=== PATIENT | male | born 1935 | race Caucasian/White ===

== ENCOUNTER 2023-12-28 13:05 | Inpatient (IN) | payer OTHER, SELFPAY ==
[2023-12-26 14:24] VITALS: BP 86/44
[2023-12-26 15:03] LABS: % Basophils 0.9 % (0-2); % Eosinophils 5.8 % (0-6); % Immature Granulocytes 0.2 % (0-0.5); % Lymphocytes 16.3 % (20.5-51.1); % Monocytes 18.1 % (1.7-9.3); % Neutrophils 58.7 % (42.2-75.2); Absolute Eosinophils 0.3 10^3/uL (0-0.7); Absolute Lymphocytes 0.7 10^3/uL (1.2-3.4); Absolute Monocytes 0.8 10^3/uL (0.1-0.6); Absolute Neutrophils 2.6 10^3/uL (1.4-6.5); Hematocrit 28.6 % (39.0-52.0); Hemoglobin 9.2 g/dL (13.0-18.0); Mean Corp Hgb Conc. 32.2 g/dL (33.0-37.0); Mean Corpuscular Hgb 31.2 pg (27.0-31.0); Mean Corpuscular Volume 96.9 fL (80.0-94.0); Mean Platelet Volume 9.4 fL (7.4-10.4); Nucleated Red Blood Cells % 0 % (-); Platelet Count 140 10^3/uL (130-400); Red Blood Cell Count 2.95 10^6/uL (4.70-6.10); Red Cell Dist. Width 16.8 % (11.5-14.5); White Blood Cell Count 4.5 10^3/uL (4.8-10.8)
[2023-12-26 15:18] LABS: ALT (SGPT) 39 U/L (0-50); AST (SGOT) 45 U/L (17-59); Albumin 3.1 g/dl (3.5-5.0); Alkaline Phosphatase 122 U/L (38-126); Blood Urea Nitrogen 38 mg/dl (9-20); Calcium 8.5 mg/dl (8.4-10.2); Carbon Dioxide 28 mmol/L (22-30); Chloride 101 mmol/L (98-107); Glucose 85 mg/dl (70-99); Potassium 4.7 mmol/L (3.5-5.1); Sodium 135 mmol/L (135-145); Total Bilirubin 0.7 mg/dl (0.2-1.3); Total Protein 6.8 g/dl (6.3-8.2)
[2023-12-26 15:25] LABS: NT-proBNP 6990 pg/ml; Troponin I 0.102 ng/ml
[2023-12-26 16:39] VITALS: BP 107/79
[2023-12-26 17:00] VITALS: BP 95/54
--- NOTE | 2023-12-26 17:59 | ED.GENMED ---
History of Present Illness
General
Chief Complaint: Urinary Symptoms
Source: patient
Time Seen by Provider: 12/26/23 16:32
Travel History
Have you had any contact with someone who has COVID-19?: No
Do you have any symptoms of coronavirus? Fever > 100 degrees, chills, cough, shortness of breath, sore throat, loss of taste or smell, muscle aches, or headache?: No
History of Present Illness
History of Present Illness:
88-year-old female with history of atrial fibrillation on Eliquis, CHF, hypertension, history of syncope with pacemaker presenting to the emergency department for concern of hematuria. Patient arrives with daughter. Patient notes that last night
he had difficulty passing his urine. He believes that he did pass his urine in the middle the night, however was unable to pass his urine this morning. He called his daughter. When his daughter came to his house, did eventually pass urine,
however notes that it was bright red in color. He has since began urinating, bright red in color. Denies any history of urinary retention. Denies any history of obstruction in the past. Daughter notes that patient has been increasingly weak and
fatigued. He denies any chest pain, difficulty breathing, abdominal pain, fever. Denies additional acute medical complaint
Past History
Past History
ED Past Medical History: Arrthythmia, GERD and HTN
ED Past Surgical History: Cardiac (Ablation), Orthopedic and Other (Hernia repair)
Social History
Tobacco: Non-smoker
Personal:
Living: with family
Phy Exam
Physical Exam
Physical Exam:
GENERAL: Alert , in no apparent distress
EYE: pupils equal and reactive
NECK: Supple, no significant adenopathy.
ENT: o/p clr, mmm.
CARDIAC: Regular rate and rhythm .
LUNGS: Clear breath sounds bilaterally, no acute respiratory distress, no wheezes/rales/rhonchi
ABDOMEN: Soft, without focal tenderness, no r/g, no cvat
NEUROLOGICAL: Alert and oriented, no focal neuro deficits
SKIN: Warm and dry, skin intact.
MUSCULOSKELETAL: No edema, well perfused.
PSYCH: Normal and appropriate interaction.
Course
Orders/Labs/Results
Orders:
Orders
12/26/23 14:28
Electrocardiogram (*1) Urgent
Reason for Study: Fatigue / Weakness
EKG- Treatment ONCE
12/26/23 14:44
Complete Blood Count/With Diff Urgent
Comprehensive Metabolic Panel Urgent
NT-proBNP Urgent
Troponin I Urgent
12/26/23 16:48
CT Abd/pel Without Iv Or Oral Urgent
Comment:
Reason For Exam: hematuria
12/26/23 19:30
Urinalysis Urgent
Date Specimen was Collected: 12/26/23
Time Specimen was Collected: 19:09
Urine Microscopic Urgent
Date Specimen was Collected: 12/26/23
Time Specimen was Collected: 19:09
Abnormal Lab Results
12/26/23 12/26/23
14:44 19:30
WBC 4.5 L 10^3/uL
(4.8-10.8)
RBC 2.95 L 10^6/uL
(4.70-6.10)
Hgb 9.2 L g/dL
(13.0-18.0)
Hct 28.6 L %
(39.0-52.0)
MCV 96.9 H fL
(80.0-94.0)
MCH 31.2 H pg
(27.0-31.0)
MCHC 32.2 L g/dL
(33.0-37.0)
RDW 16.8 H %
(11.5-14.5)
Absolute Lymphs (auto) 0.7 L 10^3/uL
(1.2-3.4)
Absolute Monos (auto) 0.8 H 10^3/uL
(0.1-0.6)
Lymphocytes % 16.3 L %
(20.5-51.1)
Monocytes % 18.1 H %
(1.7-9.3)
BUN 38 H mg/dl
(9-20)
Creatinine 1.7 H mg/dL
(0.7-1.3)
Troponin I 0.102 H* ng/ml
Albumin 3.1 L g/dl
(3.5-5.0)
Urine Occult Blood 4+ A
(Negative)
Urine RBC 90-100 A /HPF
(0-2)
Urine Bacteria Few A
(Negative)
12/26/23 14:44
12/26/23 14:44
Vital Signs
Initial and Last Documented VS:
Initial Vital Signs
Temp Pulse Resp BP Pulse Ox
98.7 F 64 16 86/44 95
12/26/23 14:24 12/26/23 14:24 12/26/23 14:24 12/26/23 14:24 12/26/23 14:24
Last Documented Vital Signs
Temp Pulse Resp BP Pulse Ox
98.7 F 63 9 113/75 97
12/26/23 14:24 12/26/23 19:45 12/26/23 19:45 12/26/23 18:00 12/26/23 19:45
MDM/Problems Addressed
MDM/Problems Addressed:
88-year-old male with history of atrial fibrillation on Eliquis, CHF and history of syncope with a pacemaker presenting to the emergency department for hematuria. Vital signs on arrival significant for hypotension.
On my examination, patient resting comfortably. Blood pressure has improved. Patient's abdomen is soft and nondistended, without current concern for retention. Patient reports that he just urinated. He will try to give a sample. Patient had
laboratory analysis drawn for nursing protocol, hemoglobin stable with chronic anemia. Concern for hematuria in a patient on anticoagulation with presenting hypotension and fatigue, likely volume depletion. Patient with reportedly severe CHF.
Holding IV fluids. Will obtain CT abdomen pelvis without contrast, chronic kidney disease. Will discuss with urology
18:30 -patient with slight elevation in troponin. Suspected ischemic demand. No acute ischemia. Absence of chest pain
20:30 -CT without significant acute pathology. Patient was able to urinate and completely empty his bladder with normal postvoid residual. Urine is now yellow in color. No sign of urinary tract infection on urinalysis. On reassessment, remains
stable. However, report by son and daughter at bedside increased weakness and fatigue. Presenting hypotension with mild troponin elevation and small pleural effusion. Feel patient warrants admission for continued observation for continued
monitoring of hemodynamics and hemoglobin trending. Patient agreeable to plan
21:10 -Case discussed with urology on-call. Will see patient in the morning
*EKG
Interpreted by ED Provider?: Yes
EKG Intrepretation Date: 12/26/23
EKG Intrepretation Time: 18:00
Interpretation: abnormal
Comparison EKG: changes noted (Change in rhythm)
Heart Rate: 80
Rate: normal
Rhythm: PVC's and ventricular paced
Ischemia: no ischemia
*Critical Care Note
Total Time (30-74mins, 75-104mins- exclusive of procedures): Not Applicable
ED Attending Note
-
Portions of this chart may have been created with voice recognition software.� Occasional wrong word or��sound alike� substitutions may have occurred due to the inherent limitations of voice recognition software.
Discharge Plan
Departure
Patient Disposition: Admit
Date of Disposition: 12/26/23
Time of Disposition: 20:45
Admit to doctor: Dr. Miller
Presentation/result/management discussed w/ accepting MD/DO: Hospitalist
Patient with high blood pressure during this ER visit?: No
Condition: Good
Discharge Problem:
Hematuria, Acute hypotension, Generalized weakness
Prescriptions:
No Action
metoprolol succinate 25 mg Tablet Extended Release 24 Hr
25 mg PO HS
furosemide 40 mg Tablet
40 mg PO DAILY Qty: 30 0RF
Eliquis 2.5 mg Tablet
2.5 mg PO BID Qty: 60 0RF
amiodarone [Pacerone] 200 mg tablet
200 mg PO QPM
Referrals:
Epi Su DO [Family Provider] -
Interventions
Interventions:
*Risk Screen - Suicide Last Done: 12/26/23 18:00
*Neglect/Abuse Screening Last Done: 12/26/23 18:00
*ED COVID-19 Vaccine History Last Done: 12/26/23 14:24
ED-Male Genitourinary Assessment Last Done: 12/26/23 18:47
Discharge Date and Time
Print Language: DANISH
[2023-12-26 18:00] VITALS: BP 113/75
[2023-12-26 19:54] LABS: Urine Albumin Negative (Neg - Trace); Urine Bilirubin Negative (Negative); Urine Character Clear (Clear); Urine Color Yellow; Urine Glucose Negative (Negative); Urine Ketone Negative (Negative); Urine Leukocyte Negative (Negative); Urine Nitrite Negative (Negative); Urine Occult Blood 4+ (Negative); Urine Urobilinogen Negative (Neg - 1+)
[2023-12-26 20:26] LABS: Urine Squamous Cell 0-2 /LPF (Few)
[2023-12-26 20:27] LABS: Urine Bacteria Few (Negative); Urine Red Blood Cell 90-100 /HPF (0-2); Urine White Cell 0-2 /HPF (0-5)
--- NOTE | 2023-12-26 21:29 | HPS.HSE ---
Family Physician
-
Family Physician: Epi Su
Chief Complaint
-
Gross Hematuria
History of Present Illness
Patient is an 88y M with PMH significant for A-Fib and prostate cancer who presents to ED complaining of gross hematuria. Patient states that he woke this AM with urge to urinate. He states that he had difficulty passing any urine, but he did
not look to see what was in the toilet. He had a second episode a short time later and then noted bright red blood in the toilet and in his underwear. He had 2 additional episodes at home. He spoke with his daughter who is a nurse practitioner
and who recommended he drink plenty of fluids. He did so and just prior to leaving for the hospital he had an episode of normal appearing urination.
Since arrival in the ED he has had an additional 3 episodes of normal appearing urine without gross / trever bleeding.
Patient denies any pain whatsoever. He denies any lightheadedness, dizziness, chest pain or dyspnea.
Patient takes Eliquis for his A-Fib and states that he took his dose this AM.
He has a prior history of prostate cancer treated with external beam radiation.
He denies any prior history of significant hematuria.
Medical History
Past Medical History
Past Medical History: Reports Other
Additional Past Medical History:
Permanent Atrial Fibrillation
Severe Mitral Regurgitation
CKD Stage III
Essential Tremor
Thrombocytopenia
Past Surgical History: Reports Other
Additional Past Surgical History:
Paraesophageal Hernia and Gastric Volvulus Repair
Right Hip Replacement
Social History
Tobacco: Non-smoker
Alcohol: None
Family History
Family History: Not pertinent
Allergies / Home Medications
Allergies reflects when Allergies were last updated in [facility] [employer].
Home Medications with original date entered in [facility] [employer]
Allergy/Medication List:
Allergies
Allergy/AdvReac Type Severity Reaction Status Date / Time
shellfish derived Allergy Nausea Verified 12/26/23 14:27
Home Medications
metoprolol succinate 25 mg tablet,extended release 24 hr 25 mg PO HS Blood Pressure 12/13/22
apixaban 2.5 mg tablet (Eliquis) 2.5 mg PO BID #60 tabs 08/05/23
furosemide 40 mg tablet 40 mg PO DAILY Fluid retention/Swelling #30 tabs 08/05/23
amiodarone 200 mg tablet (Pacerone) 200 mg PO QPM 12/26/23
Review of Systems
-
History Source: Patient
A 12 point ROS was completed and negative except as noted: Yes
Constitutional: Denies Fever, Fatigue or Chills
Respiratory: Denies Cough or Trouble Breathing
Cardiac: Denies Chest Pain or Palpitations
Abdomen/GI: Denies Abdominal Pain, Nausea, Vomiting or Diarrhea
: Reports Difficulty Voiding and Bleeding; Denies Dysuria or Frequency
Musculoskeletal: Denies Joint Pain or Edema
Neurological: Denies Dizzy or Headache
Psych: Denies Depression or Anxiety
Physical Exam
Vital Signs
Vital Signs
Temp Pulse Resp BP Pulse Ox
98.7 F 66 18 113/75 94
12/26/23 14:24 12/26/23 21:00 12/26/23 21:00 12/26/23 18:00 12/26/23 20:45
Physical Exam
General: Other (88y M in no acute distress.)
HEENT: Moist mucous membranes and PERRLA
Respiratory: Clear; No Wheezes, Rales or Rhonchi
Cardiac: S1/S2 and Irregular Rhythm; No Murmur
GI: Soft, Non Tender, Non Distended and Normal Bowel Sounds
Genito-urinary: No costovertebral tender
Musculoskeletal: No Clubbing, No Cyanosis and Other (+1 edema at ankles bilaterally.)
Neuro: AO x 3 and Nonfocal/grossly intact
Laboratory Results
-
12/26/23 14:44
12/26/23 14:44
Laboratory Results
Total Bilirubin 0.7 mg/dl (0.2-1.3) 12/26/23 14:44
AST 45 U/L (17-59) 12/26/23 14:44
ALT 39 U/L (0-50) 12/26/23 14:44
Alkaline Phosphatase 122 U/L (38-126) 12/26/23 14:44
Troponin I 0.102 ng/ml H* 12/26/23 14:44
Impression/Plan
-
A/P: Patient is an 88y M with PMH significant for A-Fib on Eliquis and prostate cancer s/p prior XRT who presents to ED complaining of gross hematuria today.
Gross Hematuria
- Observe overnight for further evaluation and treatment.
- Hematuria appears to have cleared.
- CT done without evidence for stone, bladder lesion, etc.
- No radiographic evidence of hydro, retention, etc.
- Hold Eliquis.
- Follow for any recurrent hematuria.
- Urology evaluation for additional recommendations / work-up.
Permanent Atrial Fibrillation
- Stable. Continue amiodarone.
- Hold Eliquis as noted above.
- Continue metoprolol with hold parameters
Severe Mitral Regurgitation
- Stable. Hold Lasix acutely. Gentle IVFs overnight.
- Monitor Is&Os and Daily Weights
CKD Stage III
- Stable. Creatinine at baseline
- Monitor creatinine for any changes.
Macrocytic Anemia
- Stable. Hgb at / near known baseline.
- Follow for any changes s/p hematuria.
DVT proph: SCDs until able to resume Eliquis
Code Status: DNR
[2023-12-26] MEDS: SENOKOT 17.1999999999999993 MG PO (22:39)
[2023-12-26 23:00] VITALS: BP 85/50
[2023-12-26] MEDS: NSS 1000 IV (23:45)
[2023-12-26] MEDS: TOPROL XL PO (23:46)
[2023-12-26 23:50] VITALS: BMI 21.2
[2023-12-27] VITALS (20 sets, daily range): BP systolic 83–110; BP diastolic 51–84; BMI 21.2
[2023-12-27 05:31] LABS: Hematocrit 27.9 % (39.0-52.0); Hemoglobin 9.2 g/dL (13.0-18.0); Mean Corpuscular Hgb 31.5 pg (27.0-31.0); Mean Corpuscular Volume 95.5 fL (80.0-94.0); Mean Platelet Volume 9.2 fL (7.4-10.4); Platelet Count 132 10^3/uL (130-400); Red Blood Cell Count 2.92 10^6/uL (4.70-6.10); Red Cell Dist. Width 16.5 % (11.5-14.5); White Blood Cell Count 4.1 10^3/uL (4.8-10.8)
[2023-12-27 05:41] LABS: APTT 39.5 Sec (23.4-35.0); INR 1.44; PT 17.3 Sec (11.4-14.6)
[2023-12-27 05:53] LABS: Blood Urea Nitrogen 37 mg/dl (9-20); Calcium 8.8 mg/dl (8.4-10.2); Carbon Dioxide 28 mmol/L (22-30); Chloride 104 mmol/L (98-107); Estimated Creatinine Clearance 29 ml/min; Glucose 83 mg/dl (70-99); Potassium 4.2 mmol/L (3.5-5.1); Sodium 136 mmol/L (135-145); eGFR 41.19
--- NOTE | 2023-12-27 09:27 | CONS.URO ---
Consultation
-
Date/Time Consultation Performed: 12/27/23 0710
Performing Provider: Mahad
Reason for Consultation: hematuria
Medical History
History of Present Illness
88 yo male s/p XRT for Prostate Cancer at [facility] -- [pt cannot recall date or names of urologist or radiation oncologist] who experienced transient gross hematuria and voiding dysfunction was brought to ED and is admitted to
Past Medical History
Past Medical History: Other (Atrial Fibrillation Severe Mitral Regurgitation CKD Stage III Essential Tremor Thrombocytopenia)
Social History
Unable to obtain full social history at this time due to: Dementia
Allergies/Home Medications
Allergies
Allergy/AdvReac Type Severity Reaction Status Date / Time
shellfish derived Allergy Nausea Verified 12/26/23 14:27
Home Medications
�Medication �Instructions �Recorded �Confirmed �Type
metoprolol succinate 25 mg 25 mg PO HS Blood Pressure 12/13/22 12/26/23 History
tablet,extended release 24 hr
apixaban 2.5 mg tablet (Eliquis) 2.5 mg PO BID #60 tabs 08/05/23 12/26/23 Rx
furosemide 40 mg tablet 40 mg PO DAILY Fluid 08/05/23 12/26/23 Rx
retention/Swelling #30 tabs
amiodarone 200 mg tablet (Pacerone) 200 mg PO QPM 12/26/23 12/26/23 History
Physical Exam
Vital Signs
Vital Signs
Temp Pulse Resp BP Pulse Ox
97.8 F 63 16 100/70 96
12/27/23 07:00 12/27/23 08:00 12/27/23 08:00 12/27/23 08:00 12/27/23 08:00
Lab / Testing Results
Laboratory Results
12/27/23 05:17
12/27/23 05:17
Physical Exam
elderly male on ED bed
General: Well Developed, Well Nourished and No Apparent Distress
GI: Soft and Non Distended
Genito-urinary: No Costovertebral Tend
Skin: Warm and Dry
Neuro: Awake and Alert
Psych: Calm
Assessment / Plan
-
Impression: transient gross hematuria and voiding dysfunction; h/o prostatic radiation
Plan: cystoscopy -- tomorrow in OR, if possible; otherwise as an outpatient
Data Reviewed
-
CT Scan: Image personally visualized and interpreted
Lab Data: Labs Reviewed
Old Records: Reviewed
[2023-12-27] MEDS: ELIQUIS 2.5 MG PO ×2 (11:00→20:44)
--- NOTE | 2023-12-27 12:36 | W.PN.HOSP.TC ---
Today's Communication/Plan
-
Monitor for hematuria
Spoke with patient's daughter Kim -- she is concerned about cystoscopy in the setting of patient's cardiac conditions
Have asked urologist to call daughter Kim above about the procedure and how it can possibly be done without any anesthesia
AM labs/Hgb
Continue Eliquis
Continue monitoring on telemetry
Assessment / Plan
Assessment / Plan
Physical Exam
General: Not in acute distress
HEENT: Moist mucous membranes
Respiratory: Clear to Auscultation Bilaterally
Cardiac: S1/S2 and Irregular Rhythm
GI: Soft, Non Tender, Non Distended and Normal Bowel Sounds
Musculoskeletal: No Cyanosis and Other (+1 edema at ankles bilaterally.)
Neuro: AO x 3 and Nonfocal/grossly intact
A/P: Patient is an 88y M with PMH significant for A-Fib on Eliquis and prostate cancer s/p prior XRT who presents to ED complaining of gross hematuria.
Gross Hematuria
- Hematuria appears to have cleared.
- CT done without evidence for stone, bladder lesion, etc.
- No radiographic evidence of hydro, retention, etc.
- Continue Eliquis (as per urology, it is okay to continue Eliquis at this time)
- Follow for any recurrent hematuria.
- Urology consulted, recommendations appreciated: cystoscopy planned for tomorrow, they will call patient's daughter Kim before any procedures are done
Permanent Atrial Fibrillation
Paroxysmal typical atrial flutter and Atach
s/p PVI 08/2008
s/p PVI 03/2009
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
Prior atrial flutter, atrial tachycardia and atrial fibrillation ablations
- Stable. Continue amiodarone.
- Continue Eliquis
- Continue metoprolol with hold parameters
Chronic HFpEF
- Continue home Lasix
- Daily weights
- I's and O's
Severe Mitral Regurgitation
- Not a candidate for MitraClip per eval 2022
- Stable.
- Monitor Is&Os and Daily Weights
CKD Stage III
- Stable. Creatinine at baseline
- Monitor creatinine for any changes.
Macrocytic Anemia
- Stable. Hgb at / near known baseline.
- Follow for any changes s/p hematuria.
Moderate Stool on Imaging
- Bowel regimen
History of Prostate Cancer s/p XRT at [facility]
History of sustained symptomatic ventricular tachycardia
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
Moderate tricuspid regurgitation
Biatrial enlargement
History of GIB w/esophageal hernia repair (10/2011)
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
HTN
History of NSVT
History of Syncope
On December 27, 2023, I spoke to patient's daughter Kim who requested cardiac clearance prior to cystoscopy. I spoke to cardiology and urology, no need for cardio clearance for low-risk procedure at this time, urology will call patient's daughter
Kim.
DVT Prophylaxis: Eliquis
Code Status: DNR
Total time spent today on caring for patient, including chart review, seeing and examining the patient, reviewing and placing orders, speaking with patient's daughter, and discussing case with cardiology and urology, as well as documentation, was 70
minutes.
Anticipated Discharge: 24 - 48 hours
Subjective/Interval History
-
Date of Service: December 27, 2023
Patient was seen and examined. He reported feeling, denied any new significant symptoms or complaints.
Objective Data
-
Labs:
Laboratory Results
12/27/23
05:17
WBC 4.1 L
Hgb 9.2 L
Hct 27.9 L
Plt Count 132
PT 17.3 H
INR 1.44
APTT 39.5 H
Sodium 136
Potassium 4.2
Chloride 104
Carbon Dioxide 28
BUN 37 H
Creatinine 1.6 H
Glucose 83
Calcium 8.8
Vital Signs:
Vital Signs
Temp Pulse Resp BP Pulse Ox
97.6 F 62 18 98/65 97
12/27/23 11:00 12/27/23 11:00 12/27/23 11:00 12/27/23 11:00 12/27/23 11:00
I&O
12/26/23 12/27/23 12/28/23
06:59 06:59 06:59
Output Total 350 / 350
Balance -350 / -350
[2023-12-27] MEDS: LASIX 40 MG PO (13:55)
[2023-12-27 14:39] LABS: Troponin I 0.091 ng/ml
[2023-12-27] MEDS: NSS 1000 IV (16:59)
[2023-12-27] MEDS: PACERONE 200 MG PO (16:59)
[2023-12-27 17:43] LABS: Troponin I 0.094 ng/ml
[2023-12-27] MEDS: TOPROL XL 25 MG PO (20:44)
[2023-12-27] MEDS: SENOKOT 17.1999999999999993 MG PO (20:44)
[2023-12-27] MEDS: SENOKOT-S 1 TABLET PO (20:44)
[2023-12-28] VITALS (19 sets, daily range): BP systolic 87–122; BP diastolic 53–89; PULSE 65–67; O2SAT 98
[2023-12-28 05:04] LABS: Hematocrit 27.1 % (39.0-52.0); Hemoglobin 9.1 g/dL (13.0-18.0); Mean Corp Hgb Conc. 33.6 g/dL (33.0-37.0); Mean Corpuscular Hgb 31.7 pg (27.0-31.0); Mean Corpuscular Volume 94.4 fL (80.0-94.0); Platelet Count 136 10^3/uL (130-400); Red Blood Cell Count 2.87 10^6/uL (4.70-6.10); Red Cell Dist. Width 16.7 % (11.5-14.5); White Blood Cell Count 4.5 10^3/uL (4.8-10.8)
[2023-12-28 05:26] LABS: Blood Urea Nitrogen 34 mg/dl (9-20); Calcium 8.3 mg/dl (8.4-10.2); Carbon Dioxide 28 mmol/L (22-30); Chloride 104 mmol/L (98-107); Estimated Creatinine Clearance 36 ml/min; Glucose 89 mg/dl (70-99); Magnesium 1.8 mg/dl (1.6-2.3); Sodium 136 mmol/L (135-145); eGFR 52.84
[2023-12-28] MEDS: ELIQUIS 2.5 MG PO ×2 (08:16→21:36)
[2023-12-28] MEDS: SENOKOT-S 1 TABLET PO (08:17)
[2023-12-28] MEDS: MIRALAX 17 GRAMS PO (08:21)
[2023-12-28] MEDS: LASIX 40 MG PO (08:23)
--- NOTE | 2023-12-28 09:37 | W.SUR.PREOP ---
Pre-Operative Surgical Note
-
I have examined this patient prior to the performance of the scheduled procedure.
Telephone consent provided for diagnostic cystoscopy only by daughter, Kim Posada.
--- NOTE | 2023-12-28 10:36 | W.IMMPOSTOP ---
Surgical Immed Post Op Note
-
Primary Surgeon: JOHN
Pre-op Diagnosis: hematuria
Post-op Diagnosis: radiation-induced hemorrhagic cystitis
Procedure Performed: cysto
Anesthesia Type: sedation
Specimen / Cultures: none
Estimated Blood Loss: none
Complications: none
Operative Findings: sclerotic prostatic urethra and bladder neck with friable neovasularity c/w radiation changes
LMOM for daughter, Kim Albino
[2023-12-28] MEDS: Pyridium 200 MG PO (11:17)
--- NOTE | 2023-12-28 13:13 | CM ---
TT from [facility] nursing. Patient came to ER on 12/26/23. He was in ER until today when he had a procedure with Dr. Tobin. He has not walked for 3 days. PT and OT evaluated and recommend SNF. He lives alone in bi level house. Once up 6 steps to
all living areas he uses rolling walker.
He was at [facility] in July 2023.
PHarmacy: [facility]
PCP Dr. Epi Su
[facility], no beds today. SPoke to dgtr Jordan who lives in [facility]. SHe said to call other dgtr, Mariza to get SNF options. LEFt . SPoke to patient again. He agreed to referrals to 3 places listed from last admit, [facility], [facility] and
[facility]. Patient also agreed to [place] as it is close to [facility] [place].
[facility].
--- NOTE | 2023-12-28 15:20 | W.PN.HOSP.TC ---
Today's Communication/Plan
-
Cystoscopy performed
Gross hematuria resolved
250 cc IV fluid bolus for lower blood pressure
Acute rehab/SNF placement in progress
Assessment / Plan
Assessment / Plan
Physical Exam
General: Not in acute distress
HEENT: Moist mucous membranes
Respiratory: Clear to Auscultation Bilaterally
Cardiac: S1/S2 and Irregular Rhythm
GI: Soft, Non Tender, Non Distended and Normal Bowel Sounds
Musculoskeletal: No Cyanosis and Other (+1 edema at ankles bilaterally.)
Neuro: AO x 3 and Nonfocal/grossly intact
A/P: Patient is an 88y M with PMH significant for A-Fib on Eliquis and prostate cancer s/p prior XRT who presents to ED complaining of gross hematuria.
Gross Hematuria - RESOLVED - status post cystoscopy on December 28, 2023
- Hematuria appears to have cleared.
- CT done without evidence for stone, bladder lesion, etc.
- No radiographic evidence of hydro, retention, etc.
- Continue Eliquis (as per urology, it is okay to continue Eliquis)
- Follow for any recurrent hematuria.
- Urology consulted, recommendations appreciated: cystoscopy showed: sclerotic prostatic urethra and bladder neck with friable neovasularity c/w radiation changes
Hypotension
- Asymptomatic
- 250 cc IV fluid bolus
- Continue to monitor
Permanent Atrial Fibrillation
Paroxysmal typical atrial flutter and Atach
s/p PVI 08/2008
s/p PVI 03/2009
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
Prior atrial flutter, atrial tachycardia and atrial fibrillation ablations
- Stable. Continue amiodarone.
- Continue Eliquis
- Continue metoprolol with hold parameters
Chronic HFpEF
- Continue home Lasix
- Daily weights
- I's and O's
Severe Mitral Regurgitation
- Not a candidate for MitraClip per eval 2022
- Stable.
- Monitor Is&Os and Daily Weights
CKD Stage III
- Stable. Creatinine at baseline
- Monitor creatinine for any changes.
Macrocytic Anemia
- Stable. Hgb at / near known baseline.
- Follow for any changes s/p hematuria.
Moderate Stool on Imaging
- Bowel regimen
History of Prostate Cancer s/p XRT at [facility]
History of sustained symptomatic ventricular tachycardia
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
Moderate tricuspid regurgitation
Biatrial enlargement
History of GIB w/esophageal hernia repair (10/2011)
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
HTN
History of NSVT
History of Syncope
On December 27, 2023, I spoke to patient's daughter Kim who requested cardiac clearance prior to cystoscopy. I spoke to cardiology and urology, no need for cardio clearance for low-risk procedure at this time, urology will call patient's daughter
Kim.
On December 28, 2023, I spoke to patient's daughter Kim and how patient will need to go to acute rehab.
DVT Prophylaxis: Eliquis
Code Status: DNR
Anticipated Discharge: 24 - 48 hours
Subjective/Interval History
-
Date of Service: December 28, 2023
Patient was seen and examined. He was walking in the hallway with physical therapy. He denied any abdominal pain, and reported that his urine has cleared up.
Objective Data
-
Labs:
Laboratory Results
12/28/23
04:49
WBC 4.5 L
Hgb 9.1 L
Hct 27.1 L
Plt Count 136
Sodium 136
Potassium 5.0
Chloride 104
Carbon Dioxide 28
BUN 34 H
Creatinine 1.3
Glucose 89
Calcium 8.3 L
Vital Signs:
Vital Signs
Temp Pulse Resp BP Pulse Ox
98.8 F 69 16 104/70 92
12/28/23 10:24 12/28/23 14:24 12/28/23 14:24 12/28/23 14:24 12/28/23 14:24
I&O
12/27/23 12/28/23 12/29/23
06:59 06:59 06:59
Intake Total 720 / 720 300 / 300
Output Total 350 / 350 1400 / 1400
Balance -350 / -350 -680 / -680 300 / 300
[2023-12-28] MEDS: NSS 250 IV (15:26)
--- NOTE | 2023-12-28 16:50 | PTCARENOTE ---
Pt admitted into room 416-1 from PACU, ambulated from stretcher to bed with x2 assist. AAOx3, oriented pt to room. BP 86/58 manually, pt denying lightheadedness, dizziness, or any other symptoms, stating 'I am great'. MD Hunter notified, 250cc
bolus of NSS ordered and administered. BP now 90/56, no associated symptoms of hypotension. Plan of care ongoing.
[2023-12-28] MEDS: PACERONE 200 MG PO (18:06)
[2023-12-28] MEDS: SENOKOT-S PO ×2 (21:36→21:38)
[2023-12-28] MEDS: SENOKOT PO (21:38)
[2023-12-28] MEDS: TOPROL XL PO ×2 (23:00)
[2023-12-29] VITALS (7 sets, daily range): BP systolic 87–97; BP diastolic 48–61; PULSE 79–82; BMI 20.6
--- NOTE | 2023-12-29 00:07 | PTCARENOTE ---
Pt's BP at 1900 was 87/53 in his left upper arm after a 250mL normal saline bolus. BP at 2300 was 91/53, pt remains asymptomatic. Pt's Toprol XL 25mg HS has hold parameters stating to hold for SBP< 90, hold for HR < 55. [employer] Eber Marinelli
notified of pt's BP, will hold Toprol XL 25mg tonight and will continue to monitor BP.
[2023-12-29 08:38] LABS: Hematocrit 29.8 % (39.0-52.0); Hemoglobin 9.7 g/dL (13.0-18.0); Mean Corp Hgb Conc. 32.6 g/dL (33.0-37.0); Mean Corpuscular Hgb 32.7 pg (27.0-31.0); Mean Corpuscular Volume 100.3 fL (80.0-94.0); Mean Platelet Volume 9.6 fL (7.4-10.4); Platelet Count 143 10^3/uL (130-400); Red Blood Cell Count 2.97 10^6/uL (4.70-6.10); White Blood Cell Count 4.9 10^3/uL (4.8-10.8)
[2023-12-29 09:01] LABS: Blood Urea Nitrogen 36 mg/dl (9-20); Calcium 8.6 mg/dl (8.4-10.2); Carbon Dioxide 27 mmol/L (22-30); Chloride 100 mmol/L (98-107); Estimated Creatinine Clearance 28 ml/min; Glucose 105 mg/dl (70-99); Magnesium 1.9 mg/dl (1.6-2.3); Potassium 4.6 mmol/L (3.5-5.1); Sodium 135 mmol/L (135-145); eGFR 41.19
[2023-12-29] MEDS: LASIX PO (09:06)
[2023-12-29] MEDS: MIRALAX 17 GRAMS PO (09:11)
[2023-12-29] MEDS: ELIQUIS 2.5 MG PO ×2 (09:11→20:51)
[2023-12-29] MEDS: SENOKOT-S 1 TABLET PO ×2 (09:11→20:52)
--- NOTE | 2023-12-29 09:31 | CON.CAR ---
Addendum entered and electronically signed by Sonu Florez MD 12/29/23 12:13:
I saw and examined the patient.
The Recreation Teacher's note was reviewed and I agree with the note.
Comment:
GEN: No distress, awake, Ox3
HEENT: supple, anicteric, mmm
LUNGS: CTA, no wheezes/rales
CV: Reg, S1/S2, 1/6 syst LSB, no gallop
ABD: soft, BS+, NT/ND
EXT: trace edema
NEURO: Gross non-focal
SKIN: No rash
Plan:
He is well-known to our service with a past medical history of chronic heart failure with preserved ejection fraction, ventricular tachycardia, severe mitral regurgitation, and permanent atrial flutter. He came to the emergency room with hematuria
status post cystoscopy. Cystoscopy was overall unremarkable. His Lasix was recently increased to 40 mg daily and then 40 mg twice daily. He was having some fatigue and hypotension.
Recommend decrease Lasix back to 20 mg daily starting tomorrow. Creatinine up to 1.6. His volume status overall looks relatively stable.
Continue amiodarone, Toprol, and Eliquis.
Hemoglobin overall stable at 9.7
Original Note:
Consultation
Consultation Request
Date/Time Consultation Requested: 12/28/23 at 2043
Date/Time Consultation Performed: 12/28/23 at 0931
Requesting Provider: Dr. Hunter
Performing Provider: Dr. Florez
Reason for Consultation: Hypotension, hematuria
Medical History
-
History of Present Illness:
Patient came to [facility] Tuesday with hematuria and cardiology is now consulted for hypotension. Patient had cystoscopy yesterday and there was friable tissue, but no masses. Eliquis 2.5 mg BID for known permanent Afib. Patient noted to be hypotensive on
and off since admission. Called and talked with patient's daughter, Kim, by phone and she reports that after patient was seen by me in the office 10/11/23 and his Lasix was increased to 40 mg daily and then later a telephone task where the dose
was raised a bit again to 40 mg BID and that following those increases his LE edema dramatically improved. He had an episode at home last week where he was weak and SBP was in the 70s. Patient currently denies feeling lightheaded, but is in bed. No
chest pain or SOB. Today's dose of Lasix was held. He has been getting his usual doses of amiodarone and Toprol XL.
PMH:
Recent admission for sustained symptomatic ventricular tachycardia, s/p ICD 07/31/23 until 08/05/23
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
Chronic HFpEF
Severe MR
not a candidate for MitraClip per eval 2022
Permanent Afib
Paroxysmal typical atrial flutter and Atach
s/p PVI 08/2008
s/p PVI 03/2009
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
Prior atrial flutter, atrial tachycardia and atrial fibrillation ablations
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
Moderate tricuspid regurgitation
Biatrial enlargement
History of GIB w/esophageal hernia repair (10/2011)
CKD3
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
HTN
NSVT
Past Medical History
Past Medical History: Other (in HPI)
Past Surgical History: Orthopedic and Other (paraesophageal hernia repair)
Social History
Tobacco: Non-Smoker
Alcohol: None
Personal:
Living: With Family
Family History
Family History: Cancer and Other (HF)
Allergies / Home Medications
Allergy/AdvReac Type Severity Reaction Status Date / Time
shellfish derived Allergy Nausea Verified 12/26/23 14:27
�Medication �Instructions �Recorded �Confirmed �Type
metoprolol succinate 25 mg 25 mg PO HS Blood Pressure 12/13/22 12/26/23 History
tablet,extended release 24 hr
apixaban 2.5 mg tablet (Eliquis) 2.5 mg PO BID #60 tabs 08/05/23 12/26/23 Rx
furosemide 40 mg tablet 40 mg PO DAILY Fluid 08/05/23 12/26/23 Rx
retention/Swelling #30 tabs
amiodarone 200 mg tablet (Pacerone) 200 mg PO QPM Arrhythmia 12/26/23 12/26/23 History
Review of Systems
-
History Source: Patient
All other systems: Negative unless noted
Physical Exam
Vital Signs
Temp Pulse Resp BP Pulse Ox
97.9 F 78 16 87/55 92
12/29/23 07:00 12/29/23 09:06 12/29/23 07:00 12/29/23 09:06 12/29/23 07:00
GEN: NAD, AAO x3
HEENT: EOMI, MMM
LUNGS: CTA B/L without wheeze or rales
CV: Reg, 2/6 apical holosystolic murmur
ABD: soft, +BS, NT, ND
EXT: No clubbing, cyanosis, lesions or edema B/L
NEURO: Gross non-focal
SKIN: Warm, dry and pink. No rash
Lab Results
12/29/23 07:33
12/29/23 07:33
Troponin I 0.094 ng/ml H* 12/27/23 17:11
Uuz-I-Irngszbhzev Pept 6990 pg/ml 12/26/23 14:44
Impression / Plan
-
PCP: Dr. Su
Cardiology: Dr. Luis Alberto Simms
Impression:
Admitted with hematuria
Hypotension
Recent admission for sustained symptomatic ventricular tachycardia, s/p ICD 07/31/23 until 08/05/23
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
Chronic HFpEF
Severe MR
not a candidate for MitraClip per eval 2022
Permanent Afib
Paroxysmal typical atrial flutter and Atach
s/p PVI 08/2008
s/p PVI 03/2009
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
Prior atrial flutter, atrial tachycardia and atrial fibrillation ablations
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
Moderate tricuspid regurgitation
Biatrial enlargement
History of GIB w/esophageal hernia repair (10/2011)
CKD3
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
HTN
LINNEA 12/13/22 : EF 60 to 65%, normal RV size, moderately dilated LA and mildly dilated RA, Mitral valve leaflets are thickened with restricted posterior leaflet predominantly at P2 with eccentric jet of severe MR that originates at the junction of A2
and P2. Mild leaflet calcification, moderate TR�
Echo 08/01/23: EF 60 to 65%, no regional wall motion abnormalities, severely dilated LA/RA, moderate to severe MR, mild aortic insufficiency, moderate TR with severe PHTN and PAP 65 to 70 mmHg
Plan:
-Patient came to [facility] Tuesday with hematuria and cardiology is now consulted for hypotension. Patient had cystoscopy yesterday and there was friable tissue, but no masses. Eliquis 2.5 mg BID for known permanent Afib. Patient noted to be hypotensive
on and off since admission. Called and talked with patient's daughter, Kim, by phone and she reports that after patient was seen by me in the office 10/11/23 and his Lasix was increased to 40 mg daily and then later a telephone task where the
dose was raised a bit again to 40 mg BID and that following those increases his LE edema dramatically improved. He had an episode at home last week where he was weak and SBP was in the 70s. Patient currently denies feeling lightheaded, but is in
bed. No chest pain or SOB. Today's dose of Lasix was held. He has been getting his usual doses of amiodarone and Toprol XL.
-Called and talked with patient's daughter who is an COMPUTER NUMERICAL CONTROL GRINDER, Kim, and reviewed hospitalization and med changes thus far. Made a plan to restart Lasix at a lower dose of 20 mg PO daily starting tomorrow. Will add recommendations for daily weights and
to increase dose of Lasix PRN weight gain
-Cont amiodarone 200 mg HS for h/o permanent Afib for rate control and also for h/o sustained VT.
-Cont usual dose of Toprol XL 25 mg HS as well
-He has not missed any doses of Eliquis 2.5 mg BID (age 88, Cre 1.6) and will continue as is.
-Troponin as high as 0.094. He has mild noncritical CAD by cath 08/01/23.
--- NOTE | 2023-12-29 11:10 | WOUNDNOTE ---
WON RN note: Patient admitted with Hematuria, acute hypotension and weakness.
See H&P for complete history. Patient lives alone, daughter nearby.
PMH:Psoriasis, a fib (Eliquis), cardiac ablation, CKD3b, thrombocytopenia, R hip replacement,prostate cancer with XRT.
Wound Location and type/assessment: Patient Known to service, last seen 08/04/23 s/p I&D of chronic infected lump on spine, now healed. Sacrum with blanchable red skin, patient able to turn on own. Heels are intact, using SCD's. Patient able to
ambulate to BR using walker and minimal assist.
Appetite: Good.
Pressure redistribution devices in place: Accumax bed, moves self in bed. pillow placed under calves. Air chair cushion placed on chair, instructed patient can take upon discharge.
Plan: Silicone foam changed on spine and sacrum for protection. Care plan to be updated and will follow as needed.
Note to case management of equipment requested for discharge: None.
--- NOTE | 2023-12-29 14:53 | CM ---
MEt with patient. [facility] has accepted for admit tomorrow. [facility] liaison made aware and will get auth for SNF.
Patient's dgtr could drive him over to [facility] but not until later in afternoon. Navigator will confirm transport with dgtr tomorrow.
--- NOTE | 2023-12-29 15:09 | W.PN.HOSP.TC ---
Today's Communication/Plan
-
Lasix held today, resume reduced dose tomorrow
AM labs
Appreciate cardiology recommendations
Assessment / Plan
Assessment / Plan
Physical Exam
General: Not in acute distress
HEENT: Moist mucous membranes
Respiratory: Clear to Auscultation Bilaterally
Cardiac: S1/S2 and Irregular Rhythm
GI: Soft, Non Tender, Non Distended and Normal Bowel Sounds
Musculoskeletal: No Cyanosis and Other (+1 edema at ankles bilaterally.)
Neuro: AO x 3 and Nonfocal/grossly intact
A/P: Patient is an 88y M with PMH significant for A-Fib on Eliquis and prostate cancer s/p prior XRT who presents to ED complaining of gross hematuria.
Gross Hematuria - RESOLVED - status post cystoscopy on December 28, 2023
- Hematuria appears to have cleared.
- CT done without evidence for stone, bladder lesion, etc.
- No radiographic evidence of hydro, retention, etc.
- Continue Eliquis (as per urology, it is okay to continue Eliquis)
- Follow for any recurrent hematuria.
- Urology consulted, recommendations appreciated: cystoscopy showed: sclerotic prostatic urethra and bladder neck with friable neovasularity c/w radiation changes
Hypotension
- Asymptomatic
- 250 cc bolus on 12/28/23
- Cardiology consulted, recommendations appreciated
- Lasix held on 12/29/23
- Resume Lasix at reduced dose of 20 mg daily tomorrow 12/29/23
Permanent Atrial Fibrillation
Paroxysmal typical atrial flutter and Atach
s/p PVI 08/2008
s/p PVI 03/2009
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
Prior atrial flutter, atrial tachycardia and atrial fibrillation ablations
- Stable. Continue amiodarone.
- Continue Eliquis
- Continue Metoprolol Succinate with hold parameters
Chronic HFpEF
- Continue on 12/29/23 home Lasix at reduced dose - will need to continue daily weights at home and to increase dose of Lasix PRN weight gain
- Daily weights
- I's and O's
Severe Mitral Regurgitation
- Not a candidate for MitraClip per eval 2022
- Stable.
- Monitor Is&Os and Daily Weights
CKD Stage III
- Stable. Creatinine at baseline
- Monitor creatinine for any changes.
Macrocytic Anemia
- Stable. Hgb at / near known baseline.
- Follow for any changes s/p hematuria.
Moderate Stool on Imaging
- Bowel regimen
History of Prostate Cancer s/p XRT at [facility]
History of sustained symptomatic ventricular tachycardia
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
Moderate tricuspid regurgitation
Biatrial enlargement
History of GIB w/esophageal hernia repair (10/2011)
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
HTN
History of NSVT
History of Syncope
On December 27, 2023, I spoke to patient's daughter Kim who requested cardiac clearance prior to cystoscopy. I spoke to cardiology and urology, no need for cardio clearance for low-risk procedure at this time, urology will call patient's daughter
Kim.
On December 28, 2023, I spoke to patient's daughter Kim and how patient will need to go to acute rehab.
DVT Prophylaxis: Eliquis
Code Status: DNR
Anticipated Discharge: 24 - 48 hours
Subjective/Interval History
-
Date of Service: December 29, 2023
Patient was seen and examined. He was standing up at the time he was seen, denied any dizziness or chest pain, or any other symptoms/complaints.
Objective Data
-
Labs:
Laboratory Results
12/29/23
07:33
WBC 4.9
Hgb 9.7 L
Hct 29.8 L
Plt Count 143
Sodium 135
Potassium 4.6
Chloride 100
Carbon Dioxide 27
BUN 36 H
Creatinine 1.6 H
Glucose 105 H
Calcium 8.6
Vital Signs:
Vital Signs
Temp Pulse Resp BP Pulse Ox
97.6 F 75 14 93/58 96
12/29/23 11:00 12/29/23 11:00 12/29/23 11:00 12/29/23 11:00 12/29/23 11:00
I&O
12/28/23 12/29/23 12/30/23
06:59 06:59 06:59
Intake Total 720 / 720 1740 / 1740
Output Total 1400 / 1400 425 / 425 225 / 225
Balance -680 / -680 1315 / 1315 -225 / -225
[2023-12-29] MEDS: PACERONE 200 MG PO (19:12)
[2023-12-29] MEDS: TOPROL XL PO (23:15)
[2023-12-29] MEDS: SENOKOT 17.1999999999999993 MG PO (23:25)
--- NOTE | 2023-12-29 23:30 | PTCARENOTE ---
Pt's BP at 2300 96/58, HR 82. Pt is asymptomatic at this time. House STALLION KEEPER Eber Marinelli notified and gave this RN a verbal order to hold Toprol XL 25mg tonight and continue to monitor HR and BP.
[2023-12-30 03:19] VITALS: BP 93/58
[2023-12-30 05:23] VITALS: BMI 21.0
[2023-12-30 07:55] VITALS: BP 106/73
--- NOTE | 2023-12-30 08:19 | CM ---
Addendum entered by JENNIFER Leone 12/30/23 13:37:
[facility]anti auth approved 5 days skilled level 1 (12/29-01/02)[facility] # [id number].
AUth provided By Santi to [facility] admissions.
Addendum entered by JENNIFER Leone 12/30/23 12:33:
report to be called to [phone]
fax [phone]
Addendum entered by JENNIFER Leone 12/30/23 11:56:
IMM signed by patient.
Addendum entered by JENNIFER Leone 12/30/23 11:22:
Patient cleared for discharge. Spoke to [facility] who wants to transport as last discharge ambulance was very delayed.
SPoke to Lacie at [facility] admissions. They have bed ready. Francisco REp updated and will get auth for SNF.
Original Note:
Navigator Asked for PT to see this morning in order to get auth for [facility] today. Spoke to attending who will discuss discharge with cardiology.
[2023-12-30 08:31] LABS: Hematocrit 28.1 % (39.0-52.0); Hemoglobin 9.1 g/dL (13.0-18.0); Mean Corp Hgb Conc. 32.4 g/dL (33.0-37.0); Mean Corpuscular Hgb 31.5 pg (27.0-31.0); Mean Corpuscular Volume 97.2 fL (80.0-94.0); Mean Platelet Volume 9.5 fL (7.4-10.4); Platelet Count 148 10^3/uL (130-400); Red Blood Cell Count 2.89 10^6/uL (4.70-6.10); Red Cell Dist. Width 17.2 % (11.5-14.5); White Blood Cell Count 5.6 10^3/uL (4.8-10.8)
[2023-12-30] MEDS: LASIX 20 MG PO (08:42)
[2023-12-30] MEDS: ELIQUIS 2.5 MG PO (08:43)
[2023-12-30] MEDS: MIRALAX 17 GRAMS PO (08:43)
[2023-12-30] MEDS: SENOKOT-S 1 TABLET PO (08:43)
[2023-12-30 09:17] VITALS: PULSE 79; O2SAT 95
[2023-12-30 09:24] LABS: Blood Urea Nitrogen 38 mg/dl (9-20); Calcium 8.6 mg/dl (8.4-10.2); Carbon Dioxide 30 mmol/L (22-30); Chloride 102 mmol/L (98-107); Estimated Creatinine Clearance 29 ml/min; Glucose 85 mg/dl (70-99); Magnesium 1.8 mg/dl (1.6-2.3); Potassium 4.6 mmol/L (3.5-5.1); Sodium 136 mmol/L (135-145); eGFR 41.19
[2023-12-30 11:21] VITALS: BP 103/68; BP 92/62; PULSE 77; PULSE 81
--- NOTE | 2023-12-30 12:21 | W.PN.HOSP.TC ---
Addendum entered and electronically signed by Pedro Hunter MD 12/30/23 13:20:
Stage 2 sacral pressure injury, POA.
Original Note:
Today's Communication/Plan
-
Discharge today
Assessment / Plan
Assessment / Plan
Physical Exam
General: Not in acute distress
HEENT: Moist mucous membranes
Respiratory: Clear to Auscultation Bilaterally
Cardiac: S1/S2 and Regular Rhythm
GI: Soft, Non Tender, Non Distended and Normal Bowel Sounds
Musculoskeletal: No Cyanosis and Other (+1 edema at ankles bilaterally.)
Neuro: AO x 3 and Nonfocal/grossly intact
A/P: Patient is an 88y M with PMH significant for A-Fib on Eliquis and prostate cancer s/p prior XRT who presents to ED complaining of gross hematuria.
Gross Hematuria - RESOLVED - status post cystoscopy on December 28, 2023
- Hematuria appears to have cleared.
- CT done without evidence for stone, bladder lesion, etc.
- No radiographic evidence of hydro, retention, etc.
- Continue Eliquis (as per urology, it is okay to continue Eliquis)
- Follow for any recurrent hematuria.
- Urology consulted, recommendations appreciated: cystoscopy showed: sclerotic prostatic urethra and bladder neck with friable neovasularity c/w radiation changes
Hypotension
- Asymptomatic
- 250 cc bolus on 12/28/23
- Cardiology consulted, recommendations appreciated
- Lasix held on 12/29/23
- Continue Lasix at reduced dose of 20 mg daily
- Toprol XL dose will be reduced to 12.5 mg daily
Permanent Atrial Fibrillation
Paroxysmal typical atrial flutter and Atach
s/p PVI 08/2008
s/p PVI 03/2009
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
Prior atrial flutter, atrial tachycardia and atrial fibrillation ablations
- Stable. Continue amiodarone.
- Continue Eliquis
- Reduce Metoprolol Succinate to 12.5 mg daily, with hold parameters
Chronic HFpEF
- Continue on 12/29/23 home Lasix at reduced dose - will need to continue daily weights at home and to increase dose of Lasix PRN weight gain
- Daily weights
- I's and O's
Severe Mitral Regurgitation
- Not a candidate for MitraClip per eval 2022
- Stable.
- Monitor Is&Os and Daily Weights
CKD Stage III
- Stable. Creatinine at baseline
- Monitor creatinine for any changes.
Macrocytic Anemia
- Stable. Hgb at / near known baseline.
- Follow for any changes s/p hematuria.
Moderate Stool on Imaging
- Bowel regimen
History of Prostate Cancer s/p XRT at [facility]
History of sustained symptomatic ventricular tachycardia
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
Moderate tricuspid regurgitation
Biatrial enlargement
History of GIB w/esophageal hernia repair (10/2011)
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
HTN
History of NSVT
History of Syncope
On December 27, 2023, I spoke to patient's daughter Kim who requested cardiac clearance prior to cystoscopy. I spoke to cardiology and urology, no need for cardio clearance for low-risk procedure at this time, urology will call patient's daughter
Kim.
On December 28, 2023, I spoke to patient's daughter Kim and how patient will need to go to acute rehab.
DVT Prophylaxis: Eliquis
Code Status: DNR
More than 30 minutes spent in discharge including
Final examination of the patient
Summarizing hospital stay
Instructions for continuing care to all relevant caregivers
Preparation of discharge records, prescriptions, and referral forms
Total time spent (in minutes): 37
Anticipated Discharge: Today
Subjective/Interval History
-
Date of Service: December 30, 2023
Patient was seen and examined. He denied any dizziness, chest pain, shortness of breath or blood in his urine.
Objective Data
-
Labs:
Laboratory Results
12/30/23
07:58
WBC 5.6
Hgb 9.1 L
Hct 28.1 L
Plt Count 148
Sodium 136
Potassium 4.6
Chloride 102
Carbon Dioxide 30
BUN 38 H
Creatinine 1.6 H
Glucose 85
Calcium 8.6
Vital Signs:
Vital Signs
Temp Pulse Resp BP Pulse Ox
97.5 F 77 18 92/62 96
12/30/23 11:21 12/30/23 11:21 12/30/23 11:21 12/30/23 11:21 12/30/23 11:21
I&O
12/29/23 12/30/23 12/31/23
06:59 06:59 06:59
Intake Total 1740 / 1740 960 / 960
Output Total 425 / 425 525 / 525
Balance 1315 / 1315 435 / 435
--- NOTE | 2023-12-30 12:39 | PN.CDI ---
CDI
- -
CDI:
Physician Documentation Request
Admit Date: 12/28/23 13:05
Dear Doctor Dale,
Patient admitted with gross hematuria.
12/27 Nursing skin assessment, 'Stage 2 sacral pressure injury, POA.'
Physician documentation of the type and location of wounds is required for compliant documentation. Based on the above clinical findings and your assessment, please provide the following in your progress note:
Type (etiology) of ulcer/wound:
- Pressure (decubitus) ulcer
- Other
- Unable to determine
For a pressure ulcer, please also include the stage* of the ulcer:
- Stage 1 - Skin intact, non-blanchable redness
- Stage 2 - Partial thickness loss of dermis, includes intact or open blister
- Stage 3 - Full thickness tissue not including bone, tendon or muscle
- Stage 4 - Full thickness tissue loss, including exposed bone, tendon or muscle
- Unstageable - Full thickness loss in which the base of the ulcer is covered by slough (yellow, paez, worrell, green or brown) and/or eschar (paez, brown or black) in the wound bed.
- Unable to determine
Use of terms such as suspected, likely, concern for, or probable (associated with a specific diagnosis that is being evaluated, monitored, or treated as if it exists) are acceptable and can be coded in the inpatient setting, when documented at the
time of discharge.
Thank you,
Radha ESTRELLA,RN,CCDS
CDI Specialist
Available via [place] text
Please use your independent medical judgment in providing your response.
*Source: National Pressure Ulcer Advisory Panel (NPUAP)
== END 2023-12-30 15:24 | DRG 699 ==
LOC: 4 WEST ACU 13:05
PROVIDERS: Emergency Medicine; ADMITTING PHYSICIAN Hospitalist; ATTENDING PHYSICIAN Hospitalist; CONSULT PHYSICIAN Internal Medicine Cardiovascular Disease; CONSULT PHYSICIAN Specialist; EMERGENCY PHYSICIAN Student in an Organized Health Care Education/Training Program; FAMILY PHYSICIAN Internal Medicine
PROC: 0TJB8ZZ Inspection of Bladder, Via Natural or Artificial Opening Endoscopic (ICD-10-PCS; 2023-12-28)
DX: N30.41 Irradiation cystitis with hematuria (principal); I13.0 Hypertensive heart and chronic kidney disease with heart failure and stage 1 through stage 4 chronic kidney disease, or unspecified chronic kidney disease; I48.21 Permanent atrial fibrillation; I50.32 Chronic diastolic (congestive) heart failure; Y84.2 Radiological procedure and radiotherapy as the cause of abnormal reaction of the patient, or of later complication, without mention of misadventure at the time of the procedure; Y82.8 Other medical devices associated with adverse incidents; N18.30 Chronic kidney disease, stage 3 unspecified; L89.152 Pressure ulcer of sacral region, stage 2; Z85.46 Personal history of malignant neoplasm of prostate; Z79.01 Long term (current) use of anticoagulants
CPT/HCPCS: 51798; 74176; 80048; 80053; 81003; 81015; 83735; 83880; 84484; 85025; 85027; 85610; 85730; 93005; 97116; 97530; 99285

== ENCOUNTER → 2024-01-04 13:22 | Outpatient (REF) | payer OTHER, SELFPAY ==
[2024-01-04 14:22] LABS: % Basophils 0.6 % (0-2); % Eosinophils 6.6 % (0-6); % Immature Granulocytes 0.6 % (0-0.5); % Lymphocytes 15.8 % (20.5-51.1); % Monocytes 17.5 % (1.7-9.3); % Neutrophils 58.9 % (42.2-75.2); Absolute Eosinophils 0.3 10^3/uL (0-0.7); Absolute Lymphocytes 0.7 10^3/uL (1.2-3.4); Absolute Monocytes 0.8 10^3/uL (0.1-0.6); Absolute Neutrophils 2.8 10^3/uL (1.4-6.5); Hematocrit 25.5 % (39.0-52.0); Hemoglobin 8.1 g/dL (13.0-18.0); Mean Corp Hgb Conc. 31.8 g/dL (33.0-37.0); Mean Corpuscular Hgb 31.3 pg (27.0-31.0); Mean Corpuscular Volume 98.5 fL (80.0-94.0); Mean Platelet Volume 9.4 fL (7.4-10.4); Nucleated Red Blood Cells % 0 % (-); Platelet Count 126 10^3/uL (130-400); Red Blood Cell Count 2.59 10^6/uL (4.70-6.10); Red Cell Dist. Width 18.3 % (11.5-14.5); White Blood Cell Count 4.7 10^3/uL (4.8-10.8)
[2024-01-04 15:43] LABS: Blood Urea Nitrogen 42 mg/dl (9-20); Calcium 8.2 mg/dl (8.4-10.2); Carbon Dioxide 27 mmol/L (22-30); Chloride 106 mmol/L (98-107); Glucose 76 mg/dl (70-99); Potassium 4.6 mmol/L (3.5-5.1); Sodium 137 mmol/L (135-145); eGFR 41.19
== END ==
LOC: OLABP 13:22
PROVIDERS: ATTENDING PHYSICIAN Family Medicine
DX: M62.81 Muscle weakness (generalized) (principal); M62.59 Muscle wasting and atrophy, not elsewhere classified, multiple sites; R31.9 Hematuria, unspecified; I95.9 Hypotension, unspecified; Z95.810 Presence of automatic (implantable) cardiac defibrillator; I48.21 Permanent atrial fibrillation; I34.0 Nonrheumatic mitral (valve) insufficiency; D64.9 Anemia, unspecified; I25.10 Atherosclerotic heart disease of native coronary artery without angina pectoris; I50.9 Heart failure, unspecified; I13.0 Hypertensive heart and chronic kidney disease with heart failure and stage 1 through stage 4 chronic kidney disease, or unspecified chronic kidney disease; N18.30 Chronic kidney disease, stage 3 unspecified; Z85.46 Personal history of malignant neoplasm of prostate
CPT/HCPCS: 36415; 80048; 85025

== ENCOUNTER → 2024-01-05 10:20 | Outpatient (REF) | payer OTHER, SELFPAY ==
[2024-01-05 12:54] LABS: % Basophils 0.8 % (0-2); % Eosinophils 6.4 % (0-6); % Immature Granulocytes 0.4 % (0-0.5); % Lymphocytes 14.7 % (20.5-51.1); % Monocytes 17.4 % (1.7-9.3); % Neutrophils 60.3 % (42.2-75.2); Absolute Eosinophils 0.3 10^3/uL (0-0.7); Absolute Lymphocytes 0.7 10^3/uL (1.2-3.4); Absolute Monocytes 0.8 10^3/uL (0.1-0.6); Absolute Neutrophils 2.9 10^3/uL (1.4-6.5); Hematocrit 25.1 % (39.0-52.0); Mean Corp Hgb Conc. 31.9 g/dL (33.0-37.0); Mean Corpuscular Hgb 31.3 pg (27.0-31.0); Mean Platelet Volume 9.6 fL (7.4-10.4); Nucleated Red Blood Cells % 0 % (-); Platelet Count 127 10^3/uL (130-400); Red Blood Cell Count 2.56 10^6/uL (4.70-6.10); Red Cell Dist. Width 18.3 % (11.5-14.5); White Blood Cell Count 4.8 10^3/uL (4.8-10.8)
[2024-01-05 13:32] LABS: Blood Urea Nitrogen 40 mg/dl (9-20); Calcium 8.3 mg/dl (8.4-10.2); Carbon Dioxide 27 mmol/L (22-30); Chloride 105 mmol/L (98-107); Glucose 75 mg/dl (70-99); Potassium 4.8 mmol/L (3.5-5.1); Sodium 136 mmol/L (135-145)
== END ==
LOC: OLABP 10:20
PROVIDERS: ATTENDING PHYSICIAN Family Medicine
DX: M62.81 Muscle weakness (generalized) (principal); M62.59 Muscle wasting and atrophy, not elsewhere classified, multiple sites; R31.9 Hematuria, unspecified; I95.9 Hypotension, unspecified; Z95.810 Presence of automatic (implantable) cardiac defibrillator; I48.21 Permanent atrial fibrillation; I34.0 Nonrheumatic mitral (valve) insufficiency; D64.9 Anemia, unspecified; I25.10 Atherosclerotic heart disease of native coronary artery without angina pectoris; I50.9 Heart failure, unspecified
CPT/HCPCS: 36415; 80048; 85025

== ENCOUNTER 2024-01-30 13:40 | Inpatient (IN) | payer OTHER, SELFPAY ==
[2024-01-30] VITALS (43 sets, daily range): BP systolic 65–149; BP diastolic 42–133; BMI 20.1; BMI 19.7
[2024-01-30 05:56] LABS: % Basophils 0.3 % (0-2); % Immature Granulocytes 0.3 % (0-0.5); % Lymphocytes 4.4 % (20.5-51.1); % Monocytes 13.7 % (1.7-9.3); % Neutrophils 81.3 % (42.2-75.2); Absolute Lymphocytes 0.3 10^3/uL (1.2-3.4); Absolute Monocytes 1.1 10^3/uL (0.1-0.6); Absolute Neutrophils 6.3 10^3/uL (1.4-6.5); Hematocrit 29.1 % (39.0-52.0); Hemoglobin 9.8 g/dL (13.0-18.0); Mean Corp Hgb Conc. 33.7 g/dL (33.0-37.0); Mean Corpuscular Volume 95.1 fL (80.0-94.0); Mean Platelet Volume 8.9 fL (7.4-10.4); Nucleated Red Blood Cells % 0 % (-); Platelet Count 150 10^3/uL (130-400); Red Blood Cell Count 3.06 10^6/uL (4.70-6.10); Red Cell Dist. Width 16.8 % (11.5-14.5); White Blood Cell Count 7.7 10^3/uL (4.8-10.8)
[2024-01-30 06:16] LABS: ALT (SGPT) 28 U/L (0-50); AST (SGOT) 40 U/L (17-59); Albumin 3.8 g/dl (3.5-5.0); Alkaline Phosphatase 103 U/L (38-126); Blood Urea Nitrogen 48 mg/dl (9-20); Carbon Dioxide 25 mmol/L (22-30); Chloride 97 mmol/L (98-107); Estimated Creatinine Clearance 19 ml/min; Glucose 143 mg/dl (70-99); Potassium 4.4 mmol/L (3.5-5.1); Sodium 132 mmol/L (135-145); Total Bilirubin 1.4 mg/dl (0.2-1.3); Total Protein 7.2 g/dl (6.3-8.2); eGFR 25.16
[2024-01-30 08:34] LABS: Urine Albumin 3+ (Neg - Trace); Urine Bilirubin Negative (Negative); Urine Character Bloody (Clear); Urine Color Red; Urine Glucose Negative (Negative); Urine Ketone 1+ (Negative); Urine Leukocyte Negative (Negative); Urine Nitrite Negative (Negative); Urine Occult Blood 4+ (Negative); Urine Urobilinogen Negative (Neg - 1+)
[2024-01-30 09:22] LABS: Urine Squamous Cell 0-2 /LPF (Few)
[2024-01-30 09:23] LABS: Urine Red Blood Cell >100 /HPF (0-2)
[2024-01-30] MEDS: ROCEPHIN 1000 MG IV (10:28)
--- NOTE | 2024-01-30 13:40 | HPS.HSE ---
Family Physician
-
Family Physician: Epi Su
Chief Complaint
-
Hematuria
History of Present Illness
Hematuria.
He was here a month ago with hematuria and had a cystoscopy which raised concern for radiation cystitis. He was resumed on Eliquis which is for cardiac indication. After rehab he went to live with the daughter and for the last 72 hours he has been
by himself. Was noticing intermittent blood in the urine but yesterday it got worse and last night it became profuse with clots and he started to have abdominal pain. He was noted to be in clot retention.
Now he feels better with resolution of abdominal pain.
He feels very sleepy as he did not have any stool from hematuria last night. He had to call ambulance at 4 AM today because of abdominal pain.
He denies any dizziness. He is feeling little cold and chilly.
Last dose of Eliquis last evening.
Denies shortness of breath.
No nausea or vomiting.
No chest pain.
He was ambulating okay with the aid at home.
Medical History
Past Medical History
Past Medical History: Reports Other
Additional Past Medical History:
Permanent Atrial Fibrillation
Severe Mitral Regurgitation
CKD Stage III
Essential Tremor
Thrombocytopenia
Past Surgical History: Reports Other
Additional Past Surgical History:
Paraesophageal Hernia and Gastric Volvulus Repair
Right Hip Replacement
Social History
Tobacco: Non-smoker
Alcohol: None
Family History
Family History: Not pertinent
Allergies / Home Medications
Allergies reflects when Allergies were last updated in [employer].
Home Medications with original date entered in [employer]
Allergy/Medication List:
Allergies
Allergy/AdvReac Type Severity Reaction Status Date / Time
shellfish derived Allergy Nausea Verified 12/26/23 14:27
Home Medications
metoprolol succinate 25 mg tablet,extended release 24 hr 25 mg PO HS Blood Pressure 12/13/22
apixaban 2.5 mg tablet (Eliquis) 2.5 mg PO BID #60 tabs 08/05/23
furosemide 40 mg tablet 40 mg PO DAILY Fluid retention/Swelling #30 tabs 08/05/23
amiodarone 200 mg tablet (Pacerone) 200 mg PO QPM 12/26/23
Review of Systems
-
A 12 point ROS was completed and negative except as noted: Yes
Physical Exam
Vital Signs
Vital Signs
Temp Pulse Resp BP Pulse Ox
97.7 F 98 20 128/63 96
01/30/24 05:16 01/30/24 13:15 01/30/24 13:15 01/30/24 13:00 01/30/24 07:00
Physical Exam
General: No Apparent Distress
HEENT: Moist mucous membranes
Respiratory: Clear
Cardiac: S1/S2 and Irregular Rhythm; No Tachycardia
GI: Soft and Non Tender
Genito-urinary: Bloody Urine and Continuous Bladder Irrigation
Neuro: AO x 3
Psych: Calm and Other (Dozing of in middle of sentences sometimes); No Confused
Laboratory Results
-
01/30/24 05:49
01/30/24 05:49
Laboratory Results
Total Bilirubin 1.4 mg/dl (0.2-1.3) H 01/30/24 05:49
AST 40 U/L (17-59) 01/30/24 05:49
ALT 28 U/L (0-50) 01/30/24 05:49
Alkaline Phosphatase 103 U/L (38-126) 01/30/24 05:49
Data Reviewed
-
Lab Data: Labs Reviewed by me
Impression/Plan
-
Acute hematuria with clot retention-patient with recent issue with hematuria and was diagnosed with possible radiation cystitis on cystoscopy. On Eliquis for cardiac indication and the last dose last evening. He is hemodynamically stable. H&H
stable compared to recent admission. Admit to hospital for hematuria management. Continue the CBI initiated in the ER. Hold Eliquis. Follow H&H closely.
Patient with some shakes and chills in the ER. Afebrile. WBC normal. Rule out concurrent UTI . Check UCX/BCX. Start on empiric abx.
MARIZOL on CKD 3 -follow creatinine with catheter insertion and clot retention resolution. Hold Lasix for today.
Paroxysmal atrial [id number]. Continue amiodarone. Hold Eliquis today with bleeding.
DNR
DW daughter Kim at bedside in ER including dx,tx plan and resuscitation wishes
[2024-01-30] MEDS: NSS 250 IV ×2 (14:37→16:00)
[2024-01-30 15:30] LABS: Hematocrit 21.7 % (39.0-52.0); Hemoglobin 7.4 g/dL (13.0-18.0)
[2024-01-30] MEDS: ProAmatine 5 MG PO ×2 (15:31→18:42)
--- NOTE | 2024-01-30 16:19 | CONS.URO ---
Medical History
History of Present Illness
89M presents to ED w/ acute onset of bloody urine w/ clot passage 24 hrs ago.
Noted intermittent hematuria initially - started to have abdominal pain last night w/ onset of clots.
On Eliquis for cardiac indications.
Last dose of Eliquis 01/28 evening.
Prior urologic h/o prostate cancer s/p XRT (treated @[facility] - pt cannot recall dates/names of urologist or radiation oncologist).
12/28/23: s/p inpatient cystoscopy w/ Dr. Tobin (during last admission) - sclerotic prostatic urethra and bladder neck with friable neovasularity c/w radiation changes.
Past Medical History
Past Medical History: CHF, Renal Failure (CKD III) and Other (atrial fibrilaltion, severe mitral regurgitation, essential tremor, thrombocytopenia, cardiomyopathy)
Past Surgical History: Cardiac (ICD) and Urological (radiation for prostate cancer)
Social History
Tobacco: Non-smoker
Alcohol: None
Drug: None
Living: Assisted Living
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
Family History
Family History: Reviewed & Not Pertinent
Allergies/Home Medications
Allergies
Allergy/AdvReac Type Severity Reaction Status Date / Time
shellfish derived Allergy Nausea Verified 12/26/23 14:27
Home Medications
�Medication �Instructions �Recorded �Confirmed �Type
amiodarone 200 mg tablet (Pacerone) 200 mg PO HS Arrhythmia 12/26/23 01/30/24 History
metoprolol succinate 25 mg 12.5 mg (1/2 x 25 mg) PO HS Blood 12/30/23 01/30/24 Rx
tablet,extended release 24 hr Pressure #60 tabs
apixaban 2.5 mg tablet (Eliquis) 2.5 mg PO BID Blood Clot 01/30/24 01/30/24 History
Prevention/Tx
clobetasol 0.05 % scalp solution 1 applic topical DAILY scalp 01/30/24 01/30/24 History
furosemide 40 mg tablet 40 mg PO DAILY Fluid 01/30/24 01/30/24 History
Retention/Swelling
midodrine 2.5 mg tablet 1.25 mg PO BID orthostatic 01/30/24 01/30/24 History
hypotension
Review of Systems
-
A 12 point Review of Systems was completed except as noted: Yes
Physical Exam
Vital Signs
Vital Signs
Temp Pulse Resp BP Pulse Ox
97.5 F 85 17 79/47 95
01/30/24 14:56 01/30/24 16:00 01/30/24 16:00 01/30/24 16:00 01/30/24 16:00
Lab / Testing Results
Laboratory Results
01/30/24 05:49
Physical Exam
General: No Apparent Distress
HEENT: Normocephalic and Anicteric
Respiratory: Non Labored Respirations
Breast: N/A
GI: Soft, Non Tender and Non Distended
Rectal: Deferred by Provider
Genito-urinary: No Costovertebral Tend, Bloody Urine and Jones Catheter
Musculoskeletal: No Edema
Skin: Warm and Dry
Neuro: AO x 3, No Motor Deficits and Nonfocal/Grossly Intact
Hematologic/Lymphatic: No Lymphadenopathy
Psych: Calm
Assessment / Plan
-
Radiation-induced hemorrhagic cystitis
Acute urinary retention w/ clot obstruction
H/o prostate cancer s/p XRT
MARIZOL on CKD III
Hgb 9.8 => 7.4 (secondary to acute hematuria w/ clots)
Cr 2.4 (elevated from baseline)
- 22Fr 3-way catheter placed in ER w/ initiation of CBI
- Continue CBI to until urine REMAINS clot-free and clear
- Hand irrigate q6hrs prn clot obstruction
- Trend H/H and Cr
- pRBC transfusion per Hospitalist/ICU team
- HOLD Eliquis
- No indication for surgical intervention (s/p inpatient cystoscopy 12/28/23 - radiation changes of prostate/bladder)
Urology following - please call w/ questions
D/w patient at bedside.
D/w Dr. Chen.
D/w RN.
Data Reviewed
-
Total Time Spent with Patient (in minutes): 65
Ultrasound: Discussed with Physician
Lab Data: Labs Reviewed, Discussed with Physician, Discussed with Nurse and Discussed with Patient
Old Records: Reviewed
--- NOTE | 2024-01-30 16:48 | CON.INTV ---
Consultation
Consultation Request
Date/Time Consultation Requested: 01/29
Date/Time Consultation Performed: 01/29
Reason for Consultation: Critical care
Medical History
-
History of Present Illness:
History obtained from family, patient, reviewing both outpatient and inpatient records. Patient is an 89-year-old male with history of atrial fibrillation on amiodarone therapy, history of heart failure with cardiomyopathy, ICD, severe MR, history
of ventricular tachycardia on chronic anticoagulation who presents with gross hematuria. Patient also described lower abdominal discomfort. He apparently had a cystoscopy with sclerotic prostatic urethra and bladder neck with friable
neovascularity consistent with radiation changes from his prostate cancer. Upon arrival to [facility], afebrile, pulse 98, breathing at 20, blood pressure 120/63, 96%. Initial hemoglobin noted to be 9.8, creatinine 2.4. CBI was initiated
in the ED. Anticoagulation was held. Patient developed worsening hypotension, with drop in hemoglobin from 9.8-7.4. With this, he was transferred to ICU for further management
Patient alert and answering questions without difficulty. He denies shortness of breath, chest pain, abdominal pain, nausea. He is alert and oriented and is aware of reason for hospitalization.
Abdominal pain has resolved since CBI placement and clearance of clots
.
PMH: Hypertension, hyperlipidemia, atrial fibrillation on chronic anticoagulation, severe mitral regurgitation, history of VT, ICD. History of GI bleed, right middle lobe nodule, history of prostate cancer/XRT at [facility], diverticulosis,
paraesophageal hiatal hernia. History of total right hip replacement, hernia repair, paraesophageal hernia repair, cardiac ablation and cardioversion
Past Medical History
Past Medical History: None (See above)
Past Surgical History: None (See above)
Social History
Tobacco: Non-smoker
Alcohol: None
Drug: None
Living: Assisted Living
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
Family History
Family History: Other (Family history negative for blood clots, lung cancer)
Allergies / Home Medications
Allergies
Allergy/AdvReac Type Severity Reaction Status Date / Time
shellfish derived Allergy Nausea Verified 12/26/23 14:27
Home Medications
�Medication �Instructions �Recorded �Confirmed �Last Taken �Type
amiodarone 200 mg tablet (Pacerone) 200 mg PO HS Arrhythmia 12/26/23 01/30/24 01/29/24 History
metoprolol succinate 25 mg 12.5 mg (1/2 x 25 mg) PO HS Blood 12/30/23 01/30/24 01/29/24 Rx
tablet,extended release 24 hr Pressure #60 tabs
apixaban 2.5 mg tablet (Eliquis) 2.5 mg PO BID Blood Clot 01/30/24 01/30/24 01/29/24 History
Prevention/Tx
clobetasol 0.05 % scalp solution 1 applic topical DAILY scalp 01/30/24 01/30/24 01/29/24 History
furosemide 40 mg tablet 40 mg PO DAILY Fluid 01/30/24 01/30/24 01/29/24 History
Retention/Swelling
midodrine 2.5 mg tablet 1.25 mg PO BID orthostatic 01/30/24 01/30/24 01/29/24 History
hypotension
Review of Systems
-
History Source: Family
All other systems: Negative unless noted
Vitals / Labs / Diagnostic Testing
Vital Signs
Temp Pulse Resp BP Pulse Ox
97.5 F 85 17 79/47 95
01/30/24 14:56 01/30/24 16:00 01/30/24 16:00 01/30/24 16:00 01/30/24 16:00
Lab Data
01/30/24 05:49
Diagnostic Testing:
Physical Exam
-
HEENT: Normocephalic and Anicteric
Cardiovascular: S1/S2, Regular Rhythm, Murmur (2/6 systolic murmur), Rub (n) and Peripheral Edema (n)
Respiratory: Wheeze (n), Rales (n), Rhonchi (n) and Non-Labored Respirations
GI: Soft, Non Distended and Non Tender
Neurology: Awake, Alert, Oriented and No Motor Deficits (Moves all extremities)
Skin: Good Color
General: Comfortable
Assessment
-
89-year-old male with history of prostate cancer status radiation complicated by bladder cystitis, bleeding and clots with recent hospital stay December 2023. Now presents with increased lower abdominal pain, hematuria. Admitted to ICU for
hypotension, anemia
Acute hypotension
Suspected secondary to bleeding, anemia
Gross hematuria
Clots, clear down CBI
Lower abdominal discomfort, now resolved
Anemia, hemoglobin dropped to 7.4
Pending transfusion
Hyponatremia
Acute renal insufficiency, creatinine 2.4
Baseline 1.7
CKD stage IIIb
Hyperglycemia
Conditions present prior to admission
Bilateral interstitial changes per abdominal imaging
Mild bronchiectasis, right pleural effusion/thickening
Subpleural right middle lobe nodule
Hypertension/hyperlipidemia
Right middle lobe nodule
Chronic atrial fibrillation on anticoagulation
Multiple PVI in the past
Ablation in the past
Amiodarone/Eliquis therapy
History of NSVT
ICD
Severe mitral regurgitation
History of heart failure, normal EF
Severe pulm hypertension, PA pressure 65
History of paraesophageal hernia with gastric volvulus repair
GI bleed
DNR
Plan/recommendations
At this time, patient is critically ill but stable. Hypotension noted, hemoglobin dropped to 7.4
Suspect hypotension is secondary to bleeding with a background of chronic hypotension recently started on midodrine therapy
Cardiac disease noted, severe pulm hypertension and valvular disease noted
Moving forward
Continue with supportive care
Gentle IV fluids. Assess post transfusion. 1 unit ordered by primary service
Midodrine has been given
Hopefully pressors can be avoided
Follow oxygen requirement carefully.
Chest x-ray with mild bilateral interstitial changes, suspected chronic
Antibiotics per primary service
Of note, patient remains on amiodarone therapy
Reviewed with critical care nursing, family, primary service
Will follow
TCCT 31 min
--- NOTE | 2024-01-30 16:51 | ED.GENMED ---
History of Present Illness
General
Chief Complaint: Urinary Symptoms
Source: patient
Exam Limitations: none
Time Seen by Provider: 01/30/24 06:06
Nursing documentation reviewed up to this point in time: agreed with
History of Present Illness
History of Present Illness:
89-year-old male with history as documented notable for A-fib on Eliquis who presents to the emergency room for evaluation of hematuria and difficulty urinating. He notably had admission in mid December during which he had hematuria and cystoscopy done
by Dr. Tobin. He says that he had been doing well since until yesterday when he started to notice some small amount of blood in his urine and this morning he said he passed some clots and had difficulty putting out urine. He has had
increasing abdominal pain since then. He also reports some constipation recently. He denies any fevers or chills. He denies any nausea or vomiting. He denies any flank pain. He denies complaints. He is on Eliquis as above.
Past History
Past History
ED Past Medical History: Arrthythmia, GERD and HTN
ED Past Surgical History: Cardiac (Ablation), Orthopedic and Other (Hernia repair)
Social History
Tobacco: Non-smoker
Personal:
Living: with family
Review of Systems
Review of Systems
All Other Systems: ROS reviewed and negative except as documented in HPI and ROS
Constitutional: Denies fever or chills
Respiratory: Denies trouble breathing
Cardiac: Denies chest pain
ABD/GI: Reports abdominal pain and constipated; Denies nausea or vomiting
: Reports difficulty voiding and bleeding; Denies flank pain
Musculoskeletal: Denies neck pain or back pain
Neurological: Denies dizzy or headache
Phy Exam
Physical Exam
Physical Exam:
General: Awake, alert, oriented x3; appears uncomfortable
Head: Normocephalic, atraumatic
Eyes: Conjunctiva normal
Throat: Airway intact, handling secretions
Neck: Trachea midline, supple without meningismus
Lungs: Clear to auscultation bilaterally, no wheezing, rales, rhonchi
Heart: Regular rate and rhythm
Abd: Soft, non distended, palpable bladder with suprapubic tenderness
: No scrotal swelling, normal circumcised penis, hypospadias
Back: No CVA tenderness
Neuro: No gross deficits
Skin: no rash
Extremities: No edema in extremities, equ warm and well-perfused
Scores
Heart Failure Risk
Heart Failure Risk Score: Not Applicable
Heart Score for Chest Pain Patients
STEMI patient?: Not applicable
Withdrawal Assessment of Alcohol
Withdrawal Assessment Completed?: Not applicable
Course
Orders/Labs/Results
Orders:
Orders
01/30/24 05:49
CMP [Comprehensive Metabolic Panel] Urgent
Complete Blood Count/With Diff Urgent
Magnesium Urgent
Comment: MAG ADDED ON BY FLOOR 4:40PM 01-30-24
01/30/24 06:08
Bladder Scan- Treatment ONCE
01/30/24 06:32
Lidocaine 2% [Lidocaine Uro-Jet 2%] 1 syringe .ROUTE .STK-MED ONE
01/30/24 07:48
Urinalysis Reflex To Culture Urgent
Date Specimen was Collected: 01/30/24
Time Specimen was Collected: 06:51
Urine Microscopic Reflex Cult Urgent
01/30/24 08:25
UROLOGY CONSULT Urgent
Consulting Provider: Eliezer Rogers
Was physician already notified: Yes
01/30/24 09:45
Lidocaine 2% [Lidocaine Uro-Jet 2%] 1 syringe .ROUTE .STK-MED ONE
01/30/24 Lunch
Regular
At Your Request: Limited Participation
01/30/24 10:08
CefTRIAXone [Rocephin] 1,000 mg IV NOW STA
01/30/24 10:26
Sterile Water [Sterile Water For Injection] 10 ml .ROUTE .STK-MED ONE
01/30/24 13:23
Admit/Transfer Patient As Directed
Co-Sign Provider:
Level of Care: Inpatient admission
Assign to:: ICU
Physician / Group: Gustavo
Diagnosis: Hematuria with clot retention ;on Eliquis
Reason for Hospitalization: see progress note
Expected length of stay greater than two midnights?: Yes
ELOS- Estimated Length of Stay in days: 4
I certify the patient meets the requirements for IP care: Yes
01/30/24 13:24
Code Status As Directed
Resuscitation Status: Do not resuscitate
Reached after discussion with pt or family/Healthcare POA: Yes
Physician note:: DW daughter Kim at bedside in ER who confirms resuscitation wishes as above
DNR Bracelet Application ONCE
01/30/24 16:30
Acetaminophen [Tylenol] 650 mg PO Q4HPRN PRN
01/30/24 16:30
UA Reflex to Culture [Urinalysis Reflex To Culture] Routine
Blood Culture Routine
TYRA Source: Blood/Venous
Specimen Description:
Activity As Directed
Activity Level: As Tolerated
Out of Bed- Chair
I&O [Intake/ Output] As Directed
Frequency: q12h
Sequential Compression Device [Pneumatic Compression Sleeves] As Directed
Type: Knee high
DX Deep Vein Thrombosis Video Routine
01/30/24 22:00
Amiodarone [Pacerone] 200 mg PO HS
Metoprolol Xl [Toprol Xl] 12.5 mg PO HS
01/31/24 06:00
Basic Metabolic Panel IN AM
CBC/No Diff [Complete Blood Count/No Diff] IN AM
01/31/24 08:00
clobetasol See Dose Instructions TOPICAL DAILY
01/31/24 10:00
CefTRIAXone [Rocephin] 1,000 mg IV Q24H
02/02/24 11:00
DC Protocol for Telemetry ONCE
Abnormal Lab Results
01/30/24 01/30/24
05:49 07:48
RBC 3.06 L 10^6/uL
(4.70-6.10)
Hgb 9.8 L g/dL
(13.0-18.0)
Hct 29.1 L %
(39.0-52.0)
MCV 95.1 H fL
(80.0-94.0)
MCH 32.0 H pg
(27.0-31.0)
RDW 16.8 H %
(11.5-14.5)
Absolute Lymphs (auto) 0.3 L 10^3/uL
(1.2-3.4)
Absolute Monos (auto) 1.1 H 10^3/uL
(0.1-0.6)
Neutrophils % 81.3 H %
(42.2-75.2)
Lymphocytes % 4.4 L %
(20.5-51.1)
Monocytes % 13.7 H %
(1.7-9.3)
Sodium 132 L mmol/L
(135-145)
Chloride 97 L mmol/L
(98-107)
BUN 48 H mg/dl
(9-20)
Creatinine 2.4 H mg/dL
(0.7-1.3)
Glucose 143 H mg/dl
(70-99)
Total Bilirubin 1.4 H mg/dl
(0.2-1.3)
Urine Ketones 1+ A
(Negative)
Ur Occult Blood Reflex 4+ A
(Negative)
Urine RBC >100 A /HPF
(0-2)
Urine Albumin (Reflex) 3+ A
(Neg - Trace)
01/30/24 05:49
07/08/24 05:49
Vital Signs
Initial and Last Documented VS:
Initial Vital Signs
Temp Pulse Resp BP Pulse Ox
36.5 C 83 19 126/80 96
01/30/24 05:16 01/30/24 05:16 01/30/24 05:16 01/30/24 05:16 01/30/24 05:16
Last Documented Vital Signs
Temp Pulse Resp BP Pulse Ox
36.4 C 85 17 79/47 95
01/30/24 14:56 01/30/24 16:00 01/30/24 16:00 01/30/24 16:00 01/30/24 16:00
Procedures
Urinary Catheter
Procedure completed by: Nato Thao MD
Type of urinary catheter: three way (CBI)
Catheter size (azerbaijani): 22
Urine description: frankly bloody and blood w/ clots
Urine output (ml): 500
MDM/Problems Addressed
Differential Diagnosis Includes:
Acute urinary retention
MDM/Problems Addressed:
89-year-old male presents to the emergency room for acute urinary retention in the setting of hematuria over the past 24 hours. Vital signs normal. Exam as above. Bladder is palpable. Bladder scan shows greater than 500 cc retained urine.
Initial attempts at placing a three-way Jones catheter were unsuccessful multiple tries by nurse. Case discussed with urology to assist with catheter placement. Will check labs including a CBC and a CMP. Will send a urinalysis when able to
provide sample.
Urology planning to come to bedside to help with catheter placement.
I tried once again to replace catheter at the bedside this time I was able to pass catheter beyond the prostate and drain bladder. Urine grossly bloody with large clots. Manually irrigated to pass larger clots and then CBI was initiated. Updated
urology they will still come to evaluate, recommending continue CBI and admit to the hospitalist. I did review initial labs and CBC significant for hemoglobin of 9.8 which is actually slightly higher than usual. His CMP shows a creatinine of 2.4
increased from a baseline of 1.6 likely postobstructive MARIZOL�IV fluids in progress. Will cover with IV Rocephin given instrumentation. Case discussed with hospitalist for admission.
Chronic conditions affecting care:
A-fib on Eliquis likely exacerbating hematuria
*Pulse Oximetry
Patient hypoxic: no
*EKG
Interpreted by ED Provider?: Yes
Heart Rate: 86
Rate: normal
Rhythm: a-fib
[place]: left axis deviation
Interval: normal interval
QRS Pattern: normal QRS
Ischemia: non-specific ST changes
*Critical Care Note
Total Time (30-74mins, 75-104mins- exclusive of procedures): Not Applicable
Data Reviewed
Source: patient and records
Patient Management
Discussion with other providers: Hospitalist (Discussed with hospitalist) and Echo Technologist (Discussed with urologist)
Escalation/DeEscalation of care consider admission/obs:
Admission indicated
ED Attending Note
-
Portions of this chart may have been created with voice recognition software.� Occasional wrong word or��sound alike� substitutions may have occurred due to the inherent limitations of voice recognition software.
Discharge Plan
Departure
Patient Disposition: Admit
Date of Disposition: 01/30/24
Time of Disposition: 10:09
Admit to doctor: Rohit
Presentation/result/management discussed w/ accepting MD/DO: Hospitalist
Discharge Problem:
Hematuria
Interventions
Interventions:
*Risk Screen - Suicide Last Done: 01/30/24 05:16
*General Assessment Last Done: 01/30/24 05:16
*Neglect/Abuse Screening Last Done: 01/30/24 05:16
ED- Fall Risk Assessment Last Done: 01/30/24 05:28
*ED COVID-19 Vaccine History Last Done: 01/30/24 05:28
*Nursing Disposition Last Done: 01/30/24 16:29
ED-Male Genitourinary Assessment Last Done: 01/30/24 05:28
Discharge Date and Time
Discharge Date/Time: 01/30/24 16:30
[2024-01-30 17:10] LABS: Magnesium 1.9 mg/dl (1.6-2.3)
[2024-01-30 17:14] LABS: INR 1.67; PT 19.5 Sec (11.4-14.6)
--- NOTE | 2024-01-30 17:43 | PTCARENOTE ---
Received pt @ change of shift. Pt. AAOx3, denies pain. Afib on montior, rate controlled. SBP's 90's w MAPs >65 s/p bolus' from ED. SpO2 95% on RA, auscultated dim breath sounds throughout. +BS, abd soft/nt/cachectic. [address] w CBI
running, urine bloody colored w clots. Unable to obtain UA @ this time d/t CBI infusing, urology to bedside aware. Pssoriasis on lower abd. #18 R FA patent, dressing c/d/i. # 20 R FA inserted; bloow work drawn and sent to lab. Dr. Chen obtain
consent for blood; type and cross sent to lab as well, awaiting results. Family/patient updated on plan of care. Instructed on how to report care concerns and call vaughn in reach.
--- NOTE | 2024-01-30 20:00 | PTCARENOTE ---
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
pink with clots, daughter at bedside, call vaughn in reach.
[2024-01-30] MEDS: TOPROL XL PO (21:08)
[2024-01-30] MEDS: PACERONE 200 MG PO (22:35)
--- NOTE | 2024-01-30 23:53 | PTCARENOTE ---
no changes from prior assessment, denies pain, call vaughn in reach.
[2024-01-31] VITALS (38 sets, daily range): BP systolic 68–123; BP diastolic 43–82
[2024-01-31 00:46] LABS: Hematocrit 26.8 % (39.0-52.0)
[2024-01-31 00:59] LABS: Hemoglobin 9.2 g/dL (13.0-18.0)
--- NOTE | 2024-01-31 02:08 | PTCARENOTE ---
CBI clotted off, manually flushed multiple times per order with many clots noted, pt tolerated irrigation, CBI continued, bright red blood with clots noted in 3 way tube and greenberg bag, call vaughn in reach.
[2024-01-31 04:21] LABS: Hematocrit 25.7 % (39.0-52.0); Hemoglobin 8.7 g/dL (13.0-18.0); Mean Corp Hgb Conc. 33.9 g/dL (33.0-37.0); Mean Corpuscular Hgb 31.6 pg (27.0-31.0); Mean Corpuscular Volume 93.5 fL (80.0-94.0); Mean Platelet Volume 9.6 fL (7.4-10.4); Platelet Count 135 10^3/uL (130-400); Red Blood Cell Count 2.75 10^6/uL (4.70-6.10); Red Cell Dist. Width 17.8 % (11.5-14.5); White Blood Cell Count 17.8 10^3/uL (4.8-10.8)
[2024-01-31] MEDS: NSS 250 IV (04:57)
[2024-01-31] MEDS: ProAmatine 5 MG PO ×3 (05:18→15:10)
[2024-01-31 05:25] LABS: Blood Urea Nitrogen 58 mg/dl (9-20); Calcium 8.3 mg/dl (8.4-10.2); Carbon Dioxide 20 mmol/L (22-30); Chloride 102 mmol/L (98-107); Estimated Creatinine Clearance 16 ml/min; Glucose 90 mg/dl (70-99); Sodium 133 mmol/L (135-145); eGFR 20.91
--- NOTE | 2024-01-31 07:12 | W.PN.INTV ---
Today's Communication / Plan
Recommendations
Doing well, no acute events ON, off pressors
Ongoing CBI per Urology
Abx continued
Otherwise, can likely transfer to floors, we will sign off upon transfer
Assessment
-
89-year-old male with history of prostate cancer status radiation complicated by bladder cystitis, bleeding and clots with recent hospital stay December 2023. Now presents with increased lower abdominal pain, hematuria. Admitted to ICU for
hypotension, anemia
Acute hypotension, hypovolemic shock
Radiation-induced hemorrhagic cystitis
Acute urinary retention w/ clot obstruction
Gross hematuria
Clots, clear down CBI
Lower abdominal discomfort, now resolved
Anemia, hemoglobin dropped to 7.4
Pending transfusion
Hyponatremia
Acute renal insufficiency, creatinine 2.4
Baseline 1.7
CKD stage IIIb
Hyperglycemia
Conditions present prior to admission
Prior urologic h/o prostate cancer s/p XRT ([facility])
s/p inpatient cystoscopy w/ Dr. Tobin (12/28/23) w/ sclerotic prostatic urethra and bladder neck with friable neovascularity c/w radiation changes
Bilateral interstitial changes per abdominal imaging
Mild bronchiectasis, right pleural effusion/thickening
Subpleural right middle lobe nodule
Chronic hypotension on midodrine PO
Hyperlipidemia
Chronic atrial fibrillation on anticoagulation
Multiple PVI in the past/Ablation in the past/Amiodarone+Eliquis therapy
History of NSVT s/p ICD
Severe mitral regurgitation
History of heart failure, normal EF
Severe pulm hypertension, PA pressure 65
History of paraesophageal hernia with gastric volvulus repair
History of GI bleed
DNR
Plan
At this time, patient is stable off pressors.
Hypotension noted, hemoglobin dropped to 7.4
Suspect hypotension is secondary to bleeding with a background of chronic hypotension recently started on midodrine therapy
Cardiac disease noted, severe pulm hypertension and valvular disease noted
Moving forward
Continue with supportive care
Gentle IV fluids. Assess post transfusion. 1 unit ordered by primary service
Midodrine has been given
Hopefully pressors can be avoided
Follow oxygen requirement carefully.
Chest x-ray with mild bilateral interstitial changes, suspected chronic
Antibiotics per primary service
Of note, patient remains on amiodarone therapy
Urology following for hematuria
Ongoing CBI noted
Reviewed with critical care nursing, family, primary service
Diagnostic Data
CXR 01/30/24- No acute disease of the chest. Mild cardiomegaly. Stable. Moderate elevation of the right hemidiaphragm. Progressed.
CT AP 12/26/23- No acute pathology of the abdomen or pelvis identified. Limited visualization of the distal right ureter. No evidence of obstructive uropathy.
Moderate fecal material throughout the colon. Mildly progressed. Nonobstructing left renal stone. 2 mm. New
Simple bilateral renal cysts. Stable
Small right pleural effusion. Stable
New right middle lobe pulmonary nodule.
ECHO 08/01/23-1. Left ventricle: Mild concentric left ventricular hypertrophy with preserved systolic function and estimated ejection fraction of 60-65%. No regional wall motion abnormalities.
2. Right ventricle: Normal
3. Atria: Severely dilated left atrium and severely dilated right atrium
4. Mitral valve: Moderate to severe mitral regurgitation
5. Aortic valve: Thickened and sclerotic with mild aortic insufficiency
6. Tricuspid valve: Moderate tricuspid regurgitation with severe pulmonary hypertension and estimated pulmonary artery systolic pressures of 65-70 mmHg
7. In comparison to the most recent transthoracic echocardiogram from 12/13/2022 and trends thoracic echocardiogram from 11/09/2022, there has been no significant change. Significant pulmonary hypertension was noted on prior studies. LVEF remains
normal.
-----
Critical Care time 31 mins -- The patient is admitted for acute critical illness for the treatment of vital organ failure and/or prevention of further life-threatening conditions. Total care includes time spent in review of history, physical exam,
medications, hemodynamic/ventilator parameters, laboratory data, imaging and discussion with house staff, pharmacy, respiratory therapy, airport manager, and nursing.
Subjective Dataa
Subjective Data
Date of Service:
Date of Service: January 31, 2024
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
Subjective:
doing well, no acute events ON
remains off pressors
CBI ongoing
Objective Data
Data Reviewed
Vital Signs / I&O / Oxygen:
Vital Signs
Temp Pulse Resp BP Pulse Ox
98.0 F 83 12 78/55 97
01/31/24 03:40 01/31/24 07:10 01/31/24 05:45 01/31/24 07:10 01/31/24 05:45
Intake and Output
01/30/24 01/31/24 02/01/24
06:59 06:59 06:59
Intake Total 370 / 370
Output Total 2400 / 2400
Balance -2029 / -2030
SaO2 97
Physical Exam
General: Comfortable and Other (NAD)
HEENT: Normocephalic, Anicteric and Moist Mucous Membranes
Cardiovascular: S1-S2 and Regular Rhythm
Respiratory: Clear and Non-Labored Respirations
GI: Soft, Non Distended and Non Tender
Neurology: Awake, Alert, Oriented, AO x 3 and No Motor Deficits
Skin: Warm, Dry and Good Color
Labs/Micro/Reports
Lab Data
01/31/24 03:57
01/31/24 03:57
Laboratory Results
01/30/24
16:52
PT 19.5 H
INR 1.67
APTT 36.0 H
--- NOTE | 2024-01-31 07:33 | PTCARENOTE ---
Received pt @ change of shift. AAOx3, denies pain. Essential hand tremors, baseline. Controlled afib on monitor. SBP 70's w a MAP of 59 while pt. asleep @ 0700. s/p cuff readjustment and pt. awake SBP 110's. Pt. denies
dizziness/lightheadedness. Standing Midodrine admin- see SEP. Spo2 96% on RA. + BS, abd soft/nt; cachectic/poor abdoul. [address] w bloody urine w clots; CBI infusing. # 18 and #20 R FA patent, dressing c/d/i. Call vaughn remains w in
reach.
--- NOTE | 2024-01-31 07:35 | W.PN.URO.CBU ---
Today's Communication / Plan
-
- Continue CBI today until urine clears and remains clot-free
- Hand irrigate q6hrs prn clot obstruction
- Trend H/H and Cr
- Consider CTAP w/o IV contrast if renal function does not improve
- pRBC transfusion per Hospitalist/ICU team
- HOLD Eliquis
- No indication for surgical intervention at this time (s/p inpatient cystoscopy 12/28/23 - radiation changes of prostate/bladder)
Urology following - please call w/ questions
D/w patient.
Assessment / Plan
-
Acute urinary retention w/ clot obstruction
H/o prostate cancer s/p XRT
MARIZOL on CKD III
Hgb stable (s/p PRBC transfusion o/n)
Cr 2.8 (from 2.4 on admission, elevated from baseline)
Diagnosis
-
Date of Service: January 31, 2024
-
Patient Diagnosis:
Radiation-induced hemorrhagic cystitis
Acute urinary retention w/ clot obstruction
H/o prostate cancer s/p XRT
MARIZOL on CKD III
12/27: s/p cystoscopy (inpatient w/ Dr. Tobin) => radiation changes to bladder, no active bleeding.
Subjective
-
Denies abdominal or suprapubic pain.
Jones catheter w/ light-punched colored urine w/o clots this AM.
CBI @moderate drip rate.
Objective
-
Vital Signs
Temp Pulse Resp BP Pulse Ox
98.4 F 79 20 78/55 96
01/31/24 07:53 01/31/24 07:15 01/31/24 07:15 01/31/24 07:10 01/31/24 07:28
Intake and Output
07/0801/31/24 02/01/24
06:59 06:59 06:59
Intake Total 370 / 370
Output Total 2400 / 2400
Balance -2029 /
Intake:
Oral fluids 120 / 120
Blood Product Amount Infused ( 250 / 250
mL)
Packed Rbc Leukoreduced Unit 250 / 250
[id number]
Output:
True Urine Output from CBI 2400 / 2400
Laboratory Results
01/31/24 03:57
01/31/24 03:57
Physical Exam
-
General - well developed, well nourished, no acute distress
Abdomen - soft, non-tender, non-distended, no suprapubic distention, bladder non-palpable
Genitalia - normal, 22Fr 3-way catheter w/ light punch-colored urine
Skin - warm & dry with no rash
Neuro - AOx3, no motor deficits
Extremities - no clubbing, no cyanosis, no edema
Care Review
Data Reviewed
Discussed with: Hospitalist
Total Time Spent with Patient (in minutes): 35
[2024-01-31] MEDS: VANCOCIN 300 ML IV (08:19)
[2024-01-31] MEDS: VANCOCIN 300 MG IV (08:19)
[2024-01-31] MEDS: STERILE WATER FOR INJECTION 10 ML IV (10:12)
[2024-01-31] MEDS: ROCEPHIN 1000 MG IV (10:13)
--- NOTE | 2024-01-31 10:42 | CON.ID ---
Consultation
-
Date/Time Consultation Requested: January 31, 2024 0757
Date/Time Consultation Performed: January 31, 2024 1042
Requesting Provider: Dr. Surinder Chen
Performing Provider: Dr. Ewelina Rios
Reason for Consultation: Bacteremia
Chief Complaint / Past History
Chief Complaint
Clots in urine
History of Present Illness
89-year-old male with permanent atrial fibrillation on Eliquis, history of ICD, CKD 3, remote history of prostate cancer status post radiation, radiation induced hemorrhagic cystitis last cystoscopy in December 2023 who presented to the hospital January 29
due to acute onset of gross hematuria with significant clots. He had difficulty urination with suprapubic pain. Positive chills en route to the hospital. No fevers. no dysuria or flank pain white count was 17.8. He was in MARIZOL. Three-way Jones
placed for CBI. Admission blood cultures x 2 GPC in chains. He feels better today.
Past History
Additional Past Medical History:
Permanent atrial fibrillation on Eliquis
CKD 3
Severe mitral regurgitation
Cardiomyopathy s/p ICD placement
Essential tremor
Prostate cancer status post XRT
Radiation induced hemorrhagic cystitis
Right hip replacement
Paraesophageal hernia and gastric volvulus repair
Allergy History:
shellfish derived Allergy (Verified 12/26/23 14:27)
Nausea
Medications Reviewed: Yes
Current Antibiotics:
Vancomycin
Ceftriaxone
Social History
Tobacco: Non-Smoker
Alcohol: None
Drug: None
Living: Alone
Family History
Family History: Not Pertinent
Review of Systems
Review of Systems
General: Chills and Change in Appetite; Negative Fever
HEENT: Negative Sinus Problems or Headache
Cardiovascular: Negative Chest Pain or Dyspnea
Respiratory: Negative Dyspnea or Cough
Gasteroenterology: Other (no diarrhea); Negative Nausea or Vomiting
Genital / Urological: Hematuria; Negative Flank Pain
Endocrine: Weakness
Neurological: Negative Headache or Dizziness
All systems: All other systems were reviewed and were negative
Vital Signs
Temp Pulse Resp BP Pulse Ox
98.4 F 84 17 108/80 94
01/31/24 07:53 01/31/24 09:30 01/31/24 09:30 01/31/24 09:00 01/31/24 08:00
Physical Exam
Physical Exam
Constitutional: No Acute Distress
Eyes: No Conjunctival Hemorrhage and Sclera Anicteric
Cardiovascular: Irregular Rate and S1/S2
Pulmonary: Clear
Gastrointestinal: Soft, Non Tender, Non Distended and Normal Bowel Sounds
Genito-Urinary: Jones and Hematuria; Negative CVA Tenderness
Extremities: Negative Edema
Neurological: AO x 3
Lab / Diagnostic Study Results
01/31/24 03:57
01/31/24 03:57
Abs Immat Gran (auto) 0.0 10^3/uL (0-0.05) 01/30/24 05:49
Absolute Neuts (auto) 6.3 10^3/uL (1.4-6.5) 01/30/24 05:49
Absolute Lymphs (auto) 0.3 10^3/uL (1.2-3.4) L 01/30/24 05:49
Absolute Monos (auto) 1.1 10^3/uL (0.1-0.6) H 01/30/24 05:49
Absolute Basos (auto) 0.0 10^3/uL (0-0.2) 01/30/24 05:49
Immature Gran % 0.3 % (0-0.5) 01/30/24 05:49
Neutrophils % 81.3 % (42.2-75.2) H 01/30/24 05:49
Lymphocytes % 4.4 % (20.5-51.1) L 01/30/24 05:49
Monocytes % 13.7 % (1.7-9.3) H 01/30/24 05:49
Eosinophils % 0.0 % (0-6) 01/30/24 05:49
Basophils % 0.3 % (0-2) 01/30/24 05:49
PT 19.5 Sec (11.4-14.6) H 01/30/24 16:52
INR 1.67 01/30/24 16:52
Ur Squamous Epith Cells 0-2 /LPF (Few) 01/30/24 07:48
Microbiology Results
Micro:
01/30/24 16:52 Blood Culture - Preliminary
Blood/Venous Positive culture in progress
Gram Stain - Final
01/30/24 16:57 Blood Culture - Preliminary
Blood/Venous Positive culture in progress
Gram Stain - Preliminary
01/30/24 CXR: No acute disease of the chest.
Assessment / Plan
# GPC bacteremia due to bladder outlet obstruction from clot retention
# Recurrent radiation hemorrhagic cystitis
# MARIZOL on CKD3
# Leukocytosis
# hypotension
# blood loss anemia
- Repeat 1 set of blood cx in am (due to critical bcx bottle shortage)
-Suspect Enterococcus, less likely Strep
- Replace ceftriaxone with [id number] IV q8h, renally dosed.
- Continue empiric Vancomycin for now pending culture data.
- Follow wbc.
#Conditions prior to admission
Permanent atrial fibrillation on Eliquis
CKD 3
Severe mitral regurgitation
Cardiomyopathy s/p ICD placement
Essential tremor
Prostate cancer status post XRT
Radiation induced hemorrhagic cystitis
Right hip replacement
Paraesophageal hernia and gastric volvulus repair
--- NOTE | 2024-01-31 12:00 | PTCARENOTE ---
Both sets of blood cx from yesterday resulted (+). Dr. Chen made aware and further orders for ID manager of data. ID MD to bedside, IV abx adjusted and plan for another blood cx draw in AM tomorrow. Inquired to MD team about next hgb draw; plan for tomorrow
in AM as well. CBI remains infusing; punch colored/ no clots; rate slowed. Pt.'s daughter, Kim, updated via phone. Family @ bedside this afternoon. Pt. repositioned per protocol and call roderick remains w in reach.
--- NOTE | 2024-01-31 13:04 | PHA.VAN.IN ---
Assessment
- Assessment
Renal Function: Appears elevated from baseline (SCR 2.8 vs 1.3-1.8 in 2023)
Concomitant Antimicrobials: ampicillin
Plan
- Plan
Initial / Loading Dose: 1500mg - 01/30 08:19
Maintenance Regimen: dosing by level
Monitoring: random 01/31 06
Pharmacokinetics Vancomycin I
- -
Patient Age: 89
Patient Sex: Male
Vancomycin Day #: 1
Indication: Bacteremia
Requesting Provider: Dr. Chen / Gabriel
Pertinent Antimicrobial Allergies:
no pertinent antibiotic allergies
Height / Weight:
Height 5 ft 10 in
Actual Weight 63.2 kg
Pertinent Past Medical History: CKD 3
- Vital Signs / Lab Results
Temp Pulse Resp BP Pulse Ox
98.1 F 84 17 108/80 94
01/31/24 11:50 01/31/24 09:30 01/31/24 09:30 01/31/24 09:00 01/31/24 08:00
Lab Results - Hematology
01/30/24 01/31/24
05:49 03:57
WBC 7.7 17.8 H
Lab Results - Chemistry
01/30/24 01/31/24
05:49 03:57
BUN 48 H 58 H
Creatinine 2.4 H 2.8 H
Estimated Creat Clear 19 16
Albumin 3.8
Lab Results - Urine
01/30/24
07:48
Urine Nitrite (Reflex) Negative
Leukocyte Esterase Rfl Negative
Urine WBC (Reflex) 6-10
Ur Squamous Epith Cells 0-2
Microbiology Results
01/30/24 16:57 Blood Culture - Preliminary
Blood/Venous Positive culture in progress
Gram Stain - Final
01/30/24 16:52 Blood Culture - Preliminary
Blood/Venous Positive culture in progress
Gram Stain - Final
[2024-01-31] MEDS: AMPICILLIN 108 MG IV ×2 (13:52→21:55)
--- NOTE | 2024-01-31 15:35 | W.PN.HOSP.TC ---
Addendum entered and electronically signed by Surinder Chen MD 01/31/24 18:35:
I saw and evaluated the patient. I reviewed the resident�s note and agree with findings and plan as documented in the resident�s note.
Pt feels better.
No further fevers.
No abdo pain.Tolerating diet.
No dizziness , SOB or CP.
HH stable. HD improved ;not need vasopressors.
BCX noted to be positive.
Add Vancomycin and consult ID.
DW ID later - CTX switched to Ampiciilin.
Left message to daughter.
Transfer to IMU.
Total time of care 35 min
Original Note:
Today's Communication/Plan
-
Repeat 1 set of blood cultures tomorrow morning. Possible organism is Enterococcus. IV ampicillin and vancomycin currently given. Follow white blood cell count.
Assessment / Plan
Assessment / Plan
- Acute hematuria with clot retention:
Continuous bladder irrigation
-Acute urinary retention with clot obstruction:
Continuous bladder irrigation
- UTI:
Likely due to bladder outlet obstruction from clots.
Infectious disease suspects Enterococcus
Patient started on ampicillin and vancomycin
Recheck white blood cell count and urine analysis
-MARIZOL on CKD stage III:
Possibly due to acute urinary retention from clot obstruction
Continue to monitor BUN and creatinine
-History of prostate cancer status post XRT:
CODE: DNR
Anticipated Discharge: 24 - 48 hours
Subjective/Interval History
-
Date of Service: January 31, 2024
Met with patient at the bedside. Overall, he is doing well and offers no complaints. 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
Objective Data
-
Labs:
Laboratory Results
01/31/24
03:57
WBC 17.8 H
Hgb 8.7 L
Hct 25.7 L
Plt Count 135
Sodium 133 L
Potassium 5.0
Chloride 102
Carbon Dioxide 20 L
BUN 58 H
Creatinine 2.8 H
Glucose 90
Calcium 8.3 L
Vital Signs:
Vital Signs
Temp Pulse Resp BP Pulse Ox
98.1 F 81 23 102/53 96
01/31/24 11:50 01/31/24 15:12 01/31/24 15:12 01/31/24 15:12 01/31/24 14:00
I&O
01/30/24 01/31/24 02/01/24
06:59 06:59 06:59
Intake Total 370 / 370
Output Total 2400 / 2400
Balance -2029 / -2030
Review of Systems
-
History Source: Patient
All other systems: Reviewed and negative
Constitutional: Reports No Symptoms
EENT: Reports No Symptoms Reported
Respiratory: Reports No Symptoms
Abdomen/GI: Reports No Symptoms
Breast: Reports No Symptoms
Genitourinary: Reports No Symptoms
Musculoskeletal: Reports No Symptoms
Skin: Reports No Symptoms
Neuro: Reports No Symptoms
Endocrine: Reports No Symptoms
Hematologic / Lymphatic: Reports No Symptoms
Physical Exam
-
General: Well Developed, Well Nourished and No Apparent Distress
HEENT: Normocephalic, Atraumatic and Moist Mucous Membranes
Respiratory: Clear to Auscultation
Breast: Deferred by me
GI: Soft, Nontender, Nondistended and Normal Bowel Sounds
Rectal: Deferred by Provider
Genito-urinary: Deferred by me
Musculoskeletal: No Clubbing, No Cyanosis and No Edema
Skin: Warm and Dry
Neuro: Nonfocal/Grossly Intact
--- NOTE | 2024-01-31 15:44 | PTCARENOTE ---
CBI clotted off s/p rate decrease. Manually irrigated and profuse amt of clots evacuated to restore CBI flow. Urine red/punch colored w clots s/p irrigation. Rate of CBI increased to prevent further clotting. Frequent chase care given and pt.
repositioned per orders. Call vaughn in reach.
[2024-01-31] MEDS: TOPROL XL PO (22:04)
[2024-01-31] MEDS: PACERONE 200 MG PO (22:04)
[2024-02-01] VITALS (13 sets, daily range): BP systolic 86–119; BP diastolic 54–93; BMI 19.5
[2024-02-01] MEDS: ProAmatine 5 MG PO ×3 (00:01→17:11)
--- NOTE | 2024-02-01 04:02 | PTCARENOTE ---
Around 0230, patient's CBI clotted off. Hand irrigation performed with success. A large amount of clots removed, followed by punch colored urine. Patient washed and repositioned. After turning for bed bath, CBI noted to be clotted off again. Hand
irrigation attempted from around 0300 until 0345 by multiple RNs. CBI remains clotted off. Urology contacted by [facility]. Per urology, replace catheter with a 24Fr 3way catheter and then hand irrigate before connecting back to CBI.
[2024-02-01 04:35] LABS: Hematocrit 24.2 % (39.0-52.0); Hemoglobin 8.2 g/dL (13.0-18.0); Mean Corp Hgb Conc. 33.9 g/dL (33.0-37.0); Mean Corpuscular Hgb 32.8 pg (27.0-31.0); Mean Corpuscular Volume 96.8 fL (80.0-94.0); Mean Platelet Volume 9.4 fL (7.4-10.4); Platelet Count 115 10^3/uL (130-400); Red Cell Dist. Width 17.7 % (11.5-14.5); White Blood Cell Count 12.6 10^3/uL (4.8-10.8)
[2024-02-01] MEDS: LIDOCAINE URO-JET 2% 1 SYRINGE TOPICAL (04:50)
--- NOTE | 2024-02-01 05:00 | PTCARENOTE ---
24[address] greenberg catheter placed. CBI running wide open. Blood tinged output.
[2024-02-01 05:03] LABS: Blood Urea Nitrogen 58 mg/dl (9-20); Calcium 8.4 mg/dl (8.4-10.2); Carbon Dioxide 26 mmol/L (22-30); Chloride 102 mmol/L (98-107); Estimated Creatinine Clearance 16 ml/min; Glucose 95 mg/dl (70-99); Potassium 4.6 mmol/L (3.5-5.1); Sodium 134 mmol/L (135-145); eGFR 21.84
[2024-02-01 05:08] LABS: Vancomycin Random 11.5 ug/ml
[2024-02-01] MEDS: AMPICILLIN 108 MG IV ×3 (05:47→22:21)
--- NOTE | 2024-02-01 07:19 | W.PN.URO.CBU ---
Addendum entered and electronically signed by Eliezer Rogers MD 02/01/24 07:26:
BCx x2 => prelim GPCs
On IV Ampicillin and Vancomyin per ID for bacteremia
Original Note:
Today's Communication / Plan
-
Continue CBI to keep urine clear and clot-free - wean as tolerated through day
Clamp trial tomorrow AM
Hold Eliquis
Trend H/H and Cr - slight improvement in renal function
Assessment / Plan
-
Acute urinary retention w/ clot obstruction
Radiation cystitis
H/o prostate cancer s/p XRT
MARIZOL on CKD III
Hgb 8.2 (slight drift from 8.7)
Cr 2.7 (2.7 <= 2.8 <= 2.4)
Diagnosis
-
Date of Service: February 01, 2024
-
Patient Diagnosis:
Post Op Day:
Patient Diagnosis:
Radiation-induced hemorrhagic cystitis
Acute urinary retention w/ clot obstruction
H/o prostate cancer s/p XRT
MARIZOL on CKD III
12/27: s/p cystoscopy (inpatient w/ Dr. Tobin) => radiation changes to bladder, no active bleeding.
Subjective
-
Urine largely pink o/n.
Obstruction @0200/0300 this AM requiring catheter exchange.
Hand-irrigated w/ return of clots.
Urine draining clear since exchange.
Sleeping comfortably.
Objective
-
Vital Signs
Temp Pulse Resp BP Pulse Ox
98.5 F 75 12 86/54 100
02/01/24 03:11 02/01/24 06:00 02/01/24 06:00 02/01/24 06:00 02/01/24 06:00
Intake and Output
01/31/24 02/01/24 02/02/24
06:59 06:59 06:59
Intake Total 370 / 370 456 / 456
Output Total 2400 / 2400 3450 / 3450
Balance -2030 / -2030 -2994 / -2994
Intake:
Oral fluids 120 / 120 240 / 240
IV piggybacks 216 / 216
Blood Product Amount Infused ( 250 / 250
mL)
Packed Rbc Leukoreduced Unit 250 / 250
[id number]
Output:
True Urine Output from CBI 2400 / 2400 3450 / 3450
True urine output from hand 0 / 0
irrigation
Laboratory Results
02/01/24 04:23
02/01/24 04:23
Physical Exam
-
General - well developed, well nourished, no acute distress
Abdomen - soft, non-tender, non-distended, no suprapubic distention (non-palpable bladder)
Genitalia - normal, 24Fr 3-way draining clear UOP on medium rate CBI
Skin - warm & dry with no rash
Neuro - AOx3, no motor deficits
Extremities - no clubbing, no cyanosis, no edema
Counseling
-
D/w patient.
D/w RN.
Care Review
Data Reviewed
Discussed with: Hospitalist and Nursing
--- NOTE | 2024-02-01 08:00 | PTCARENOTE ---
received pt comfortable with no distress, CBI running wide with clear output, pt reports no pain, Foreskin is edematous urology made aware, daughter Kim was switched to the primary, otherwise see flowsheet
--- NOTE | 2024-02-01 09:20 | W.PN.ID1 ---
Date of Service
Date of Service: February 01, 2024
Today's Communication
- continue ampicillin 2g IV q8h, renally dosed.
- Continue empiric Vancomycin for now pending sensitivities
- may consider TTE pending duration of bacteremia
Assessment / Plan
# GPC bacteremia due to bladder outlet obstruction from clot retention
# Recurrent radiation hemorrhagic cystitis
# MARIZOL on CKD3
# Leukocytosis
# hypotension
# blood loss anemia
- Repeat 1 set of blood cx today (due to critical bcx bottle shortage) - in progress
- urine culture did not reflex, at this point very low yield post CBI, agree that initial source of bacteremia was likely urine
- continue ampicillin 2g IV q8h, renally dosed.
- Continue empiric Vancomycin for now pending sensitivities
- may consider TTE pending duration of bacteremia
- Follow wbc.
#Conditions prior to admission
Permanent atrial fibrillation on Eliquis
CKD 3
Severe mitral regurgitation
Cardiomyopathy s/p ICD placement
Essential tremor
Prostate cancer status post XRT
Radiation induced hemorrhagic cystitis
Right hip replacement
Paraesophageal hernia and gastric volvulus repair
Chief Complaint
-: UTI and Bacteremia
Subjective / Review of Systems
afebrile
bp hypotensive not currently requiring pressors
HR 90s
wbc now 12
plt declining
cr 2.7 today - baseline 1.7
a lactic acid is pending
vanc this AM 11.5
renal US: no obstruction
CXR: no acute disease
foreskin swollen - nonreducible - notified urology
Vital Signs / Physical Exam
Vital Signs
Vital Signs
Temp Pulse Resp BP Pulse Ox
97.5 F 90 12 87/61 100
02/01/24 07:34 02/01/24 08:11 02/01/24 06:00 02/01/24 08:11 02/01/24 06:00
Physical Exam
Constitutional: No Acute Distress
Cardiovascular: Regular Rate and S1/S2; Negative Murmur or Rub
Pulmonary: Clear and Symmetric; Negative Wheezes or Rales
Gastrointestinal: Soft, Non Tender, Non Distended and Normal Bowel Sounds
Genito-Urinary: Clear Urine and Other (foreskin swollen - nonreducible)
Skin: Warm and Dry; Negative Rash or Jaundice
Objective Data
Lab Data
Lab Results
02/01/24 04:23
02/01/24 04:23
PT 19.5 Sec (11.4-14.6) H 01/30/24 16:52
INR 1.67 01/30/24 16:52
APTT 36.0 Sec (23.4-35.0) H 01/30/24 16:52
Estimated Creat Clear 16 ml/min 02/01/24 04:23
Total Bilirubin 1.4 mg/dl (0.2-1.3) H 01/30/24 05:49
AST 40 U/L (17-59) 01/30/24 05:49
ALT 28 U/L (0-50) 01/30/24 05:49
Alkaline Phosphatase 103 U/L (38-126) 01/30/24 05:49
Most recent labs reviewed.
Micro Results:
02/01/24 04:23 Blood Culture - Pending
Blood/Venous
01/30/24 16:57 Blood Culture - Preliminary
Blood/Venous Positive culture in progress
Gram Stain - Final
01/30/24 16:52 Blood Culture - Preliminary
Blood/Venous Positive culture in progress
Gram Stain - Final
--- NOTE | 2024-02-01 09:26 | PHA.VAN.FU ---
Vancomycin Assessment / Plan
- Assessment
Renal Function: Stable
WBC's are: Trending Down
In the past 24 hrs, patient has been: Afebrile
Concomitant Antimicrobials: ampicillin
- Assessment - Therapeutic Drug Monitoring
Random Level: 11.5 - drawn ~20H after 1500mg loading dose
- Dosing Plan
Dosing by Level: Re-dose today (Vanc 750mg)
- Monitoring Plan
Random Level: 02/01 0600
- Follow Up
Pharmacy will continue to follow.
Vancomycin Follow UP
- -
Patient Age: 89
Patient Sex: Male
Vancomycin Day #: 2
Indication: Bacteremia
Requesting Provider: Dr. Chen / Gabriel
Pertinent Antimicrobial Allergies:
no pertinent antibiotic allergies
Height / Weight:
Height 5 ft 10 in
Actual Weight 61.6 kg
Pertinent Past Medical History: CKD 3
- Vital Signs / Lab Results
Temp Pulse Resp BP Pulse Ox
97.5 F 90 12 87/61 100
02/01/24 07:34 02/01/24 08:11 02/01/24 06:00 02/01/24 08:11 02/01/24 06:00
Lab Results - Hematology
01/30/24 01/31/24 02/01/24
05:49 03:57 04:23
WBC 7.7 17.8 H 12.6 H
Lab Results - Chemistry
01/30/24 01/31/24 02/01/24
05:49 03:57 04:23
BUN 48 H 58 H 58 H
Creatinine 2.4 H 2.8 H 2.7 H
Estimated Creat Clear 19 16 16
Albumin 3.8
Microbiology Results
01/30/24 16:57 Blood Culture - Preliminary
Blood/Venous Positive culture in progress
Gram Stain - Final
01/30/24 16:52 Blood Culture - Preliminary
Blood/Venous Positive culture in progress
Gram Stain - Final
Therapeutic Drug Monitoring
Random Vancomycin 11.5 ug/ml 02/01/24 04:23
--- NOTE | 2024-02-01 10:21 | PN.CDI ---
CDI
- -
CDI:
Physician Documentation Request
Admit Date: 01/30/24 13:40
Dear Doctor Gustavo,
Please review the following and provide your response in the progress notes.
Clinical Indicators:
Height: 5 ft 10 in
Weight: 135 lb 12
BMI: 19.5
If possible, please provide an associated diagnosis related to the abnormal BMI, such as:
BMI < or = to 19
Underweight
Cachectic
- Other
Use of terms such as suspected, likely, concern for, or probable (associated with a specific diagnosis that is being evaluated, monitored, or treated as if it exists) are acceptable and can be coded in the inpatient setting, when documented at the
time of discharge.
Thank you,
Emmie Isaac RN
CDI Specialist
[place] Text
Please use your independent medical judgment in providing your response.
--- NOTE | 2024-02-01 10:25 | PN.CDI ---
CDI
- -
CDI:
Physician Documentation Request
Admit Date: 01/30/24 13:40
Dear Doctor Gustavo,
Please review the following and provide your response in the progress notes.
Clinical Indicators:
Pt admitted with Acute urinary retention w/ clot obstruction Radiation cystitis/MARIZOL on CKD 3/ UTI
Documented per urology HX of CHF in consult
Documented per H&P, ' Hold Lasix for today...'/ Pt is on 40 mg of Lasix PO per home meds
Documented per past visit Cardiology consult 12/29/23, ' history of chronic heart failure with preserved ejection fraction...Chronic HFpEF....Echo 08/01/23: EF 60 to 65%...'
Please provide further specificity regarding the most likely type of the documented CHF:
Chronic HFpEF
Chronic HFrEF
Other (please specify)
Use of terms such as suspected, likely, concern for, or probable (associated with a specific diagnosis that is being evaluated, monitored, or treated as if it exists) are acceptable and can be coded in the inpatient setting, when documented at the
time of discharge.
Thank you,
Emmie Isaac RN
CDI Specialist
[place] Text
Please use your independent medical judgment in providing your response.
--- NOTE | 2024-02-01 10:35 | PN.CDI ---
CDI
- -
CDI:
Physician Documentation Request
Admit Date: 01/30/24 13:40
Dear Doctor Gustavo,
Please review the following and provide your response in the progress notes.
Clinical Indicators:
Pt admitted with Acute urinary retention w/ clot obstruction Radiation cystitis/MARIZOL on CKD 3/ UTI
There is potentially conflicting documentation in the record regarding the type of atrial fib.
Documented per H&P, ' Permanent Atrial Fibrillation... Impression/Plan...Paroxysmal atrial [id number]. Continue amiodarone. Hold Eliquis today with bleeding....'
ID consult, ' permanent atrial fibrillation on Eliquis...'
Documented per past visit 12/29/23 Cardiology consult, ' Permanent Afib ....-Cont amiodarone 200 mg HS for h/o permanent Afib for rate control and also for h/o sustained VT....'
If possible, please provide further specificity regarding atrial fibrillation, such as:
Permanent atrial fibrillation - when a decision has been made to accept the presence of AF and there is no further attempt to restore or maintain sinus rhythm
Paroxysmal atrial fibrillation - terminates spontaneously or with intervention within 7 days of onset
Other - please specify
Use of terms such as suspected, likely, concern for, or probable (associated with a specific diagnosis that is being evaluated, monitored, or treated as if it exists) are acceptable and can be coded in the inpatient setting, when documented at the
time of discharge.
Thank you,
Emmie Isaac RN
CDI Specialist
[place] Text
Please use your independent medical judgment in providing your response.
--- NOTE | 2024-02-01 10:44 | PN.CDI ---
CDI
- -
CDI:
Physician Documentation Request
Admit Date: 01/30/24 13:40
Dear Doctor Gustavo,
Please review the following and provide your response in the progress notes.
Clinical Indicators:
Pt admitted with Acute urinary retention w/ clot obstruction Radiation cystitis/MARIZOL on CKD 3/ UTI
Documented per ED, ' Urine description: frankly bloody and blood w/ clots...CBC significant for hemoglobin of 9.8 ...'
[facility] note consult &01/30, ' Acute hypotension Suspected secondary to bleeding, anemia Anemia, hemoglobin dropped to 7.4...Pending transfusion...'
ID consult,' # blood loss anemia..'
Trended Hemoglobin/Hematocrits below/Pt did get 1 units PRBC transfusion
Laboratory Tests
01/30/24 01/30/24 01/31/24
05:49 15:19 00:14
Hgb 9.8 L 7.4 L D 9.2 L D
Hct 29.1 L 21.7 L 26.8 L
01/31/24 02/01/24
03:57 04:23
Hgb 8.7 L 8.2 L
Hct 25.7 L 24.2 L
Based on the above, could you clarify, in your progress note, which of the following is the most likely type of anemia you are evaluating, monitoring and/or treating?
Acute blood loss anemia
Acute blood loss anemia with baseline chronic anemia (Specify type)
Other
Use of terms such as suspected, likely, concern for, or probable (associated with a specific diagnosis that is being evaluated, monitored, or treated as if it exists) are acceptable and can be coded in the inpatient setting, when documented at the
time of discharge.
Thank you,
Emmie Isaac RN
CDI Specialist
[place] Text
Please use your independent medical judgment in providing your response.
--- NOTE | 2024-02-01 10:58 | PN.CDI ---
CDI
- -
CDI:
Physician Documentation Request
Admit Date: 01/30/24 13:40
Dear Doctor Gustavo,
Please review the following and provide your response in the progress notes.
Clinical Indicators:
Height: 5 ft 10 in
Weight: 135 lb 12
BMI: 19.5
Other Clinical Notes: [facility] note 01/30 @ 0733, ' cachectic/poor abdoul.'
If possible, please provide an associated diagnosis related to the abnormal BMI, such as:
BMI < or = to 19
Underweight
Cachectic
- Other
Use of terms such as suspected, likely, concern for, or probable (associated with a specific diagnosis that is being evaluated, monitored, or treated as if it exists) are acceptable and can be coded in the inpatient setting, when documented at the
time of discharge.
Thank you,
Emmie Isaac RN
CDI Specialist
[place] Text
Please use your independent medical judgment in providing your response.
[2024-02-01 11:04] LABS: Cortisol, Random 20.4 ug/dl; TSH 2.08 uIU/ml (0.47-4.68)
[2024-02-01 11:22] LABS: Lactic Acid 1.6 mmol/L (0.7-2.0)
[2024-02-01] MEDS: VANCOCIN 150 IV (11:53)
--- NOTE | 2024-02-01 12:00 | PTCARENOTE ---
system reviewed, clobetasol for scalp added to the MAR, pt tolerated oob to chair pt/ot consult order obtained, urology intervened on edematous foreskin, pt reports no pain
--- NOTE | 2024-02-01 13:02 | CM ---
CM following re: discharge planning.
reviewed pt's chart, met with pt and spoke to pt's daughter Kim over the phone.
Pt is an 89 year old male, admitted with primary dx of hematuria.
Pt reports he was born and grew up in [place], immigrated to [place] [facility] [place] [facility] years ago and resided with family in [facility] [place] [facility]. Pt reports he used to live alone in a split level house, 1 step up and 6 steps down, has 2 supportive daughter Kim
9lives in [place], SHIP MANAGER) and [facility](lives in [place]) and a son who lives in [place] [place]. Pt reports he ambulates with a walker at baseline, went to [facility] 2 times, last time last month. Pt stated he was at [facility] for a week, did not
like there, went to stay for 1.5 weeks to [facility] Kim house in [place] and was staying at [facility] in [place] [id number]. Pt reports he is current with Teresita LOFTON. Pt expressed his desire to return back to
[facility] with Teresita LOFTON and family support. Pt declined any SNF as an option.
CM spoke to pt's daughter Kim and she confirmed that pt will return back to his daughter [facility] with Teresita . Pt's daughter stated that pt has SHIP MANAGER from [facility] who visits the pt often. Pt's daughter stated that pt did serve [employer] but
not in [facility], in . Pt's daughter asked for information to apply for Medicaid and to apply for community based services. [employer] [place] phone number provided and a process of applying for Medicaid and community based services
explained.
PCP: [facility]
Pharmacy: [facility].
D/C plan; home to daughter's [facility] with Teresita LOFTON, family support anr to follow up with [employer] Director aileen JUAREZ for community based services.
CM will follow with discharge plan updates as hospitalization progresses
[2024-02-01] MEDS: NON-FORMULARY ITEM 1 APPLIC TOPICAL (14:16)
--- NOTE | 2024-02-01 14:16 | W.PN.HOSP.TC ---
Addendum entered and electronically signed by Surinder Chen MD 02/15/24 17:35:
Buttocks stage 1 pressure injury ...silicone border foam placed.
Addendum entered and electronically signed by Surinder Chen MD 02/15/24 17:35:
BMI: 19.5 suggestive of underweight.
Afib is permanent
Chronic HFpEF is stable.
Anemia is acute blood loss anemia on chronic anemia of unclear etiology
Addendum entered and electronically signed by Surinder Chen MD 02/01/24 15:10:
I saw and evaluated the patient. I reviewed the resident�s note and agree with findings and plan as documented in the resident�s note.
Total time spent on today's encounter was 52 minutes which included time spent in counseling the patient/family regarding diagnosis and treatment plan as listed above, goals of care, and symptom management. Case was discussed with nursing staff,
specialists, and care coordinators/case management. All labs and imaging personally reviewed by me. Remainder the time spent in detailed review of previous records, lab data, imaging, and other medical provider documentation.
Original Note:
Documented by User: Itzel Boykin MD, Resident 02/01/24 14:53
Today's Communication/Plan
-
Continuous bladder irrigation is still ongoing. We will continue with the bladder irrigation until there is no more hematuria. Continue current antibiotics. We will transfer the patient to the IMU.
Assessment / Plan
Assessment / Plan
- Acute hematuria with clot retention: - Improving
Continuous bladder irrigation
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
Over the evening the catheter became obstructed with clots multiple times. After Jones changed to 24FR 3-way catheter it was clear. No blood in catheter bag seen this morning.
-Acute urinary retention with clot obstruction: - Improving
Continuous bladder irrigation
Over the evening the catheter became obstructed with clots multiple times. After Jones changed to 24FR 3-way catheter it was clear. No blood in catheter bag seen this morning.
- Acute Blood Loss Anemia: Hematuria - Improving
Blood transfusion given.
Continue to follow labs and assess whether another transfusion is indicated. If indicated, will need further follow-up for other sources of blood loss.
- Persistent Atrial Fibrillation: - Stable
Patient is ICD status.
EKG continues to show atrial fibrillation that is persistent regardless of medication.
Monitoring patient on telemetry.
- Chronic HFpEF: - Stable
Cardiology consult on 12/29/2023 states that the patient has a history of chronic heart failure with preserved ejection fraction. An echo on 08/01/2023 shows an ejection fraction of 60 to 65%
Monitoring patient on telemetry.
Continue home cardiac medications.
- UTI: -Stable
Likely due to bladder outlet obstruction from clots.
Infectious disease suspects Enterococcus
Patient started on ampicillin and vancomycin
Recheck white blood cell count and urine analysis
-MARIZOL on CKD stage III: Stable and Monitoring
Possibly due to acute urinary retention from clot obstruction
Continue to monitor BUN and creatinine. BUN is stable at 58 and creatinine is stable as well at 2.7
- History of prostate cancer status post XRT:
Advised to continue following a urologist outpatient.
- Borderline Underweight: - Stable
Patient has a BMI that has fluctuated around 19.5. His fluctuations in BMI put him approximately in the category of being borderline underweight.
Current nutrition goals have been met and dietary continues to follow the patient.
CODE: DNR
Anticipated Discharge: 24 - 48 hours
Subjective/Interval History
-
Date of Service: February 01, 2024
Met with patient at the bedside. Overall, he states that he is doing well and offers no complaints at the present time. He was happy to share stories of his past and the time that he was in the service.
Objective Data
-
Labs:
Laboratory Results
02/01/24
04:23
WBC 12.6 H
Hgb 8.2 L
Hct 24.2 L
Plt Count 115 L
Sodium 134 L
Potassium 4.6
Chloride 102
Carbon Dioxide 26
BUN 58 H
Creatinine 2.7 H
Glucose 95
Calcium 8.4
Vital Signs:
Vital Signs
Temp Pulse Resp BP Pulse Ox
97.7 F 91 14 118/75 97
02/01/24 11:07 02/01/24 10:00 02/01/24 10:00 02/01/24 10:00 02/01/24 10:46
I&O
01/31/24 02/01/24 02/02/24
06:59 06:59 06:59
Intake Total 370 / 370 456 / 456 240 / 240
Output Total 2400 / 2400 3450 / 3450 825 / 825
Balance -2030 / -2030 -2994 / -2994 -585 / -585
Review of Systems
-
History Source: Patient
Constitutional: Reports No Symptoms
EENT: Reports No Symptoms Reported
Respiratory: Reports No Symptoms
Cardiac: Reports No Symptoms
Abdomen/GI: Reports No Symptoms
Breast: Reports No Symptoms
Genitourinary: Reports No Symptoms
Musculoskeletal: Reports No Symptoms
Skin: Reports No Symptoms
Neuro: Reports No Symptoms
Endocrine: Reports No Symptoms
Hematologic / Lymphatic: Reports No Symptoms
Allergy / Immunology: Reports No Symptoms
Physical Exam
-
General: Well Developed, Well Nourished and No Apparent Distress
HEENT: Normocephalic
Respiratory: Clear to Auscultation
Cardiac: Irregular Rhythm
Breast: Deferred by me
GI: Soft, Nontender and Nondistended
Rectal: Deferred by Provider
Musculoskeletal: No Clubbing, No Cyanosis and No Edema
Skin: Warm
Neuro: Nonfocal/Grossly Intact
Psych: Calm

Documented by User: Surinder Chen MD 02/01/24 15:09
Assessment / Plan
Assessment / Plan
- Acute hematuria with clot retention: - Improving
Continuous bladder irrigation
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
Over the evening the catheter became obstructed with clots multiple times. After Jones changed to 24FR 3-way catheter it was clear. No blood in catheter bag seen this morning.
-Acute urinary retention with clot obstruction: - Improving
Continuous bladder irrigation
- Acute Blood Loss Anemia: Hematuria - Improving
Blood transfusion given.
Continue to follow labs and assess whether another transfusion is indicated. If indicated, will need further follow-up for other sources of blood loss.
- Persistent Atrial Fibrillation: - Stable
EKG continues to show atrial fibrillation that is persistent regardless of medication.
Monitoring patient on telemetry.
- Chronic HFpEF: - Stable
Cardiology consult on 12/29/2023 states that the patient has a history of chronic heart failure with preserved ejection fraction. An echo on 08/01/2023 shows an ejection fraction of 60 to 65%
Monitoring patient on telemetry. Holding lasix for now. Follow Wts daily
-Enterococcus bacteremia suspected urinary source
Likely due to bladder outlet obstruction from clots.
Infectious disease suspects Enterococcus
Patient started on ampicillin and vancomycin
Recheck white blood cell count and urine analysis
-MARIZOL on CKD stage III: Stable and Monitoring
Possibly multifactorial - urinary retention from clot obstruction, infection, prerenal from blood loss
Continue to monitor BUN and creatinine. BUN is stable at 58 and creatinine is stable as well at 2.7
- History of prostate cancer status post XRT:
Advised to continue following a urologist outpatient.
- Borderline Underweight: - Stable
Patient has a BMI that has fluctuated around 19.5. His fluctuations in BMI put him approximately in the category of being borderline underweight.
Current nutrition goals have been met and dietary continues to follow the patient.
CODE: DNR
[2024-02-01] MEDS: TOPROL XL PO (22:12)
[2024-02-01] MEDS: FLUSH (NSS) 2 FLUSH IV (22:21)
[2024-02-01] MEDS: PACERONE 200 MG PO (22:21)
[2024-02-02] VITALS (15 sets, daily range): BP systolic 85–114; BP diastolic 55–80; PULSE 82–85; BMI 19.5
[2024-02-02] MEDS: ProAmatine 5 MG PO ×4 (00:13→23:47)
--- NOTE | 2024-02-02 01:30 | PTCARENOTE ---
Patient resting comfortably overnight. CBI infusing. Output yellow/clear. VSS. Afib on tele monitor. Rate controlled. HS dose of metoprolol held per parameters.
[2024-02-02 04:24] LABS: Hematocrit 22.5 % (39.0-52.0); Hemoglobin 7.6 g/dL (13.0-18.0); Mean Corp Hgb Conc. 33.8 g/dL (33.0-37.0); Mean Corpuscular Hgb 32.1 pg (27.0-31.0); Mean Corpuscular Volume 94.9 fL (80.0-94.0); Mean Platelet Volume 9.3 fL (7.4-10.4); Platelet Count 127 10^3/uL (130-400); Red Blood Cell Count 2.37 10^6/uL (4.70-6.10); Red Cell Dist. Width 17.6 % (11.5-14.5); White Blood Cell Count 9.8 10^3/uL (4.8-10.8)
[2024-02-02 04:45] LABS: Vancomycin Random 13.2 ug/ml
[2024-02-02 04:49] LABS: Blood Urea Nitrogen 47 mg/dl (9-20); Calcium 8.1 mg/dl (8.4-10.2); Carbon Dioxide 26 mmol/L (22-30); Chloride 104 mmol/L (98-107); Estimated Creatinine Clearance 24 ml/min; Glucose 99 mg/dl (70-99); Potassium 4.3 mmol/L (3.5-5.1); Sodium 135 mmol/L (135-145); eGFR 35.54
[2024-02-02] MEDS: AMPICILLIN 108 MG IV ×3 (05:21→21:09)
--- NOTE | 2024-02-02 08:00 | PTCARENOTE ---
Received pt sleeping.Awakens to voice.Speech is appropriate.Denies pain.+MAS,generalized weakness noted.Awaiting OT/PT to assist pt OOB to chair.A Fib with occasional V paced beat noted.POX 96% on RA.Decreased breath sounds bibasilar with left
basilar crackles noted.Occasional moist non productive cough noted.Appetite good.No BM.3 way CBI Jones intact with yellow urine.Skin integrity as documented.Plan of care discussed.
[2024-02-02] MEDS: NON-FORMULARY ITEM 1 APPLIC TOPICAL (08:12)
--- NOTE | 2024-02-02 09:26 | W.PN.ID1 ---
Date of Service
Date of Service: February 02, 2024
Today's Communication
continue vancomcyin and ampicillin pending sensitivities
second set of blood cultures today
source most likely urinary
Assessment / Plan
# GPC bacteremia due to bladder outlet obstruction from clot retention
# Recurrent radiation hemorrhagic cystitis
# MARIZOL on CKD3
# hypotension
# blood loss anemia
- Repeat 1 set of blood cx today
- urine culture did not reflex, at this point very low yield post CBI, agree that initial source of bacteremia was likely urine
- continue ampicillin 2g IV q8h, renally dosed.
- Continue empiric Vancomycin for now pending sensitivities
- may consider TTE pending duration of bacteremia
- Follow wbc.
#Conditions prior to admission
Permanent atrial fibrillation on Eliquis
CKD 3
Severe mitral regurgitation
Cardiomyopathy s/p ICD placement
Essential tremor
Prostate cancer status post XRT
Radiation induced hemorrhagic cystitis
Right hip replacement
Paraesophageal hernia and gastric volvulus repair
Chief Complaint
-: UTI and Bacteremia
Subjective / Review of Systems
afebrile
bp stable
without leukocytosis today
cr improved
Vital Signs / Physical Exam
Vital Signs
Vital Signs
Temp Pulse Resp BP Pulse Ox
97.5 F 76 18 85/55 96
02/02/24 08:14 02/02/24 06:00 02/02/24 06:00 02/02/24 06:00 02/02/24 08:00
Physical Exam
Constitutional: No Acute Distress
Cardiovascular: Regular Rate and S1/S2; Negative Murmur or Rub
Pulmonary: Clear and Symmetric; Negative Wheezes or Rales
Gastrointestinal: Soft, Non Tender, Non Distended and Normal Bowel Sounds
Extremities: Negative Splinter Hemorrhage
Skin: Warm and Dry; Negative Rash or Jaundice
Lines: Other (no erythema, warmth, swelling over the pacemaker)
Objective Data
Lab Data
Lab Results
02/02/24 04:14
02/02/24 04:14
PT 19.5 Sec (11.4-14.6) H 01/30/24 16:52
INR 1.67 01/30/24 16:52
APTT 36.0 Sec (23.4-35.0) H 01/30/24 16:52
Estimated Creat Clear 24 ml/min 02/02/24 04:14
Lactic Acid 1.6 mmol/L (0.7-2.0) 02/01/24 11:03
Total Bilirubin 1.4 mg/dl (0.2-1.3) H 01/30/24 05:49
AST 40 U/L (17-59) 01/30/24 05:49
ALT 28 U/L (0-50) 01/30/24 05:49
Alkaline Phosphatase 103 U/L (38-126) 01/30/24 05:49
Most recent labs reviewed.
Micro Results:
02/01/24 04:23 Blood Culture - Preliminary
Blood/Venous No Growth in 24 hours- Final report to follow
01/30/24 16:57 Blood Culture - Preliminary
Blood/Venous Enterococcus species
Gram Stain - Final
01/30/24 16:52 Blood Culture - Preliminary
Blood/Venous Enterococcus species
Gram Stain - Final
--- NOTE | 2024-02-02 10:20 | PHA.VAN.FU ---
Vancomycin Assessment / Plan
- Assessment
Renal Function: SCR Decreasing
WBC's are: Trending Down
In the past 24 hrs, patient has been: Afebrile
Concomitant Antimicrobials: ampicillin
- Assessment - Therapeutic Drug Monitoring
Random Level: 13.2 - drawn ~16.5H after previous dose of 750mg
- Dosing Plan
Dosing by Level: Re-dose today (Vanc 750mg)
- Monitoring Plan
Random Level: 02/02 0600
- Follow Up
Pharmacy will continue to follow.
Vancomycin Follow UP
- -
Patient Age: 89
Patient Sex: Male
Vancomycin Day #: 3
Indication: Bacteremia
Requesting Provider: Dr. Chen / Gabriel
Pertinent Antimicrobial Allergies:
no pertinent antibiotic allergies
Height / Weight:
Height 5 ft 10 in
Actual Weight 61.5 kg
Pertinent Past Medical History: CKD 3
- Vital Signs / Lab Results
Temp Pulse Resp BP Pulse Ox
97.5 F 76 13 92/55 96
02/02/24 08:14 02/02/24 10:00 02/02/24 10:00 02/02/24 10:00 02/02/24 08:00
Lab Results - Hematology
01/31/24 02/01/24 02/02/24
03:57 04:23 04:14
WBC 17.8 H 12.6 H 9.8
Lab Results - Chemistry
01/31/24 02/01/24 02/02/24
03:57 04:23 04:14
BUN 58 H 58 H 47 H
Creatinine 2.8 H 2.7 H 1.8 H
Estimated Creat Clear 16 16 24
02/01/24
11:03
Lactic Acid 1.6
Microbiology Results
02/01/24 04:23 Blood Culture - Preliminary
Blood/Venous No Growth in 24 hours- Final report to follow
01/30/24 16:57 Blood Culture - Preliminary
Blood/Venous Enterococcus species
Gram Stain - Final
01/30/24 16:52 Blood Culture - Preliminary
Blood/Venous Enterococcus species
Gram Stain - Final
Therapeutic Drug Monitoring
Random Vancomycin 13.2 ug/ml 02/02/24 04:14
--- NOTE | 2024-02-02 10:47 | W.PN.HOSP.TC ---
Addendum entered and electronically signed by Surinder Chen MD 02/02/24 15:02:
I saw and evaluated the patient. I reviewed the resident�s note and agree with findings and plan as documented in the resident�s note.
Original Note:
Today's Communication/Plan
-
Catheter bag shows a clear yellow urine which indicates that the acute hematuria is likely resolving. The patient's lab continues to show anemia and we will assess whether blood transfusion products are appropriate at this time. We will continue
to follow labs to assess whether the anemia is improving and if his kidney function and other chemistries are as well.
Assessment / Plan
Assessment / Plan
- Acute hematuria with clot retention: - Improving
Continuous bladder irrigation
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
No blood in catheter bag seen this morning or the morning prior. Acute hematuria appears to be resolving.
-Acute urinary retention with clot obstruction: - Improving
Continuous bladder irrigation
No blood in catheter bag seen this morning or the morning prior. Acute hematuria appears to be resolving.
- Acute Blood Loss Anemia: Hematuria - Stable
Blood transfusion given.
Hemoglobin was 7.6 on 02/01
Continue to follow labs and assess whether another transfusion is indicated. If indicated, will need further follow-up for other sources of blood loss.
- Persistent Atrial Fibrillation: - Stable
EKG continues to show atrial fibrillation that is persistent regardless of medication.
Monitoring patient on telemetry.
- Chronic HFpEF: - Stable
Cardiology consult on 12/29/2023 states that the patient has a history of chronic heart failure with preserved ejection fraction. An echo on 08/01/2023 shows an ejection fraction of 60 to 65%
Monitoring patient on telemetry. Holding lasix for now. Follow Wts daily
-Enterococcus bacteremia suspected urinary source
Likely due to bladder outlet obstruction from clots.
Infectious disease suspects Enterococcus
Patient started on ampicillin and vancomycin
Recheck white blood cell count and urine analysis
-MARIZOL on CKD stage III: Stable and Monitoring
Possibly multifactorial - urinary retention from clot obstruction, infection, prerenal from blood loss
Continue to monitor BUN and creatinine. BUN is stable at 47 and creatinine is stable as well at 1.8
- History of prostate cancer status post XRT:
Advised to continue following a urologist outpatient.
- Borderline Underweight: - Stable
Patient has a BMI that has fluctuated around 19.5. His fluctuations in BMI put him approximately in the category of being borderline underweight.
Current nutrition goals have been met and dietary continues to follow the patient.
CODE: DNR
Anticipated Discharge: 24 - 48 hours
Subjective/Interval History
-
Date of Service: February 02, 2024
Met with patient at the bedside. He states that he is doing well and offers no complaints at the present time. He has been trying to get up and ambulate in his room from time to time. He is calm and in a pleasant mood during discussion.
Objective Data
-
Labs:
Laboratory Results
02/02/24
04:14
WBC 9.8
Hgb 7.6 L
Hct 22.5 L
Plt Count 127 L
Sodium 135
Potassium 4.3
Chloride 104
Carbon Dioxide 26
BUN 47 H
Creatinine 1.8 H
Glucose 99
Calcium 8.1 L
Vital Signs:
Vital Signs
Temp Pulse Resp BP Pulse Ox
97.5 F 76 13 92/55 96
02/02/24 08:14 02/02/24 10:00 02/02/24 10:00 02/02/24 10:00 02/02/24 08:00
I&O
02/01/24 02/02/24 02/03/24
06:59 06:59 06:59
Intake Total 456 / 456 456 / 456
Output Total 3450 / 3450 2375 / 2375
Balance -2994 / -2994 -1919 / -1918
Review of Systems
-
History Source: Patient
All other systems: Reviewed and negative
Constitutional: Reports No Symptoms
EENT: Reports No Symptoms Reported
Respiratory: Reports No Symptoms
Cardiac: Reports No Symptoms
Abdomen/GI: Reports No Symptoms
Breast: Reports No Symptoms
Genitourinary: Reports No Symptoms
Musculoskeletal: Reports No Symptoms
Skin: Reports No Symptoms
Neuro: Reports No Symptoms
Endocrine: Reports No Symptoms
Hematologic / Lymphatic: Reports No Symptoms
Allergy / Immunology: Reports No Symptoms
Physical Exam
-
General: Well Developed, Well Nourished and No Apparent Distress
HEENT: Normocephalic, Atraumatic and Moist Mucous Membranes
Respiratory: Clear to Auscultation
Cardiac: Irregular Rhythm
Breast: Deferred by me
GI: Soft, Nontender and Nondistended
Rectal: Deferred by Provider
Genito-urinary: Clear Urine
Musculoskeletal: No Clubbing, No Cyanosis and No Edema
Skin: Warm
Neuro: Awake and Nonfocal/Grossly Intact
Psych: Calm
--- NOTE | 2024-02-02 10:52 | PN.CDI ---
CDI
- -
CDI:
Physician Documentation Request
Admit Date: 01/30/24 13:40
Dear Doctor Gustavo,
Please review the following and provide your response in the progress notes.
Clinical Indicators:
Pt admitted with Acute urinary retention w/ clot obstruction Radiation cystitis/MARIZOL on CKD 3/ UTI
Documented per [facility] panel /note on admit 01/29, Buttocks stage 1 pressure injury ...silicone border foam placed.
Physician documentation of the type and location of wounds is required for compliant documentation. Based on the above clinical findings and your assessment, please provide the following in your progress note:
1. Location of the ulcer/wound, including laterality.
2. Type (etiology) of ulcer/wound:
- Pressure (decubitus) ulcer
- Non-pressure ulcer
- Other
Use of terms such as suspected, likely, concern for, or probable (associated with a specific diagnosis that is being evaluated, monitored, or treated as if it exists) are acceptable and can be coded in the inpatient setting, when documented at the
time of discharge.
Thank you,
Emmie Isaac RN
CDI Specialist
Surprise text
Please use your independent medical judgment in providing your response.
*Source: National Pressure Ulcer Advisory Panel (NPUAP)
[2024-02-02] MEDS: VANCOCIN 150 IV (12:06)
--- NOTE | 2024-02-02 12:14 | W.PN.URO.CBU ---
Today's Communication / Plan
-
D/c CBI (ordered by Urology)
Maintain Jones catheter to drainage
Plan for outpatient TOV in 1 week w/ Urology (given decompression hematuria after Jones catheter placement)
Consider restarting Eliquis in 24 hrs
Consider starting tamsulosin 0.4 mg qhs prior to d/c if SBPs allow
Trend H/H and Cr - no active bleeding noted
Assessment / Plan
-
Acute urinary retention w/ clot obstruction - hematuria resolved w/ CBI
Radiation cystitis
H/o prostate cancer s/p XRT
MARIZOL on CKD III - improving
Hgb 7.8 (8.2 <= 8.7)
Cr 1.8 (2.7 <= 2.8 <= 2.4)
Diagnosis
-
Date of Service: February 02, 2024
-
Patient Diagnosis:
Radiation-induced hemorrhagic cystitis
Acute urinary retention w/ clot obstruction
H/o prostate cancer s/p XRT
MARIZOL on CKD III
12/27: s/p cystoscopy (inpatient w/ Dr. Tobin) => radiation changes to bladder, no active bleeding.
Subjective
-
Urine remains clear in tubing x36 hrs.
Tolerating diet.
Denies suprapubic/penile pain.
Objective
-
Vital Signs
Temp Pulse Resp BP Pulse Ox
97.5 F 76 13 92/55 96
02/02/24 08:14 02/02/24 10:00 02/02/24 10:00 02/02/24 10:00 02/02/24 08:00
Intake and Output
02/01/24 02/02/24 02/03/24
06:59 06:59 06:59
Intake Total 456 / 456 456 / 456
Output Total 3450 / 3450 2375 / 2375
Balance -2994 / -2994 -1918 / -1918
Intake:
Oral fluids 240 / 240 240 / 240
IV piggybacks 216 / 216 216 / 216
Output:
True Urine Output from CBI 3450 / 3450 2375 / 2375
True urine output from hand 0 / 0
irrigation
Laboratory Results
02/02/24 04:14
02/02/24 04:14
Physical Exam
-
General - well developed, well nourished, no acute distress
Abdomen - soft, non-tender
Genitalia - normal, 24Fr 3-way catheter w/ clear UOP
Skin - warm & dry with no rash
Neuro - AOx3, no motor deficits
Extremities - no clubbing, no cyanosis, no edema
--- NOTE | 2024-02-02 12:16 | PTCARENOTE ---
Pt assessed.No change in assessment noted.Pt assisted OOB with PT/OT.CBI intact with yellow urine.
--- NOTE | 2024-02-02 12:55 | PTCARENOTE ---
CBI discontinued as ordered.
--- NOTE | 2024-02-02 16:33 | PTCARENOTE ---
Pt assessed.No change in assessment noted.
[2024-02-02] MEDS: PACERONE 200 MG PO (21:10)
[2024-02-02] MEDS: TOPROL XL 12.5 MG PO (21:10)
[2024-02-03] VITALS (14 sets, daily range): BP systolic 91–115; BP diastolic 51–81
[2024-02-03 05:06] LABS: Hematocrit 22.1 % (39.0-52.0); Hemoglobin 7.3 g/dL (13.0-18.0); Mean Corpuscular Hgb 31.7 pg (27.0-31.0); Mean Corpuscular Volume 96.1 fL (80.0-94.0); Mean Platelet Volume 9.4 fL (7.4-10.4); Platelet Count 121 10^3/uL (130-400); Red Cell Dist. Width 17.6 % (11.5-14.5); White Blood Cell Count 6.8 10^3/uL (4.8-10.8)
[2024-02-03] MEDS: AMPICILLIN 108 MG IV ×3 (05:12→22:27)
[2024-02-03 06:39] LABS: Blood Urea Nitrogen 37 mg/dl (9-20); Carbon Dioxide 26 mmol/L (22-30); Chloride 104 mmol/L (98-107); Estimated Creatinine Clearance 28 ml/min; Glucose 93 mg/dl (70-99); Potassium 4.5 mmol/L (3.5-5.1); Sodium 134 mmol/L (135-145); eGFR 40.93
[2024-02-03] MEDS: ProAmatine 5 MG PO ×3 (08:14→23:35)
[2024-02-03] MEDS: NON-FORMULARY ITEM 1 APPLIC TOPICAL (08:14)
--- NOTE | 2024-02-03 09:51 | PTCARENOTE ---
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 Ox3 and appropriate. Pt requested to get oob to the chair for breakfast, able to stand with a one person assist and a rolling walker. Coarse breath sounds at the bases, encouraged deep breathing exercises. Robert continues
to put out blood tinged urine, currently draining without difficulty. Hospitalist made aware.
--- NOTE | 2024-02-03 10:00 | W.PN.HOSP.TC ---
Addendum entered and electronically signed by Surinder Chen MD 02/03/24 13:35:
I saw and evaluated the patient. I reviewed the resident�s note and agree with findings and plan as documented in the resident�s note.
patient only complaint is generalized weakness .
Tolerating diet. No shortness of breath. No fevers.
Chest clear.
Hemodynamically stable.
Mild hematuria noted.
Blood count slightly dropped to 7.8.
Unclear generalized weakness is progressive anemia or postinfection from his bacteremia .
Feels there is role of one unit blood transfusion as his anemia may be symtpomatic; bacteremia cleared.
Tx to tele.
Original Note:
Documented by User: Itzel Boykin MD, Resident 02/03/24 11:47
Today's Communication/Plan
-
Patient's hematuria has resumed and the patient required 1 pack of RBCs. Patient's BUN and creatinine continue to improve. MiraLAX given for constipation. We will continue to monitor.
Assessment / Plan
Assessment / Plan
- Acute hematuria with clot retention: - Unstable
Continuous bladder irrigation
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
Blood in catheter bag seen this morning. Hematuria appears to have resumed.
Will not resume Eliquis until hematuria is completely resolved.
1 unit of packed RBCs given.
Continue to trend CBC
-Acute urinary retention with clot obstruction: - Unstable
Continuous bladder irrigation
Blood in catheter bag seen this morning. Hematuria appears to have resumed.
- Acute Blood Loss Anemia: Hematuria - Unstable
Blood transfusion given.
Hemoglobin was 7.3 on 02/02
Continue to follow labs and assess whether another transfusion is indicated. If indicated, will need further follow-up for other sources of blood loss.
- Persistent Atrial Fibrillation: - Stable
EKG continues to show atrial fibrillation that is persistent regardless of medication.
Monitoring patient on telemetry.
- Chronic HFpEF: - Stable
Cardiology consult on 12/29/2023 states that the patient has a history of chronic heart failure with preserved ejection fraction. An echo on 08/01/2023 shows an ejection fraction of 60 to 65%
Monitoring patient on telemetry. Holding lasix for now. Follow Wts daily
-Enterococcus bacteremia suspected urinary source
Likely due to bladder outlet obstruction from clots.
Infectious disease suspects Enterococcus
Continue Ampicillin - Enterococcus faecalis culture showed sensitivity to ampicillin
White blood cell count is 6.8 on 02/02 and continues to show improvement
-MARIZOL on CKD stage III: Stable and Monitoring
Possibly multifactorial - urinary retention from clot obstruction, infection, prerenal from blood loss
Continue to monitor BUN and creatinine. BUN is stable at 37 and creatinine is stable as well at 1.6
- History of prostate cancer status post XRT:
Advised to continue following a urologist outpatient.
- Borderline Underweight: - Stable
Patient has a BMI that has fluctuated around 19.5. His fluctuations in BMI put him approximately in the category of being borderline underweight.
Current nutrition goals have been met and dietary continues to follow the patient.
CODE: DNR
Anticipated Discharge: 24 - 48 hours
Subjective/Interval History
-
Date of Service: February 03, 2024
Met with patient at the bedside. Patient states that he is doing well and offers no complaints at the present time. He is calm and cooperative during discussion. He states that he has noticed that his urine is red-colored again. He also states
that he feels unsteady on his feet at times. Patient feels slightly constipated and he has not had a bowel movement in 2 days.
Objective Data
-
Labs:
Laboratory Results
02/03/24 02/03/24
04:40 05:58
WBC 6.8
Hgb 7.3 L
Hct 22.1 L
Plt Count 121 L
Sodium Cancelled 134 L
Potassium Cancelled 4.5
Chloride Cancelled 104
Carbon Dioxide Cancelled 26
BUN Cancelled 37 H
Creatinine Cancelled 1.6 H
Glucose Cancelled 93
Calcium Cancelled 8.0 L
Vital Signs:
Vital Signs
Temp Pulse Resp BP Pulse Ox
98.3 F 72 27 111/67 99
02/03/24 07:30 02/03/24 08:14 02/03/24 08:00 02/03/24 08:14 02/03/24 09:41
I&O
02/02/24 02/03/24 02/04/24
06:59 06:59 06:59
Intake Total 456 / 456 1188 / 1188
Output Total 2375 / 2375 1450 / 1450
Balance -1919 / -1919 -262 / -262
Review of Systems
-
History Source: Patient
All other systems: Reviewed and negative
Constitutional: Reports No Symptoms
EENT: Reports No Symptoms Reported
Respiratory: Reports No Symptoms
Cardiac: Reports No Symptoms
Abdomen/GI: Reports No Symptoms
Breast: Reports No Symptoms
Genitourinary: Reports No Symptoms
Musculoskeletal: Reports No Symptoms
Skin: Reports No Symptoms
Neuro: Reports No Symptoms
Endocrine: Reports No Symptoms
Hematologic / Lymphatic: Reports No Symptoms
Allergy / Immunology: Reports No Symptoms
Physical Exam
-
General: Well Developed, Well Nourished and No Apparent Distress
HEENT: Normocephalic, Atraumatic and Moist Mucous Membranes
Respiratory: Clear to Auscultation
Cardiac: Irregular Rhythm
Breast: Deferred by me
GI: Soft, Nontender, Nondistended and Normal Bowel Sounds
Rectal: Deferred by Provider
Genito-urinary: Deferred by me
Musculoskeletal: No Clubbing, No Cyanosis and No Edema
Skin: Warm
Neuro: Nonfocal/Grossly Intact

Documented by User: Surinder Chen MD 02/03/24 13:24
Assessment / Plan
Assessment / Plan
- Acute hematuria with clot retention:
Continuous bladder irrigation
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
Blood in catheter bag seen this morning.
Will not resume Eliquis until hematuria is completely resolved.
1 unit of packed RBCs given.
Continue to trend CBC
-Acute urinary retention with clot obstruction: -
Continuous bladder irrigation
Blood in catheter bag seen this morning.
- Acute Blood Loss Anemia: Hematuria
Blood transfusion given.
Hemoglobin was 7.3 on 02/02
Continue to follow labs and assess whether another transfusion is indicated. If indicated, will need further follow-up for other sources of blood loss.
- Persistent Atrial Fibrillation: - Stable
EKG continues to show atrial fibrillation that is persistent regardless of medication.
Monitoring patient on telemetry.
- Chronic HFpEF: - Stable
Cardiology consult on 12/29/2023 states that the patient has a history of chronic heart failure with preserved ejection fraction. An echo on 08/01/2023 shows an ejection fraction of 60 to 65%
Monitoring patient on telemetry. Holding lasix for now. Follow Wts daily
-Enterococcus bacteremia suspected urinary source
Likely due to bladder outlet obstruction from clots.
Infectious disease suspects Enterococcus
Continue Ampicillin - Enterococcus faecalis culture showed sensitivity to ampicillin
White blood cell count is 6.8 on 02/02 and continues to show improvement
-MARIZOL on CKD stage III: Stable and Monitoring
Possibly multifactorial - urinary retention from clot obstruction, infection, prerenal from blood loss
Continue to monitor BUN and creatinine. BUN is stable at 37 and creatinine is stable as well at 1.6
- History of prostate cancer status post XRT:
Advised to continue following a urologist outpatient.
- Borderline Underweight: - Stable
Patient has a BMI that has fluctuated around 19.5. His fluctuations in BMI put him approximately in the category of being borderline underweight.
Current nutrition goals have been met and dietary continues to follow the patient.
CODE: DNR
--- NOTE | 2024-02-03 11:38 | W.PN.ID1 ---
Date of Service
Date of Service: February 03, 2024
Today's Communication
- Continue IV ampicillin (d4).
- At time of discharge, transition to amoxicillin 500mg po q12 through 02/13/24.
Assessment / Plan
# E. faecalis bacteremia due to bladder outlet obstruction from clot retention
# Recurrent radiation hemorrhagic cystitis
# MARIZOL on CKD3, improving
# Fever and leukocytosis resolved
# s/p hypotension
# s/p blood loss anemia
- Repeat bcx's x 2 neg to date
- Continue IV ampicillin (d4).
- At time of discharge, transition to amoxicillin 500mg po q12 through 02/13/24.
#Conditions prior to admission
Permanent atrial fibrillation on Eliquis
CKD 3
Severe mitral regurgitation
Cardiomyopathy s/p ICD placement
Essential tremor
Prostate cancer status post XRT
Radiation induced hemorrhagic cystitis
Right hip replacement
Paraesophageal hernia and gastric volvulus repair
Chief Complaint
-: UTI and Bacteremia
Subjective / Review of Systems
Feeling better.
Vital Signs / Physical Exam
Vital Signs
Vital Signs
Temp Pulse Resp BP Pulse Ox
98.7 F 72 27 111/67 96
02/03/24 11:13 02/03/24 08:14 02/03/24 08:00 02/03/24 08:14 02/03/24 11:18
Physical Exam
Constitutional: No Acute Distress and Comfortable
Pulmonary: Clear
Gastrointestinal: Soft, Non Tender and Non Distended
Genito-Urinary: Hematuria (mild)
Neurological: AO x 3
Objective Data
Lab Data
Lab Results
02/03/24 04:40
02/03/24 05:58
PT 19.5 Sec (11.4-14.6) H 01/30/24 16:52
INR 1.67 01/30/24 16:52
APTT 36.0 Sec (23.4-35.0) H 01/30/24 16:52
Estimated Creat Clear 28 ml/min 02/03/24 05:58
Lactic Acid 1.6 mmol/L (0.7-2.0) 02/01/24 11:03
Total Bilirubin 1.4 mg/dl (0.2-1.3) H 01/30/24 05:49
AST 40 U/L (17-59) 01/30/24 05:49
ALT 28 U/L (0-50) 01/30/24 05:49
Alkaline Phosphatase 103 U/L (38-126) 01/30/24 05:49
Most recent labs reviewed.
Micro Results:
02/02/24 10:20 Blood Culture - Preliminary
Blood/Venous No Growth in 24 hours- Final report to follow
02/01/24 04:23 Blood Culture - Preliminary
Blood/Venous No Growth in 48 hours- Final report to follow
01/30/24 16:52 Blood Culture - Final
Blood/Venous Enterococcus faecalis
Gram Stain - Final
01/30/24 16:57 Blood Culture - Final
Blood/Venous Enterococcus faecalis
Gram Stain - Final
--- NOTE | 2024-02-03 12:04 | CM ---
Addendum entered by Chuy Chambers 02/03/24 14:29:
CM spoke to pt's daughter Mariza who brought to me her very unhappy and anxious feelings regarding pt's plan for discharge tomorrow or Tuesday. CM explained to pt's daughter criteria for inpatient hospital level of care and daughter reluctantly
expressed her understanding.
Pt6's daughter stated she will not be able to transport pt to [facility] and she is requested to transport the pt by ambulance and she is aware of a potential co-pay. Ambulance auth obtained from [facility] for Acute care ambulance.
Original Note:
CM following re: discharge planning.
Reviewed pt's chart, met with pt, spoke to pt's daughter Kim and daughter Mariza to update on discharge plan progress.
PT and OT evaluations noted - SNF level of care recommended. CM discussed it with the pt and his daughters. pt's daughter Kim stated that original plan is changed and now she, her sister and the pt requested SNF and [facility] preferred.
According to pt potentially will be ready for discharge this weekend: tomorr or Tuesday and pt will not need IV antibiotics.
A referral to [facility] made, spoke to director loss prevention Lacie and she confirmed that pt is accepted for admission to [facility] either Tuesday or Tuesday.
An auth for SNF level of care initiated with [facility], spoke to [facility] welfare case worker Latha and based on clinical provided, pt is approved for SNF level of care at [facility] with accepting physician Dr. Thomas for 5 initial days from tomorrow 02/04/24
till 02/08/24 with LCD and NRD 02/08/24. Auth is: [id number]. For additional days call: [phone].
Auth information provided to [facility] director loss prevention and she confirmed again that pt will be accepted either Tuesday or Tuesday.
Ambulance auth is obtained with Acute care ambulance, auth: [id number]. Ambulance auth valid till Tuesday02/06/24.
IMM reviewed with the pt, placed on chart, pt has a copy.
Pt is aware of a potential ambulance co-pay and he stated his daughter probably will transport him in order to avoid co-pay.
[facility] nursing report: Please call [facility] nursing scanning supervisor [phone]
Please fax discharge instructions to: [phone]
D/C plan: [facility] either Tuesday or Tuesday.
CM will follow to assist pt with discharge to [facility] when pt is medically stable.
--- NOTE | 2024-02-03 13:00 | W.PN.URO.CBU ---
Today's Communication / Plan
-
Resume CBI today x24 hrs w/ consideration of clamp trial
Continue holding Eliquis
PRBC tranfusion per Hospitalist
Plan for voiding trial inpatient if urine remains clear prior to discharge
D/w RN.
D/w patient.
Assessment / Plan
-
Acute urinary retention w/ clot obstruction - significant hematuria resolved w/ CBI, recurrence 02/02
Radiation cystitis
H/o prostate cancer s/p XRT
MARIZOL on CKD III - improving
Hgb 7.3 (7.6 <= 8.2 <= 8.7)
Cr 1.6 (1.8 <= 2.7 <= 2.8)
Diagnosis
-
Date of Service: February 03, 2024
-
Patient Diagnosis:
Radiation-induced hemorrhagic cystitis
Acute urinary retention w/ clot obstruction
H/o prostate cancer s/p XRT
MARIZOL on CKD III
12/27: s/p cystoscopy (inpatient w/ Dr. Tobin) => radiation changes to bladder, no active bleeding.
Subjective
-
Hematuria restarted today - albeit lesser degree, light pink color.
No clots in tubing.
Previously clear urine >48 hrs.
Eliquis still held.
Denies abdominal/suprapubic pain.
Objective
-
Vital Signs
Temp Pulse Resp BP Pulse Ox
98 F 66 18 107/61 96
02/03/24 14:09 02/03/24 14:09 02/03/24 14:09 02/03/24 14:09 02/03/24 12:51
Intake and Output
02/02/24 02/03/24 02/04/24
06:59 06:59 06:59
Intake Total 456 / 456 1188 / 1188 250 / 250
Output Total 2375 / 2375 1450 / 1450
Balance -1919 / -1919 -262 / -262 250 / 250
Intake:
Oral fluids 240 / 240 1080 / 1080
IV piggybacks 216 / 216 108 / 108
Blood Product Amount Infused ( 250 / 250
mL)
Packed Rbc Leukoreduced Unit 250 / 250
[id number]
Output:
Urine, Jones 1250 / 1250
True Urine Output from CBI 2375 / 2375 200 / 200
Laboratory Results
02/03/24 04:40
02/03/24 05:58
Physical Exam
-
General - well developed, well nourished, no acute distress
Abdomen - soft, non-tender, non-distended
Genitalia - normal, 3-way catheter with pink urine in tubing
Skin - warm & dry with no rash
Neuro - AOx3, no motor deficits
Extremities - no clubbing, no cyanosis, no edema
Care Review
Data Reviewed
Discussed with: Nursing
[2024-02-03] MEDS: MIRALAX 17 GRAMS PO (14:47)
--- NOTE | 2024-02-03 15:53 | W.PN.HOSP.TC ---
Documented by User: Itzel Boykin MD, Resident 02/04/24 11:52
Today's Communication/Plan
-
Patient is stable at the present time and labs show a trend of improvement. At the time of discharge we will transition the patient to amoxicillin 500 mg p.o. every 12 hours through 02/13/2024. Begin discharge planning.
Assessment / Plan
Assessment / Plan
- Acute hematuria with clot retention:
Continuous bladder irrigation
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
Blood in catheter bag seen this morning and yesterday
Will not resume Eliquis until hematuria is completely resolved.
1 unit of packed RBCs given.
Continue to trend CBC
-Acute urinary retention with clot obstruction: -
Continuous bladder irrigation continued.
Blood in catheter bag seen yesterday.
Urology recommends voiding trial inpatient if urine remains clear prior to discharge.
- Acute Blood Loss Anemia: Hematuria
Blood transfusion given.
Hemoglobin was 7.3 on 02/02
Continue to follow labs and assess whether another transfusion is indicated. If indicated, will need further follow-up for other sources of blood loss.
- Persistent Atrial Fibrillation: - Stable
EKG continues to show atrial fibrillation that is persistent regardless of medication.
Monitoring patient on telemetry.
- Chronic HFpEF: - Stable
Cardiology consult on 12/29/2023 states that the patient has a history of chronic heart failure with preserved ejection fraction. An echo on 08/01/2023 shows an ejection fraction of 60 to 65%
Monitoring patient on telemetry. Holding lasix for now. Follow Wts daily
-Enterococcus bacteremia suspected urinary source: Resolving
Likely due to bladder outlet obstruction from clots.
Infectious disease suspects Enterococcus
Continue Ampicillin - Enterococcus faecalis culture showed sensitivity to ampicillin
White blood cell count is 6.3 on 02/03 and continues to show improvement
Infectious disease consult recommends transition to amoxicillin 500 mg PO q12h at the time of discharge through 02/13/2024
-MARIZOL on CKD stage III: Stable and Monitoring
Possibly multifactorial - urinary retention from clot obstruction, infection, prerenal from blood loss
Continue to monitor BUN and creatinine. BUN is stable at 31 and creatinine is stable as well at 1.5
Erythropoietin levels ordered - results pending
- History of prostate cancer status post XRT:
Advised to continue following a urologist outpatient.
- Borderline Underweight: - Stable
Patient has a BMI that has fluctuated around 19.5. His fluctuations in BMI put him approximately in the category of being borderline underweight.
Current nutrition goals have been met and dietary continues to follow the patient.
- Buttocks stage I pressure (decubitus) ulcer present on admission: - Improving
Patient presented with a buttock stage I pressure ulcer on admission. Silicone border foam placed.
Patient continues to be followed by wound care team.
Wound is healing and is Dry/Intact on 02/03.
CODE: DNR
Anticipated Discharge: Within 24 hours
Subjective/Interval History
-
Date of Service: February 04, 2024
Met with patient at the bedside. He states that he is doing well and has a positive demeanor. Unfortunately, he has complaints of a cough which started yesterday. It is a wet cough that is bothering him.
Objective Data
-
Labs:
Laboratory Results
02/03/24 02/03/24
04:40 05:58
WBC 6.8
Hgb 7.3 L
Hct 22.1 L
Plt Count 121 L
Sodium Cancelled 134 L
Potassium Cancelled 4.5
Chloride Cancelled 104
Carbon Dioxide Cancelled 26
BUN Cancelled 37 H
Creatinine Cancelled 1.6 H
Glucose Cancelled 93
Calcium Cancelled 8.0 L
Vital Signs:
Vital Signs
Temp Pulse Resp BP Pulse Ox
98 F 66 18 107/61 96
02/03/24 14:09 02/03/24 14:09 02/03/24 14:09 02/03/24 14:09 02/03/24 12:51
I&O
02/02/24 02/03/24 02/04/24
06:59 06:59 06:59
Intake Total 456 / 456 1188 / 1188 250 / 250
Output Total 2375 / 2375 1450 / 1450
Balance -1919 / -1919 -262 / -262 250 / 250
Review of Systems
-
History Source: Patient
Constitutional: Reports No Symptoms
EENT: Reports No Symptoms Reported
Respiratory: Reports Cough
Cardiac: Reports No Symptoms
Abdomen/GI: Reports No Symptoms
Breast: Reports No Symptoms
Genitourinary: Reports Bleeding
Musculoskeletal: Reports No Symptoms
Skin: Reports No Symptoms
Neuro: Reports No Symptoms
Endocrine: Reports No Symptoms
Hematologic / Lymphatic: Reports No Symptoms
Allergy / Immunology: Reports No Symptoms
Physical Exam
-
General: Well Developed and Well Nourished
HEENT: Normocephalic, Atraumatic and Moist Mucous Membranes
Respiratory: Other (Coughing on auscultation)
Cardiac: Irregular Rhythm
Breast: Deferred by me
GI: Soft, Nontender and Nondistended
Rectal: Deferred by Provider
Genito-urinary: Deferred by me
Musculoskeletal: No Clubbing, No Cyanosis and No Edema
Skin: Warm and Dry
Neuro: Nonfocal/Grossly Intact
Psych: Calm

Documented by User: Surinder Chen MD 02/04/24 14:15
Today's Communication/Plan
-
CW CBI ;follow HH
CW PT tx
Needs rehab when stable for dc.
Assessment / Plan
Assessment / Plan
- Acute hematuria with clot retention:
Continuous bladder irrigation
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
cw CBI
Will not resume Eliquis until hematuria is completely resolved.
2 unit of packed RBCs given on this admission.
Continue to trend CBC
- Acute Blood Loss Anemia: Hematuria
Blood transfusion given.
Hemoglobin improved s/p transfusion
Continue to follow labs and assess whether another transfusion is indicated.
- Persistent Atrial Fibrillation: - Stable
EKG continues to show atrial fibrillation that is persistent regardless of medication.
Monitoring patient on telemetry.
- Chronic HFpEF: - Stable
Cardiology consult on 12/29/2023 states that the patient has a history of chronic heart failure with preserved ejection fraction. An echo on 08/01/2023 shows an ejection fraction of 60 to 65%
Monitoring patient on telemetry. Holding lasix for now. Follow Wts daily
-Enterococcus bacteremia suspected urinary source: Resolving
Likely due to bladder outlet obstruction from clots.
Infectious disease suspects Enterococcus
Continue Ampicillin - Enterococcus faecalis culture showed sensitivity to ampicillin
White blood cell count is 6.3 on 02/03 and continues to show improvement
Infectious disease consult recommends transition to amoxicillin 500 mg PO q12h at the time of discharge through 02/13/2024
-MARIZOL on CKD stage III: Stable and Monitoring
Possibly multifactorial - urinary retention from clot obstruction, infection, prerenal from blood loss
Continue to monitor BUN and creatinine. BUN is stable at 31 and creatinine is stable as well at 1.5
Erythropoietin levels ordered - results pending
- History of prostate cancer status post XRT:
Advised to continue following a urologist outpatient.
- Borderline Underweight: - Stable
Patient has a BMI that has fluctuated around 19.5. His fluctuations in BMI put him approximately in the category of being borderline underweight.
Current nutrition goals have been met and dietary continues to follow the patient.
- Buttocks stage I pressure (decubitus) ulcer present on admission: - Improving
Patient presented with a buttock stage I pressure ulcer on admission. Silicone border foam placed.
Patient continues to be followed by wound care team.
Wound is healing and is Dry/Intact on 02/03.
CODE: DNR
DW Urology and daughter.
Anticipated Discharge: 24 - 48 hours
--- NOTE | 2024-02-03 16:08 | W.DCSUMMARY ---
Discharge Summary
Discharge Data
Date of Admission: 01/30/24
Date of Discharge: 02/14/24
-
Pending Results: No
Hospital Course
Patient is an 89-year-old male with a history of documented A-fib on Eliquis who presented to the emergency room for evaluation of hematuria and difficulty urinating. He recently had an admission in December for which she had hematuria and cystoscopy
done by Dr. Tobin. He believes that he had been doing well since his discharge until the day before he represented to the emergency department. He started to notice a small amount of blood in his urine in the morning and then said he passed
some clots and had difficulty putting out urine since then. He had increasing abdominal pain. In the emergency department bladder scan showed greater than 500 cc of retained urine. Initial attempts at placing a three-way Jones catheter were
unsuccessful and urology was consulted to assist with catheter placement and to follow the patient. His complete metabolic panel showed a creatinine of 2.4 which was increased from a baseline of 1.6 from prior labs. Patient was also given IV
Rocephin prophylaxis. Patient was admitted to [facility] for hypotension and anemia secondary to hematuria.
In the ICU the patient was stable off of pressors. Eliquis was held. Hypotension remained and hemoglobin dropped to 7.4. IV fluids were administered and 1 unit of PRBCs were administered for anemia. Cardiac disease was noted, and severe
pulmonary hypertension with valvular disease was noted. Urology continue to follow the patient and ongoing continuous bladder irrigation was administered to ensure urine flow and the passing of clots. The patient required multiple manual
irrigations of the CBI to ensure flow. Urine culture grew Enterococcus which was sensitive to ampicillin. Ampicillin administered for UTI. WBCs were trended and continued to improve during antibiotic therapy. As IV ampicillin took effect the
patient noted that he no longer felt as if he had a fever. Patient showed improvement in regards to his ongoing hematuria but unfortunately his hematuria resumed again after 1 day of cessation. Patient continued to go back and forth between
durations of time where he had mild hematuria and times when he had no hematuria. Multiple voiding trials were attempted but unfortunately the patient struggled to void normally. Jones was resumed at the recommendation of urology due to frequent
blood clots obstructing his urethra. Mild paraphimosis was detected and urology assessed the patient and reduced it. After UTI resolved on final voiding trial was attempted and the patient successfully was able to urinate on his own. Jones was
discontinued and the patient believes that he is ready for discharge at the present time. Patient's current lab values are stable including hemoglobin and hematocrit. Patient is currently at his baseline kidney function with a creatinine level
between 1.7 and 1.8.
The patient has reached maximal benefit from this hospital stay and is appropriate for discharge at the present time. The patient has been recommended to follow-up with his outpatient providers including his primary care provider, urologist,
mold filler plastic dolls, and investigation division lieutenant. Patient was not resumed on Eliquis due to fears of recurrent bleeding at the request of the patient and his family. Patient is aware of the risks and benefits of not resuming Eliquis and has been provided supportive
counseling. Patient is slated to be discharged to [facility] nursing facility.
Discharge Plan
-
Patient Disposition: Alf/SNF
Discharge Diagnosis/Procedures: E. faecalis bacteremia due to bladder outlet obstruction from clot retention
Recurrent radiation hemorrhagic cystitis
MARIZOL on CKD3
Acute blood loss anemia status posttransfusion
Atrial fibrillation on Eliquis
Diet: 2 Gram Sodium
Activity: As tolerated
Driving Restrictions: No driving
Blood Work: CBC and BMP in one week
Other Services: PT and OT
Activity Restrictions/Additional Instructions:
Voiding trial starting of the next week if no further bleeding and more mobile.
Referrals:
Eliezer Rogers MD [Active] - in two weeks
Epi Su DO [Family Provider] -
Prescriptions:
New
midodrine 5 mg Tablet
5 mg PO Q8 Qty: 1 0RF
amoxicillin 500 mg Capsule
500 mg PO Q12H Qty: 10 0RF
Rx Instructions:
Take one in the morning and one in the evening til 02/16
Continued
amiodarone [Pacerone] 200 mg tablet
200 mg PO HS
metoprolol succinate 25 mg Tablet Extended Release 24 Hr
12.5 mg PO HS Qty: 60 1RF
furosemide 40 mg Tablet
40 mg PO DAILY
Patient Comments:
01/30/24: patient's daughter states they sometimes vary the dosage depending on the patient's fluid retention.
clobetasol 0.05 % Solution
1 applic TOPICAL DAILY
furosemide 20 mg Tablet
20 mg PO MOWEFR PRN (Reason: wt gain/fluid retention)
Held
Eliquis 2.5 mg tablet
2.5 mg PO BID
Hold Instructions: Resume on 02/07/24. resume if no further hematuria
Discontinued
midodrine 2.5 mg Tablet
1.25 mg PO BID
Discharge Orders:
Discharge Patient (As Directed); Ordered 02/14/24
Ordered By: Itzel Boykin
Discharge Date and Time
Print Language: MOROCCAN
[2024-02-03] MEDS: PACERONE 200 MG PO (22:26)
[2024-02-03] MEDS: TOPROL XL PO (22:28)
[2024-02-04 03:42] VITALS: BP 103/61
[2024-02-04] MEDS: AMPICILLIN 108 MG IV ×3 (06:18→21:48)
[2024-02-04 07:15] VITALS: BP 111/71
[2024-02-04] MEDS: ProAmatine 5 MG PO ×2 (08:12→16:34)
[2024-02-04] MEDS: NON-FORMULARY ITEM 1 APPLIC TOPICAL (08:13)
[2024-02-04 08:30] LABS: Hematocrit 27.8 % (39.0-52.0); Mean Corp Hgb Conc. 33.5 g/dL (33.0-37.0); Mean Corpuscular Hgb 32.6 pg (27.0-31.0); Mean Corpuscular Volume 97.5 fL (80.0-94.0); Mean Platelet Volume 9.7 fL (7.4-10.4); Platelet Count 142 10^3/uL (130-400); Red Blood Cell Count 2.85 10^6/uL (4.70-6.10); Red Cell Dist. Width 17.3 % (11.5-14.5); White Blood Cell Count 6.3 10^3/uL (4.8-10.8)
[2024-02-04 09:01] LABS: Hemoglobin 9.3 g/dL (13.0-18.0)
[2024-02-04 09:09] LABS: ALT (SGPT) 43 U/L (0-50); AST (SGOT) 54 U/L (17-59); Albumin 2.9 g/dl (3.5-5.0); Alkaline Phosphatase 107 U/L (38-126); Blood Urea Nitrogen 31 mg/dl (9-20); Calcium 8.2 mg/dl (8.4-10.2); Carbon Dioxide 27 mmol/L (22-30); Chloride 102 mmol/L (98-107); Estimated Creatinine Clearance 30 ml/min; Glucose 86 mg/dl (70-99); Potassium 4.5 mmol/L (3.5-5.1); Sodium 135 mmol/L (135-145); Total Bilirubin 0.8 mg/dl (0.2-1.3); Total Protein 5.9 g/dl (6.3-8.2); eGFR 44.23
[2024-02-04 11:10] VITALS: BP 96/63
--- NOTE | 2024-02-04 11:26 | W.DS.TRANS ---
DC Summary - [facility]
-
Discharge Instructions:
Sleep Apnea Risk Intermediate
Discharge Diagnosis/Procedures E. faecalis bacteremia due to bladder outlet
obstruction from clot retention
Recurrent radiation hemorrhagic cystitis
MARIZOL on CKD3
Acute blood loss anemia status posttransfusion
Atrial fibrillation on Eliquis
Diet 2 Gram Sodium
Activity As tolerated
Driving Restrictions No driving
Blood Work CBC and BMP in one week
Other Services PT,OT
Instructions:
Stand-Alone Forms:
Changes to Home Medications: Yes
Discharge Medications:
DC Medications w/original date entered in [employer]
amiodarone 200 mg tablet (Pacerone) 200 mg PO HS Arrhythmia 12/26/23
metoprolol succinate 25 mg tablet,extended release 24 hr 12.5 mg (1/2 x 25 mg) PO HS Blood Pressure #60 tabs 12/30/23
apixaban 2.5 mg tablet (Eliquis) 2.5 mg PO BID Blood Clot Prevention/Tx 01/30/24
clobetasol 0.05 % scalp solution 1 applic topical DAILY scalp 01/30/24
furosemide 20 mg tablet 20 mg PO MOWEFR PRN wt gain/fluid retention 01/30/24
furosemide 40 mg tablet 40 mg PO DAILY Fluid Retention/Swelling 01/30/24
amoxicillin 500 mg capsule 500 mg PO BID #1 cap 02/04/24
midodrine 5 mg tablet 5 mg PO Q8 #1 tab 02/04/24
Home Medication Changes
New medication-amoxicillin
Home medication-hold Eliquis till Tuesday and if no further bleeding to resume
Pending Results: No
--- NOTE | 2024-02-04 13:04 | W.PN.ID1 ---
Date of Service
Date of Service: February 04, 2024
Today's Communication
Continue ampicillin.
Assessment / Plan
# E. faecalis bacteremia due to bladder outlet obstruction from clot retention
# Recurrent radiation hemorrhagic cystitis
# MARIZOL on CKD3, improving
# Fever and leukocytosis resolved
# s/p hypotension
# s/p blood loss anemia
- Repeat bcx's x 2 neg to date
- Continue IV ampicillin (d5).
- At time of discharge, transition to amoxicillin 500mg po q12 through 02/13/24.
#Conditions prior to admission
Permanent atrial fibrillation on Eliquis
CKD 3
Severe mitral regurgitation
Cardiomyopathy s/p ICD placement
Essential tremor
Prostate cancer status post XRT
Radiation induced hemorrhagic cystitis
Right hip replacement
Paraesophageal hernia and gastric volvulus repair
Chief Complaint
-: UTI and Bacteremia
Subjective / Review of Systems
Still with gross hematuria.
Vital Signs / Physical Exam
Vital Signs
Vital Signs
Temp Pulse Resp BP Pulse Ox
98.1 F 68 16 96/63 96
02/04/24 11:10 02/04/24 11:10 02/04/24 11:10 02/04/24 11:10 02/04/24 11:10
Physical Exam
Constitutional: No Acute Distress and Comfortable
Genito-Urinary: Jones and Hematuria
Neurological: AO x 3
Objective Data
Lab Data
Lab Results
02/04/24 07:01
02/04/24 07:01
PT 19.5 Sec (11.4-14.6) H 01/30/24 16:52
INR 1.67 01/30/24 16:52
APTT 36.0 Sec (23.4-35.0) H 01/30/24 16:52
Estimated Creat Clear 30 ml/min 02/04/24 07:01
Lactic Acid 1.6 mmol/L (0.7-2.0) 02/01/24 11:03
Total Bilirubin 0.8 mg/dl (0.2-1.3) 02/04/24 07:01
AST 54 U/L (17-59) 02/04/24 07:01
ALT 43 U/L (0-50) 02/04/24 07:01
Alkaline Phosphatase 107 U/L (38-126) 02/04/24 07:01
Most recent labs reviewed.
Micro Results:
02/02/24 10:20 Blood Culture - Preliminary
Blood/Venous No Growth in 48 hours- Final report to follow
02/01/24 04:23 Blood Culture - Preliminary
Blood/Venous No Growth in 72 hours- Final report to follow
01/30/24 16:52 Blood Culture - Final
Blood/Venous Enterococcus faecalis
Gram Stain - Final
01/30/24 16:57 Blood Culture - Final
Blood/Venous Enterococcus faecalis
Gram Stain - Final
[2024-02-04] MEDS: MIRALAX 17 GRAMS PO (14:27)
[2024-02-04 15:10] VITALS: BP 93/58
--- NOTE | 2024-02-04 18:10 | PTCARENOTE ---
Pt. with c/o pain and CBI obstructed. Hand irrigation preformed as ordered. Multiple clots removed. Pt. now without pain resting in bed comfortably. Drainage dark red to punch colored. Will continue to monitor and report on pt.
[2024-02-04 19:58] VITALS: BP 106/59
[2024-02-04] MEDS: PACERONE 200 MG PO (21:43)
[2024-02-04] MEDS: COLACE 100 MG PO (21:43)
[2024-02-04] MEDS: TOPROL XL 12.5 MG PO (21:46)
[2024-02-04 23:45] VITALS: BP 105/61
[2024-02-05] VITALS (7 sets, daily range): BP systolic 90–102; BP diastolic 48–55
[2024-02-05] MEDS: ProAmatine 5 MG PO ×4 (00:53→23:00)
[2024-02-05] MEDS: AMPICILLIN 108 MG IV ×3 (05:29→21:42)
--- NOTE | 2024-02-05 05:49 | W.PN.URO.CBU ---
Today's Communication / Plan
-
d/c Jones
voiding trial
Assessment / Plan
-
Acute urinary retention w/ clot obstruction - significant hematuria resolved w/ CBI, recurrence 02/02
Radiation cystitis
H/o prostate cancer s/p XRT
MARIZOL on CKD III - improving
hematuria has improved
Diagnosis
-
Date of Service: February 05, 2024
-
Patient Diagnosis:
Radiation-induced hemorrhagic cystitis
Acute urinary retention w/ clot obstruction
H/o prostate cancer s/p XRT
MARIZOL on CKD III
12/27: s/p cystoscopy (inpatient w/ Dr. Tobin) => radiation changes to bladder, no active bleeding.
Subjective
-
calm
Objective
-
Vital Signs
Temp Pulse Resp BP Pulse Ox
98.1 F 66 18 102/48 96
02/05/24 03:27 02/05/24 03:27 02/05/24 03:27 02/05/24 03:27 02/05/24 03:27
Intake and Output
02/03/24 02/04/24 02/05/24
06:59 06:59 06:59
Intake Total 1188 / 1188 1930 / 1930 820 / 820
Output Total 1450 / 1450 600 / 600 700 / 700
Balance -262 / -262 1330 / 1330 120 / 120
Intake:
Oral fluids 1080 / 1080 1680 / 1680 720 / 720
IV piggybacks 108 / 108 100 / 100
Blood Product Amount Infused ( 250 / 250
mL)
Packed Rbc Leukoreduced Unit 250 / 250
[id number]
Output:
Urine, Jones 1250 / 1250
True Urine Output from CBI 200 / 200 600 / 600 700 / 700
Other:
Number of approximated MODERATE 4
amounts of urine
Laboratory Results
02/04/24 07:01
Physical Exam
-
General - in bed, NAD
: Jones with peach-colored urine
[2024-02-05 07:00] LABS: Hematocrit 23.7 % (39.0-52.0); Hemoglobin 7.7 g/dL (13.0-18.0); Mean Corp Hgb Conc. 32.5 g/dL (33.0-37.0); Mean Corpuscular Hgb 31.3 pg (27.0-31.0); Mean Corpuscular Volume 96.3 fL (80.0-94.0); Mean Platelet Volume 9.7 fL (7.4-10.4); Platelet Count 131 10^3/uL (130-400); Red Blood Cell Count 2.46 10^6/uL (4.70-6.10); Red Cell Dist. Width 17.1 % (11.5-14.5)
--- NOTE | 2024-02-05 07:15 | PTCARENOTE ---
log getter nurse removed CBI at 0715 as ordered. Pt. DTV by 1315. Pt .resting in bed without c/o pain/discomfort at this time. Will continue to monitor.
--- NOTE | 2024-02-05 07:44 | W.PN.HOSP.TC ---
Addendum entered and electronically signed by Surinder Chen MD 02/05/24 14:20:
I saw and evaluated the patient. I reviewed the resident�s note and agree with findings and plan as documented in the resident�s note.
Patient was seen by urology this morning and his catheter was discontinued but he failed to void urine. He started to have blood at the tip of the penis. He was noted to be in retention. Urology who plans to place a Jones catheter and possibly
cystoscopy tomorrow.
Follow H&H closely which has drifted down. Hold on transfusion . Repeat H&H.
From infection standpoint is afebrile and hemodynamically better . cw abx.
DW daughter Kim at bedside and answered all her quesitons; she also spoke to urologist this afternoon .
Original Note:
Today's Communication/Plan
-
Urology has discontinued patient's Jones catheter in order to attempt a voiding trial. Persistent hematuria continues and hemoglobin was low at 7.7 today.
Assessment / Plan
Assessment / Plan
- Acute hematuria with clot retention: Monitoring - Unresolved
Continuous bladder irrigation
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
CBI discontinued, voiding trial initiated
Will not resume Eliquis until hematuria is completely resolved.
2 unit of packed RBCs given on this admission.
Continue to trend CBC -patient is currently 7.7 hemoglobin on 02/04 even after receiving 1 unit of PRBCs on 02/03
- Acute Blood Loss Anemia: Hematuria -unresolved
Blood transfusion given.
Hemoglobin improved to 9.3 on 02/03 following 1 unit of PRBCs given. Hemoglobin currently 7.7 on 02/04.
Continue to follow labs and assess whether another transfusion is indicated.
- Persistent Atrial Fibrillation: - Stable
EKG continues to show atrial fibrillation that is persistent regardless of medication.
Monitoring patient on telemetry.
- Chronic HFpEF: - Stable
Cardiology consult on 12/29/2023 states that the patient has a history of chronic heart failure with preserved ejection fraction. An echo on 08/01/2023 shows an ejection fraction of 60 to 65%
Monitoring patient on telemetry. Holding lasix for now. Follow Wts daily
-Enterococcus bacteremia suspected urinary source: Resolving
Likely due to bladder outlet obstruction from clots.
Infectious disease suspects Enterococcus
Continue Ampicillin - Enterococcus faecalis culture showed sensitivity to ampicillin
White blood cell count is 6.3 on 02/03 and continues to show improvement
Infectious disease consult recommends transition to amoxicillin 500 mg PO q12h at the time of discharge through 02/13/2024
-MARIZOL on CKD stage III: Stable and Monitoring
Possibly multifactorial - urinary retention from clot obstruction, infection, prerenal from blood loss
Continue to monitor BUN and creatinine. BUN is stable at 31 and creatinine is stable as well at 1.5
Erythropoietin levels ordered - results pending
- History of prostate cancer status post XRT:
Advised to continue following a urologist outpatient.
- Borderline Underweight: - Stable
Patient has a BMI that has fluctuated around 19.5. His fluctuations in BMI put him approximately in the category of being borderline underweight.
Current nutrition goals have been met and dietary continues to follow the patient.
- Buttocks stage I pressure (decubitus) ulcer present on admission: - Improving
Patient presented with a buttock stage I pressure ulcer on admission. Silicone border foam placed.
Patient continues to be followed by wound care team.
Wound is healing and is Dry/Intact on 02/03.
CODE: DNR
DW Urology and daughter.
Anticipated Discharge: > 48 hours
Subjective/Interval History
-
Date of Service: February 05, 2024
Met with patient at the bedside. He continues to feel tired but states that overall he feels mostly the same since yesterday. He was worried that his Jones was discontinued. He is unsure why the Jones was discontinued and hopes that he will be
able to urinate normally as he should. He is polite and cooperative in discussion.
Objective Data
-
Labs:
Laboratory Results
02/05/24
06:05
WBC 7.0
Hgb 7.7 L
Hct 23.7 L
Plt Count 131
Vital Signs:
Vital Signs
Temp Pulse Resp BP Pulse Ox
98.1 F 66 18 102/48 96
02/05/24 03:27 02/05/24 03:27 02/05/24 03:27 02/05/24 03:27 02/05/24 03:27
I&O
02/04/24 02/05/24 02/06/24
06:59 06:59 06:59
Intake Total 1930 / 1930 820 / 820
Output Total 600 / 600 2265 / 2265
Balance 1330 / 1330 -1445 / -1445
Review of Systems
-
History Source: Patient
Constitutional: Reports Fatigue
EENT: Reports No Symptoms Reported
Respiratory: Reports No Symptoms
Cardiac: Reports No Symptoms
Abdomen/GI: Reports No Symptoms
Breast: Reports No Symptoms
Genitourinary: Reports Other (S/p Jones removal)
Musculoskeletal: Reports No Symptoms
Skin: Reports No Symptoms
Neuro: Reports No Symptoms
Endocrine: Reports No Symptoms
Hematologic / Lymphatic: Reports No Symptoms
Allergy / Immunology: Reports No Symptoms
Physical Exam
-
General: Well Developed, Well Nourished, No Apparent Distress and Comfortable
HEENT: Normocephalic and Atraumatic
Respiratory: Other (Coughing)
Cardiac: Irregular Rhythm
Breast: Deferred by me
GI: Soft, Nontender and Nondistended
Rectal: Deferred by Provider
Genito-urinary: Deferred by me
Musculoskeletal: No Clubbing, No Cyanosis and No Edema
Skin: Warm and Dry
Neuro: Nonfocal/Grossly Intact
Psych: Calm
[2024-02-05] MEDS: MIRALAX 17 GRAMS PO (09:03)
[2024-02-05] MEDS: COLACE 100 MG PO ×2 (09:04→20:27)
[2024-02-05] MEDS: NON-FORMULARY ITEM 1 APPLIC TOPICAL (09:08)
--- NOTE | 2024-02-05 12:33 | PTCARENOTE ---
This nurse ambulate pt. to the bathroom with walker. Pt. unable to void but blood noted to be in the toilet and dripping from pt. penis. Dr. Chen and Dr. Tobin made aware. No new orders at this time.
[2024-02-05] MEDS: TYLENOL 650 MG PO (14:07)
[2024-02-05] MEDS: LIDOCAINE URO-JET 2% 1 SYRINGE TOPICAL (15:02)
--- NOTE | 2024-02-05 15:40 | PTCARENOTE ---
Per Urology [address] greenberg inserted with minimal resistance, pt. tolerated well. CBI restarted as ordered. Hand irrigated as ordered and removed many clots. CBI now flowing without difficulty. Pt. without c/o discomfort. Will monitor.
[2024-02-05] MEDS: PACERONE 200 MG PO (20:26)
[2024-02-05] MEDS: TOPROL XL PO (21:42)
[2024-02-05 21:54] LABS: Erythropoietin (EPO) 79 mU/mL (4-27)
[2024-02-06] VITALS (14 sets, daily range): BP systolic 90–116; BP diastolic 49–70
[2024-02-06 04:51] LABS: Mean Corp Hgb Conc. 33.3 g/dL (33.0-37.0); Mean Corpuscular Hgb 31.9 pg (27.0-31.0); Mean Corpuscular Volume 95.6 fL (80.0-94.0); Mean Platelet Volume 9.6 fL (7.4-10.4); Platelet Count 117 10^3/uL (130-400); Red Blood Cell Count 2.04 10^6/uL (4.70-6.10); White Blood Cell Count 8.1 10^3/uL (4.8-10.8)
[2024-02-06 04:57] LABS: Hematocrit 19.5 % (39.0-52.0); Hemoglobin 6.5 g/dL (13.0-18.0)
[2024-02-06 05:02] LABS: INR 1.25; PT 15.5 Sec (11.4-14.6)
[2024-02-06 05:03] LABS: APTT 34.5 Sec (23.4-35.0)
[2024-02-06] MEDS: AMPICILLIN 108 MG IV ×3 (05:08→21:38)
[2024-02-06 05:13] LABS: ALT (SGPT) 37 U/L (0-50); AST (SGOT) 44 U/L (17-59); Albumin 2.4 g/dl (3.5-5.0); Alkaline Phosphatase 89 U/L (38-126); Blood Urea Nitrogen 31 mg/dl (9-20); Calcium 7.9 mg/dl (8.4-10.2); Carbon Dioxide 27 mmol/L (22-30); Chloride 104 mmol/L (98-107); Estimated Creatinine Clearance 25 ml/min; Glucose 88 mg/dl (70-99); Potassium 4.7 mmol/L (3.5-5.1); Sodium 133 mmol/L (135-145); Total Bilirubin 0.7 mg/dl (0.2-1.3); Total Protein 5.1 g/dl (6.3-8.2); eGFR 35.54
--- NOTE | 2024-02-06 05:17 | W.PN.UPDATE ---
Update Note
Progress Note Update
hgb level dropped down from 7.7 to 6.5 this am. BP is 90/53, hr 71, spo2 96, RR 18. Asymptomatic, One unit of blood was ordered.
[2024-02-06] MEDS: ProAmatine 5 MG PO ×3 (05:32→23:06)
--- NOTE | 2024-02-06 08:32 | W.SUR.PREOP ---
Pre-Operative Surgical Note
-
D/W patient and daughter, Kim [via phone], this AM.
A decision has been made to proceed to OR for cysto, clot evacuation, fulguration of bleeding.
[2024-02-06] MEDS: MIRALAX PO (08:43)
[2024-02-06] MEDS: COLACE 100 MG PO ×2 (08:44→21:00)
[2024-02-06] MEDS: NON-FORMULARY ITEM 1 APPLIC TOPICAL (08:44)
--- NOTE | 2024-02-06 14:01 | W.IMMPOSTOP ---
Surgical Immed Post Op Note
-
Primary Surgeon: Mahad
Pre-op Diagnosis: Intractable, Radiation-induced Hemorrhagic Cystitis
Post-op Diagnosis: same
Procedure Performed: cysto, clot evacuation, fulguration of bleeding
Anesthesia Type: LMA
Specimen / Cultures: none
Estimated Blood Loss: 3 ml
Complications: no
Operative Findings: sclerotic prostatic fossa with friable neovascularity also involving trigone
finding d/w daughter, Health, immediately post-op
--- NOTE | 2024-02-06 14:08 | CM ---
Addendum entered by Latisha Telles 02/06/24 14:16:
Patient daughter Mariza still interested in SNF/[facility] pending pt/ot update. CM will continue to follow for discharge planning needs.
Original Note:
Patient seen at bedside. Patient states that he plans to go to [facility] but is for a procedure today. CM will update facility and patient may need updated Auth with insurance. CM will reach out to daughter and continue to follow for discharge planning
needs.
Plan; SNF
--- NOTE | 2024-02-06 14:30 | PTCARENOTE ---
Received patient from PACU via bed. AAOx3, no complaints of pain. CBI infusing as ordered. Diet resumed as ordered. Call vaughn in close reach.
[2024-02-06] MEDS: DULCOLAX 10 MG RECTAL (16:46)
--- NOTE | 2024-02-06 18:24 | W.PN.HOSP.TC ---
Addendum entered and electronically signed by Ana Rosa Watson MD 02/06/24 19:58:
I saw and evaluated the patient independently. I reviewed the resident�s note and agree with findings and plan as documented by Dr. Boykin.
GENERAL: chronically ill appearing male in no apparent distress
HEENT: NC/AT
HEART: irreg ireg
LUNGS : clear to auscultation bilaterally
ABDOM: soft, nontender, nondistended, + bowel sounds
EXT: no cyanosis, clubbing, or edema
NEUROLOGIC: grossly intact
: punch colored urine (hematuria) in greenberg bag
Acute hematuria with clot retention--apprec urology--s/p cystoscopy today with sclerotic prostatic fossa with friable neovascularity also involving trigone--s/p CBI--voiding trial failed--
Acute Blood Loss Anemia--due to Hematuria-- received 3 units pRBC in total--repeat HGB 8.9 from 6.5 this AM 02/06/24--follow HGB
Persistent Atrial Fibrillation: - Stable--EKG continues to show atrial fibrillation that is persistent regardless of medication--holding eliquis at this time
Chronic HFpEF: - Stable--Cardiology consult from 12/29/2023 states that the patient has a history of chronic heart failure with preserved ejection fraction. An echo on 08/01/2023 shows an ejection fraction of 60 to 65%--Monitoring patient on telemetry.
Holding lasix for now. Follow Wts daily
Enterococcus bacteremia suspected urinary source: Resolving--Likely due to bladder outlet obstruction from clots--Infectious disease suspects Enterococcus--Continue Ampicillin - Enterococcus faecalis culture showed sensitivity to ampicillin--White
blood cell count is 8.1 on 02/05 and continues to show improvement--Infectious disease consult recommends transition to amoxicillin 500 mg PO q12h at the time of discharge through 02/13/2024
MARIZOL on CKD stage III: Stable and Monitoring--Possibly multifactorial - urinary retention from clot obstruction, infection, prerenal from blood loss--Continue to monitor BUN and creatinine. BUN is stable at 31 and creatinine is 1.8--Erythropoietin
levels ordered -was elevated at 79 on 02/02--appears back to baseline
History of prostate cancer status post XRT--Advised to continue following a urologist outpatient
Borderline Underweight - Stable--Patient has a BMI that has fluctuated around 19.5. His fluctuations in BMI put him approximately in the category of being borderline underweight.
Buttocks stage I pressure (decubitus) ulcer present on admission: - Improving--cont wound care--apprec wound care team
CODE: DNR
Original Note:
Today's Communication/Plan
-
Patient continues to present with persistent hematuria. Urology conducted a cystoscopy with clot evacuation and fulguration of bleeding. The findings during the cystoscopy showed sclerotic prostatic fossa with friable neovascularity also involving
the trigone. These findings were shared with the daughter. Continue to trend H&H as the patient continues to require PRBCs for acute blood loss anemia.
Assessment / Plan
Assessment / Plan
- Acute hematuria with clot retention: Monitoring - Unresolved
Continuous bladder irrigation
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
CBI resumed, voiding trial failed.
Will not resume Eliquis until hematuria is completely resolved.
3 unit of packed RBCs given on this admission.
Continue to trend CBC -patient was 6.5 hemoglobin on 02/05 in the morning and received 1 unit PRBCs.
Cystoscopy with clot evacuation and fulguration of bleeding showed sclerotic prostatic fossa with friable neovascularity also involving the trigone.
- Acute Blood Loss Anemia: Hematuria -unresolved
Blood transfusion given.
Continue to trend CBC -patient was 6.5 hemoglobin on 02/05 in the morning and received 1 unit PRBCs.
Continue to follow labs and assess whether another transfusion is indicated.
- Persistent Atrial Fibrillation: - Stable
EKG continues to show atrial fibrillation that is persistent regardless of medication.
Monitoring patient on telemetry.
- Chronic HFpEF: - Stable
Cardiology consult on 12/29/2023 states that the patient has a history of chronic heart failure with preserved ejection fraction. An echo on 08/01/2023 shows an ejection fraction of 60 to 65%
Monitoring patient on telemetry. Holding lasix for now. Follow Wts daily
-Enterococcus bacteremia suspected urinary source: Resolving
Likely due to bladder outlet obstruction from clots.
Infectious disease suspects Enterococcus
Continue Ampicillin - Enterococcus faecalis culture showed sensitivity to ampicillin
White blood cell count is 8.1 on 02/05 and continues to show improvement
Infectious disease consult recommends transition to amoxicillin 500 mg PO q12h at the time of discharge through 02/13/2024
-MARIZOL on CKD stage III: Stable and Monitoring
Possibly multifactorial - urinary retention from clot obstruction, infection, prerenal from blood loss
Continue to monitor BUN and creatinine. BUN is stable at 31 and creatinine is 1.8
Erythropoietin levels ordered -was elevated at 79 on 02/02
- History of prostate cancer status post XRT:
Advised to continue following a urologist outpatient.
- Borderline Underweight: - Stable
Patient has a BMI that has fluctuated around 19.5. His fluctuations in BMI put him approximately in the category of being borderline underweight.
Current nutrition goals have been met and dietary continues to follow the patient.
- Buttocks stage I pressure (decubitus) ulcer present on admission: - Improving
Patient presented with a buttock stage I pressure ulcer on admission. Silicone border foam placed.
Patient continues to be followed by wound care team.
Wound is healing and is Dry/Intact on 02/03.
CODE: DNR
DW Urology and daughter.
Anticipated Discharge: 24 - 48 hours
Subjective/Interval History
-
Date of Service: February 06, 2024
Met with patient at the bedside. Patient is calm and pleasant in discussion. He feels the same as he did yesterday but worries that his hematuria is not improving. He politely voiced disappointment that the trial to see him normally urinate
without a catheter failed. Patient hopes that his upcoming cystoscopy gives him benefit.
Objective Data
-
Labs:
Laboratory Results
02/06/24
18:01
Hgb Pending
Hct Pending
Vital Signs:
Vital Signs
Temp Pulse Resp BP Pulse Ox
97.5 F 79 20 98/58 91
02/06/24 15:40 02/06/24 15:40 02/06/24 15:40 02/06/24 15:40 02/06/24 15:40
I&O
02/05/24 02/06/24 02/07/24
06:59 06:59 06:59
Intake Total 820 / 820 0 / 0 250 / 250
Output Total 2430 / 2430 1370 / 1370 2134 / 2134
Balance -1610 / -1610 -1370 / -1370 -1885 / -1885
Review of Systems
-
History Source: Patient
All other systems: Reviewed and negative
Constitutional: Reports No Symptoms
EENT: Reports No Symptoms Reported
Respiratory: Reports No Symptoms
Cardiac: Reports No Symptoms
Abdomen/GI: Reports No Symptoms
Breast: Reports No Symptoms
Genitourinary: Reports Bleeding
Musculoskeletal: Reports No Symptoms
Skin: Reports No Symptoms
Neuro: Reports No Symptoms
Hematologic / Lymphatic: Reports No Symptoms
Allergy / Immunology: Reports No Symptoms
Physical Exam
-
General: Comfortable
HEENT: Normocephalic, Atraumatic and Moist Mucous Membranes
Respiratory: Clear to Auscultation
Cardiac: Irregular Rhythm
Breast: Deferred by me
GI: Soft, Nontender, Nondistended and Normal Bowel Sounds
Rectal: Deferred by Provider
Genito-urinary: Deferred by me
Musculoskeletal: No Clubbing, No Cyanosis and No Edema
Skin: Warm and Dry
Neuro: Nonfocal/Grossly Intact
Psych: Calm
[2024-02-06 18:56] LABS: Hematocrit 26.8 % (39.0-52.0); Hemoglobin 8.9 g/dL (13.0-18.0)
[2024-02-06] MEDS: TOPROL XL 12.5 MG PO (20:59)
[2024-02-06] MEDS: PACERONE 200 MG PO (20:59)
[2024-02-06 21:59] LABS: Urine Albumin Negative (Neg - Trace); Urine Bilirubin Negative (Negative); Urine Character Clear (Clear); Urine Color Straw; Urine Glucose Negative (Negative); Urine Ketone Negative (Negative); Urine Leukocyte Negative (Negative); Urine Nitrite Negative (Negative); Urine Occult Blood 4+ (Negative); Urine Specific Gravity 1.005 (<1.030); Urine Urobilinogen Negative (Neg - 1+)
[2024-02-06 22:11] LABS: Urine Red Blood Cell 60-70 /HPF (0-2)
[2024-02-07] VITALS (8 sets, daily range): BP systolic 83–135; BP diastolic 48–62; PULSE 67; O2SAT 95
[2024-02-07 05:16] LABS: Hematocrit 24.7 % (39.0-52.0); Mean Corp Hgb Conc. 32.4 g/dL (33.0-37.0); Mean Corpuscular Hgb 31.1 pg (27.0-31.0); Mean Corpuscular Volume 96.1 fL (80.0-94.0); Mean Platelet Volume 9.5 fL (7.4-10.4); Platelet Count 139 10^3/uL (130-400); Red Blood Cell Count 2.57 10^6/uL (4.70-6.10); Red Cell Dist. Width 18.7 % (11.5-14.5); White Blood Cell Count 7.8 10^3/uL (4.8-10.8)
[2024-02-07] MEDS: AMPICILLIN 108 MG IV ×3 (05:34→21:51)
[2024-02-07 05:46] LABS: ALT (SGPT) 35 U/L (0-50); AST (SGOT) 41 U/L (17-59); Albumin 2.7 g/dl (3.5-5.0); Alkaline Phosphatase 100 U/L (38-126); Blood Urea Nitrogen 35 mg/dl (9-20); Calcium 7.8 mg/dl (8.4-10.2); Carbon Dioxide 26 mmol/L (22-30); Chloride 102 mmol/L (98-107); Estimated Creatinine Clearance 22 ml/min; Glucose 120 mg/dl (70-99); Potassium 5.5 mmol/L (3.5-5.1); Sodium 132 mmol/L (135-145); Total Bilirubin 0.6 mg/dl (0.2-1.3); Total Protein 5.5 g/dl (6.3-8.2); eGFR 31.31
--- NOTE | 2024-02-07 07:54 | W.PN.URO.CBU ---
Today's Communication / Plan
-
greenberg removal/TOV
Assessment / Plan
-
Acute urinary retention w/ clot obstruction - significant hematuria resolved w/ CBI, recurrence 02/02
Radiation cystitis
H/o prostate cancer s/p XRT
MARIZOL on CKD III - improving
hematuria has abated
Diagnosis
-
Date of Service: February 07, 2024
-
Post Op Day: 1 s/p cysto + fulguration
Patient Diagnosis:
Radiation-induced hemorrhagic cystitis
Acute urinary retention w/ clot obstruction
H/o prostate cancer s/p XRT
MARIZOL on CKD III
Subjective
-
comfortable
Objective
-
Vital Signs
Temp Pulse Resp BP Pulse Ox
97.8 F 66 16 99/58 98
02/07/24 03:05 02/07/24 03:05 02/07/24 03:05 02/07/24 03:05 02/07/24 03:05
Intake and Output
02/06/24 02/07/24 02/08/24
06:59 06:59 06:59
Intake Total 0 / 0 2560 / 2560
Output Total 1370 / 1370 4185 / 4185 1650 / 1650
Balance -1370 / -1370 -1625 / -1625 -1650 / -1650
Intake:
Oral fluids 1620 / 1620
IV piggybacks 440 / 440
Blood products 250 / 250
Blood Product Amount Infused ( 0 / 0 250 / 250
mL)
Packed Rbc Leukoreduced Unit 0 / 0 250 / 250
[id number]
Output:
Straight cath output 100 / 100
True Urine Output from CBI 1100 / 1100 4025 / 4025 1650 / 1650
True urine output from hand 170 / 170 160 / 160
irrigation
Laboratory Results
02/07/24 04:18
02/07/24 04:18
Physical Exam
-
General - well developed, well nourished, no acute distress
Genitalia - pale peach-colored outflow with drip-rate CBI
[2024-02-07] MEDS: ProAmatine 5 MG PO ×3 (08:21→23:14)
[2024-02-07] MEDS: COLACE 100 MG PO ×2 (08:22→19:47)
[2024-02-07] MEDS: MIRALAX 17 GRAMS PO (08:22)
[2024-02-07] MEDS: NON-FORMULARY ITEM 1 APPLIC TOPICAL (08:27)
--- NOTE | 2024-02-07 12:15 | W.PN.ID1 ---
Date of Service
Date of Service: February 07, 2024
Today's Communication
At time of discharge, transition to amoxicillin 500mg po q12 through 02/13/24.
Assessment / Plan
# E. faecalis bacteremia due to bladder outlet obstruction from clot retention
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
# MARIZOL on CKD3, improving
# Fever and leukocytosis resolved
- Repeat bcx's x 2 neg to date
- Continue IV ampicillin (d8).
- At time of discharge, transition to amoxicillin 500mg po q12 through 02/13/24.
#Conditions prior to admission
Permanent atrial fibrillation on Eliquis
CKD 3
Severe mitral regurgitation
Cardiomyopathy s/p ICD placement
Essential tremor
Prostate cancer status post XRT
Radiation induced hemorrhagic cystitis
Right hip replacement
Paraesophageal hernia and gastric volvulus repair
Chief Complaint
-: UTI and Bacteremia
Subjective / Review of Systems
Jones just removed, on voiding trial.
Vital Signs / Physical Exam
Vital Signs
Vital Signs
Temp Pulse Resp BP Pulse Ox
98.3 F 72 16 91/57 97
02/07/24 11:00 02/07/24 11:00 02/07/24 11:00 02/07/24 11:00 02/07/24 11:00
Physical Exam
Constitutional: No Acute Distress and Comfortable
Gastrointestinal: Soft, Non Tender, Non Distended and Normal Bowel Sounds
Genito-Urinary: Negative CVA Tenderness
Neurological: AO x 3
Objective Data
Lab Data
Lab Results
02/07/24 04:18
02/07/24 04:18
PT 15.5 Sec (11.4-14.6) H 02/06/24 04:21
INR 1.25 02/06/24 04:21
APTT 34.5 Sec (23.4-35.0) 02/06/24 04:21
Estimated Creat Clear 22 ml/min 02/07/24 04:18
Lactic Acid 1.6 mmol/L (0.7-2.0) 02/01/24 11:03
Total Bilirubin 0.6 mg/dl (0.2-1.3) 02/07/24 04:18
AST 41 U/L (17-59) 02/07/24 04:18
ALT 35 U/L (0-50) 02/07/24 04:18
Alkaline Phosphatase 100 U/L (38-126) 02/07/24 04:18
Most recent labs reviewed.
Micro Results:
02/02/24 10:20 Blood Culture - Final
Blood/Venous No Growth - Final Report
02/01/24 04:23 Blood Culture - Final
Blood/Venous No Growth - Final Report
01/30/24 16:52 Blood Culture - Final
Blood/Venous Enterococcus faecalis
Gram Stain - Final
01/30/24 16:57 Blood Culture - Final
Blood/Venous Enterococcus faecalis
Gram Stain - Final
--- NOTE | 2024-02-07 13:53 | W.PN.HOSP.TC ---
Addendum entered and electronically signed by Ana Rosa Watson MD 02/07/24 17:51:
I saw and evaluated the patient independently. I reviewed the resident�s note and agree with findings and plan as documented by Dr. Boykin.
GENERAL: chronically ill appearing male in no apparent distress
HEENT: NC/AT
HEART: irreg ireg
LUNGS : clear to auscultation bilaterally
ABDOM: soft, nontender, nondistended, + bowel sounds
EXT: no cyanosis, clubbing, or edema
NEUROLOGIC: grossly intact
: greenberg removed
Acute hematuria with clot retention--apprec urology--s/p cystoscopy 02/06/24 with sclerotic prostatic fossa with friable neovascularity also involving trigone--s/p CBI--voiding trial failed--retrying again 02/06
Acute Blood Loss Anemia--due to Hematuria-- received 3 units pRBC in total--repeat HGB 8.0--follow HGB
Persistent Atrial Fibrillation: - Stable--EKG continues to show atrial fibrillation that is persistent regardless of medication--holding eliquis at this time, restart as per urology
Chronic HFpEF: - Stable--Cardiology consult from 12/29/2023 states that the patient has a history of chronic heart failure with preserved ejection fraction. An echo on 08/01/2023 shows an ejection fraction of 60 to 65%--Monitoring patient on telemetry.
Holding lasix for now. Follow Wts daily
Enterococcus bacteremia suspected urinary source: Resolving--Likely due to bladder outlet obstruction from clots--Infectious disease suspects Enterococcus--Continue Ampicillin - Enterococcus faecalis culture showed sensitivity to ampicillin--White
blood cell count is 8.1 on 02/05 and continues to show improvement--Infectious disease consult recommends transition to amoxicillin 500 mg PO q12h at the time of discharge through 02/13/2024
MARIZOL on CKD stage III: Stable and Monitoring--Possibly multifactorial - urinary retention from clot obstruction, infection, prerenal from blood loss--Continue to monitor BUN and creatinine. BUN is stable at 31 and creatinine is 1.8 rising to
2.0--Erythropoietin levels ordered -was elevated at 79 on 02/02--consult renal--apprec input
History of prostate cancer status post XRT--Advised to continue following urologist outpatient
Borderline Underweight - Stable--Patient has a BMI that has fluctuated around 19.5. His fluctuations in BMI put him approximately in the category of being borderline underweight.
Buttocks stage I pressure (decubitus) ulcer present on admission: - Improving--cont wound care--apprec wound care team
CODE: DNR
Original Note:
Today's Communication/Plan
-
Voiding trial reinitiated with Greenberg removal. Nephrology consult ordered for rising creatinine level. Continue to trend H&H. PT/OT met with patient and recommended SNF upon discharge. Will move forward with discharge planning if patient succeeds
in voiding trial and if medically cleared by other consulting providers.
Assessment / Plan
Assessment / Plan
- Acute hematuria with clot retention: Monitoring - Unresolved
Continuous bladder irrigation
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
CBI discontinued, voiding trial attempted
3 units of packed RBCs given during this hospital stay.
Continue to trend CBC -patient is 8 Hgb
Cystoscopy with clot evacuation and fulguration of bleeding showed sclerotic prostatic fossa with friable neovascularity also involving the trigone.
- Acute Blood Loss Anemia: Hematuria -unresolved
Blood transfusion given.
Continue to trend CBC -patient was 6.5 hemoglobin on 02/05 in the morning and received 1 unit PRBCs. Currently Hgb is 8.0 on 02/06
Continue to follow labs and assess whether another transfusion is indicated.
- Persistent Atrial Fibrillation: - Stable
EKG continues to show atrial fibrillation that is persistent regardless of medication.
Monitoring patient on telemetry.
- Chronic HFpEF: - Stable
Cardiology consult on 12/29/2023 states that the patient has a history of chronic heart failure with preserved ejection fraction. An echo on 08/01/2023 shows an ejection fraction of 60 to 65%
Monitoring patient on telemetry. Holding lasix for now. Follow Wts daily
-Enterococcus bacteremia suspected urinary source: Resolving
Likely due to bladder outlet obstruction from clots.
Infectious disease suspects Enterococcus
Continue Ampicillin - Enterococcus faecalis culture showed sensitivity to ampicillin
White blood cell count is 7.8 on 02/06 and continues to show improvement
Infectious disease consult recommends transition to amoxicillin 500 mg PO q12h at the time of discharge through 02/13/2024
-MARIZOL on CKD stage III: Monitoring
Possibly multifactorial - urinary retention from clot obstruction, infection, prerenal from blood loss
Continue to monitor BUN and creatinine. BUN is stable at 35 and creatinine is 2.0 on 02/06
Hyperkalemia: Potassium was found to be 5.5 on 02/06
Erythropoietin levels ordered -was elevated at 79 on 02/02
Nephrology consult ordered
- History of prostate cancer status post XRT:
Advised to continue following a urologist outpatient.
- Borderline Underweight: - Stable
Patient has a BMI that has fluctuated around 19.5. His fluctuations in BMI put him approximately in the category of being borderline underweight.
Current nutrition goals have been met and dietary continues to follow the patient.
- Buttocks stage I pressure (decubitus) ulcer present on admission: - Improving
Patient presented with a buttock stage I pressure ulcer on admission. Silicone border foam placed.
Patient continues to be followed by wound care team.
Wound is healing and is Dry/Intact on 02/03.
-Lower limb weakness - Deconditioning: Monitoring
PT/OT consult ordered
Assessment from PT/OT stated that the patient required assistance for functional transfers and mobility, limited by deconditioning, decreased endurance, impaired balance, generalized weakness, fatigue. Recommended skilled rehab at discharge. They
continue to follow
CODE: DNR
DW Urology and daughter.
Anticipated Discharge: Within 24 hours
Subjective/Interval History
-
Date of Service: February 07, 2024
Met with patient at the bedside. He states that he is hopeful that today's voiding trial is successful as he finds catheter removal to be painful and irritating. He is pleasant in conversation and states that his daughter will possibly come today
to visit him and he is excited about having some company. He states that he feels weak and hopes to get a little exercise.
Objective Data
-
Labs:
Laboratory Results
02/07/24
04:18
WBC 7.8
Hgb 8.0 L
Hct 24.7 L
Plt Count 139
Sodium 132 L
Potassium 5.5 H
Chloride 102
Carbon Dioxide 26
BUN 35 H
Creatinine 2.0 H
Glucose 120 H
Calcium 7.8 L
Total Bilirubin 0.6
AST 41
ALT 35
Alkaline Phosphatase 100
Vital Signs:
Vital Signs
Temp Pulse Resp BP Pulse Ox
98.3 F 72 16 91/57 97
02/07/24 11:00 02/07/24 11:00 02/07/24 11:00 02/07/24 11:00 02/07/24 11:00
I&O
02/06/24 02/07/24 02/08/24
06:59 06:59 06:59
Intake Total 0 / 0 2560 / 2560
Output Total 1370 / 1370 4185 / 4185 1650 / 1650
Balance -1370 / -1370 -1625 / -1625 -1650 / -1650
Review of Systems
-
History Source: Patient
Constitutional: Reports No Symptoms
EENT: Reports No Symptoms Reported
Respiratory: Reports No Symptoms
Cardiac: Reports No Symptoms
Abdomen/GI: Reports No Symptoms
Breast: Reports No Symptoms
Genitourinary: Reports Bleeding
Musculoskeletal: Reports Muscle Weakness
Skin: Reports No Symptoms
Neuro: Reports No Symptoms
Endocrine: Reports No Symptoms
Hematologic / Lymphatic: Reports No Symptoms
Allergy / Immunology: Reports No Symptoms
Physical Exam
-
General: Well Developed, No Apparent Distress and Comfortable
HEENT: Normocephalic, Atraumatic and Moist Mucous Membranes
Respiratory: Clear to Auscultation
Cardiac: S1/S2 and Irregular Rhythm
Breast: Deferred by me
GI: Soft, Nontender, Nondistended and Normal Bowel Sounds
Rectal: Deferred by Provider
Genito-urinary: Deferred by me
Musculoskeletal: No Clubbing, No Cyanosis and No Edema
Skin: Warm and Dry
Neuro: Nonfocal/Grossly Intact
Psych: Calm
--- NOTE | 2024-02-07 17:18 | W.CON.NEPH ---
Consultation
-
Date/Time Consultation Requested: 02/07/24 4p
Date/Time Consultation Performed: 02/07/24 5p
Requesting Provider: Dr. Boykin
Performing Provider: Dr Martinez
Reason for Consultation: MARIZOL
Medical History
-
Chief Complaint: Urinary retention
History of Present Illness:
This is a 89-year-old gentleman who has prostate cancer who underwent radiation therapy and developed radiation cystitis with hemorrhage. He has had episodes of acute urinary retention with clot obstruction. He was admitted about 1 week ago after
development of intermittent hematuria with abdominal pain. He was found to have urinary retention and was placed on continuous bladder irrigation. CBI was discontinued 2 days later but retention recurred and was restarted. Today the Jones
catheter was removed around noon time. He did void a small amount not long ago which was nonbloody. However, his creatinine has risen up to 2.0 from a low of 1.5 during his hospitalization. He does have atrial fibrillation on amiodarone and
Eliquis therapy which is rate controlled and he also has hypotension on chronic midodrine therapy [id number].
Past Medical History
Prostate cancer, status post radiation, atrial fibrillation, mitral regurgitation, CKD 3B, thrombocytopenia, paraesophageal hernia and gastric volvulus repair, right hip replacement
Social History
Tobacco: Non-Smoker
Alcohol: None
Family History
Family History: Not Pertinent
Allergies / Home Medications
Allergy/AdvReac Type Severity Reaction Status Date / Time
shellfish derived Allergy Nausea Verified 12/26/23 14:27
�Medication �Instructions �Recorded �Confirmed �Type
amiodarone 200 mg tablet (Pacerone) 200 mg PO HS Arrhythmia 12/26/23 01/30/24 History
metoprolol succinate 25 mg 12.5 mg (1/2 x 25 mg) PO HS Blood 12/30/23 01/30/24 Rx
tablet,extended release 24 hr Pressure #60 tabs
apixaban 2.5 mg tablet (Eliquis) 2.5 mg PO BID Blood Clot 01/30/24 01/30/24 History
Prevention/Tx
clobetasol 0.05 % scalp solution 1 applic topical DAILY scalp 01/30/24 01/30/24 History
furosemide 20 mg tablet 20 mg PO MOWEFR PRN wt gain/fluid 01/30/24 01/30/24 History
retention
furosemide 40 mg tablet 40 mg PO DAILY Fluid 01/30/24 01/30/24 History
Retention/Swelling
amoxicillin 500 mg capsule 500 mg PO BID #1 cap 02/04/24 Rx
midodrine 5 mg tablet 5 mg PO Q8 #1 tab 02/04/24 Rx
Review of Systems
-
No pain. No shortness of breath. No diarrhea. Denies any issues with urine output.
All other systems: Negative unless noted
Physical Exam
Vital Signs
Vital Signs
Temp Pulse Resp BP Pulse Ox
98.7 F 72 16 95/53 98
02/07/24 15:39 02/07/24 15:39 02/07/24 15:39 02/07/24 15:39 02/07/24 15:39
Lab Results
WBC 7.8 10^3/uL (4.8-10.8) 02/07/24 04:18
RBC 2.57 10^6/uL (4.70-6.10) L 02/07/24 04:18
Hgb 8.0 g/dL (13.0-18.0) L 02/07/24 04:18
Hct 24.7 % (39.0-52.0) L 02/07/24 04:18
Plt Count 139 10^3/uL (130-400) 02/07/24 04:18
Sodium 132 mmol/L (135-145) L 02/07/24 04:18
Potassium 5.5 mmol/L (3.5-5.1) H 02/07/24 04:18
Chloride 102 mmol/L (98-107) 02/07/24 04:18
Carbon Dioxide 26 mmol/L (22-30) 02/07/24 04:18
BUN 35 mg/dl (9-20) H 02/07/24 04:18
Creatinine 2.0 mg/dL (0.7-1.3) H 02/07/24 04:18
eGFR 31.31 02/07/24 04:18
Glucose 120 mg/dl (70-99) H 02/07/24 04:18
Calcium 7.8 mg/dl (8.4-10.2) L 02/07/24 04:18
Albumin 2.7 g/dl (3.5-5.0) L 02/07/24 04:18
Physical Exam
Patient is awake alert oriented and in no distress. Mood and affect were pleasant, insight and judgment were good. Pupils are equal round and reactive to light, extraocular movements are intact, sclera were anicteric. Hearing was normal, ears and
nose are intact. Oropharynx was clear. Neck was supple with trachea midline and no thyromegaly. Heart was regular rate and rhythm without rubs. Lower extremities without edema. Lungs were clear to auscultation bilaterally and with normal
excursion. Abdomen was soft, nontender, with normal active bowel sounds, and no hepatosplenomegaly. Skin was without rash and with normal turgor.
Data Reviewed
-
Ultrasound: Report Reviewed by me (Renal ultrasound on February 01, 2024 shows bilateral renal cyst no hydronephrosis right kidney 10.6 cm, left kidney 11.4 cm)
Medical Tests (Nuc Med, Echo etc): Report Reviewed by me (Echocardiogram on February 01, 2024 shows ejection fraction 55%, severe mitral regurgitation, moderate tricuspid regurgitation)
Labs: Labs Reviewed by me (Sodium 132, potassium 5.5, carbon dioxide 26, BUN 35, creatinine 2.0, calcium 7.8, hemoglobin 8.0)
Old Records: Reviewed (On January 05, 2024 creatinine 1.7, potassium 4.8)
Assessment/Plan
-
Assessment
Prostate cancer status post radiation, hemorrhagic cystitis
Recent urinary retention
Acute kidney injury
CKD 3B, 1.7
Hyperkalemia
Hyponatremia
Atrial fibrillation
Chronic hypotension on midodrine
Plan
Check postvoid residual
1 dose of Lokelma
Follow BMP
No recent events including medications and studies have been noted that would result in his acute kidney injury
If blood pressure remains low, midodrine may be titrated upwards.
Check urine studies
[2024-02-07] MEDS: LOKELMA 10 GRAM PO (17:42)
[2024-02-07] MEDS: TOPROL XL PO (19:48)
[2024-02-07] MEDS: PACERONE 200 MG PO (19:48)
--- NOTE | 2024-02-08 02:57 | DOWNTIME ---
There was a [employer] Downtime on 02/08/2024 from 0100 to 02/08/2024 at 0255. Downtime documentation of patient's care, including medication administrations, has been reconciled in the electronic record per guidelines. Refer to the
patient's paper chart under the miscellaneous tab to see printed paper medication records and downtime forms.
[2024-02-08 03:02] VITALS: BP 96/65
[2024-02-08] MEDS: AMPICILLIN 108 MG IV (05:32)
[2024-02-08 07:23] LABS: ALT (SGPT) 40 U/L (0-50); AST (SGOT) 47 U/L (17-59); Albumin 2.6 g/dl (3.5-5.0); Alkaline Phosphatase 117 U/L (38-126); Blood Urea Nitrogen 44 mg/dl (9-20); Calcium 7.7 mg/dl (8.4-10.2); Carbon Dioxide 25 mmol/L (22-30); Chloride 101 mmol/L (98-107); Estimated Creatinine Clearance 16 ml/min; Glucose 83 mg/dl (70-99); Potassium 5.1 mmol/L (3.5-5.1); Sodium 132 mmol/L (135-145); Total Bilirubin 0.6 mg/dl (0.2-1.3); Total Protein 5.5 g/dl (6.3-8.2); eGFR 20.91
[2024-02-08 07:26] LABS: Hematocrit 23.1 % (39.0-52.0); Hemoglobin 7.5 g/dL (13.0-18.0); Mean Corp Hgb Conc. 32.5 g/dL (33.0-37.0); Mean Corpuscular Hgb 31.3 pg (27.0-31.0); Mean Corpuscular Volume 96.3 fL (80.0-94.0); Mean Platelet Volume 9.8 fL (7.4-10.4); Platelet Count 155 10^3/uL (130-400); Red Cell Dist. Width 19.1 % (11.5-14.5); White Blood Cell Count 9.6 10^3/uL (4.8-10.8)
[2024-02-08 07:27] VITALS: BP 92/58
[2024-02-08] MEDS: ProAmatine 5 MG PO ×3 (08:33→23:09)
[2024-02-08] MEDS: MIRALAX 17 GRAMS PO (08:34)
[2024-02-08] MEDS: NON-FORMULARY ITEM 1 APPLIC TOPICAL (08:34)
[2024-02-08] MEDS: COLACE 100 MG PO (08:34)
[2024-02-08] MEDS: TYLENOL 650 MG PO ×2 (08:37→19:20)
--- NOTE | 2024-02-08 08:53 | W.PN.HOSP.TC ---
Addendum entered and electronically signed by Ana Rosa Watson MD 02/08/24 19:17:
I saw and evaluated the patient independently. I reviewed the resident�s note and agree with findings and plan as documented by Dr. Boykin.
GENERAL: chronically ill appearing male in no apparent distress
HEENT: NC/AT
HEART: irreg ireg
LUNGS : clear to auscultation bilaterally
ABDOM: soft, nontender, nondistended, + bowel sounds
EXT: no cyanosis, clubbing, or edema
NEUROLOGIC: grossly intact
: greenberg removed--bladder distended
Acute hematuria with clot retention--apprec urology--s/p cystoscopy 02/06/24 with sclerotic prostatic fossa with friable neovascularity also involving trigone--s/p CBI--voiding trial failed x 2 with rising creat--greenberg replaced--would d/c with greenberg
Acute Blood Loss Anemia--due to Hematuria-- received 3 units pRBC in total--repeat HGB 7.5--follow
Persistent Atrial Fibrillation - Stable--EKG continues to show atrial fibrillation that is persistent regardless of medication--holding eliquis at this time, restart as per urology
Chronic HFpEF - Stable--Cardiology consult from 12/29/2023 states that the patient has a history of chronic heart failure with preserved ejection fraction. An echo on 08/01/2023 shows an ejection fraction of 60 to 65%-- Follow Wts daily
Enterococcus bacteremia suspected urinary source: Resolving--Likely due to bladder outlet obstruction from clots--Infectious disease suspects Enterococcus--Continue Ampicillin - Enterococcus faecalis culture showed sensitivity to ampicillin--White
blood cell count is 8.1 on 02/05 and continues to show improvement--Infectious disease consult recommends transition to amoxicillin 500 mg PO q12h at the time of discharge through 02/13/2024
MARIZOL on CKD stage III: Stable and Monitoring--Possibly multifactorial - urinary retention from clot obstruction, infection, prerenal from blood loss--Continue to monitor BUN and creatinine. BUN is stable at 31 and creatinine rising to 2.8--apprec
renal--with lower BP--started IVF x 1 L--greenberg replaced
History of prostate cancer status post XRT--Advised to continue following urologist outpatient
Borderline Underweight - Stable--Patient has a BMI that has fluctuated around 19.5. His fluctuations in BMI put him approximately in the category of being borderline underweight.
Buttocks stage I pressure (decubitus) ulcer present on admission: - Improving--cont wound care--apprec wound care team
CODE: DNR
Original Note:
Today's Communication/Plan
-
Patient has been transitioned from IV ampicillin to amoxicillin 500 mg p.o. every 12 hours through 02/13/2024. Nephrology recommended checking renal/bladder ultrasound and if hydroureter is detected the patient may need percutaneous nephrostomies.
Continue to follow BMP and check urine studies.
Assessment / Plan
Assessment / Plan
- Acute hematuria with clot retention: Monitoring - Unresolved
Continuous bladder irrigation
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
CBI discontinued, voiding trial attempted
3 units of packed RBCs given during this hospital stay.
Continue to trend CBC -patient is 7.5 Hgb
Cystoscopy with clot evacuation and fulguration of bleeding showed sclerotic prostatic fossa with friable neovascularity also involving the trigone.
- Acute Blood Loss Anemia: Hematuria -unresolved
Blood transfusion given.
Continue to trend CBC -patient was 6.5 hemoglobin on 02/05 in the morning and received 1 unit PRBCs. Currently Hgb is 7.5 on 02/07
Continue to follow labs and assess whether another transfusion is indicated.
- Persistent Atrial Fibrillation: - Stable
EKG continues to show atrial fibrillation that is persistent regardless of medication.
Monitoring patient on telemetry.
- Chronic HFpEF: - Stable
Cardiology consult on 12/29/2023 states that the patient has a history of chronic heart failure with preserved ejection fraction. An echo on 08/01/2023 shows an ejection fraction of 60 to 65%
Monitoring patient on telemetry. Holding lasix for now. Follow Wts daily
-Enterococcus bacteremia suspected urinary source: Resolving
Likely due to bladder outlet obstruction from clots.
Infectious disease suspects Enterococcus
Continue Ampicillin - Enterococcus faecalis culture showed sensitivity to ampicillin
White blood cell count is 9.6 on 02/07
Infectious disease has transitioned antibiotic treatment to amoxicillin 500 mg PO q12h through 02/13/2024
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
Possibly multifactorial - urinary retention from clot obstruction, infection, prerenal from blood loss
Continue to monitor BUN and creatinine. BUN is 44 and creatinine is 2.8 on 02/07
Hyperkalemia: Potassium was found to be 5.5 on 02/06 -1 dose of Lokelma given -potassium is 5.1 on 02/07 -resolved
Erythropoietin levels ordered -was elevated at 79 on 02/02
Nephrology consult ordered -recommended checking a renal/bladder ultrasound. If hydroureter, may need percutaneous nephrostomies. -They recommend following BMP and continuing to check urine studies.
- History of prostate cancer status post XRT:
Advised to continue following a urologist outpatient.
- Borderline Underweight: - Stable
Patient has a BMI that has fluctuated around 19.5. His fluctuations in BMI put him approximately in the category of being borderline underweight.
Current nutrition goals have been met and dietary continues to follow the patient.
- Buttocks stage I pressure (decubitus) ulcer present on admission: - Improving
Patient presented with a buttock stage I pressure ulcer on admission. Silicone border foam placed.
Patient continues to be followed by wound care team.
Wound is healing and is Dry/Intact on 02/03.
-Lower limb weakness - Deconditioning: Monitoring
PT/OT consult ordered
Assessment from PT/OT stated that the patient required assistance for functional transfers and mobility, limited by deconditioning, decreased endurance, impaired balance, generalized weakness, fatigue. Recommended skilled rehab at discharge. They
continue to follow
- Hypotensiom: Monitoring
Patient's blood pressure was 88/53 on 02/07. IV fluids given. Continue to monitor
CODE: DNR
[facility] Urology and daughter.
Anticipated Discharge: 24 - 48 hours
Subjective/Interval History
-
Date of Service: February 08, 2024
Met with patient at the bedside. He is in good spirits but continues to be worried about his inability to void naturally without catheterization. He did not void at all last night but hopes that he will be able to after drinking some tea. He
spent some time talking about the weather in [place] and how rainy and muggy it is at times.
Objective Data
-
Labs:
Laboratory Results
02/08/24
05:34
WBC 9.6
Hgb 7.5 L
Hct 23.1 L
Plt Count 155
Sodium 132 L
Potassium 5.1
Chloride 101
Carbon Dioxide 25
BUN 44 H
Creatinine 2.8 H
Glucose 83
Calcium 7.7 L
Total Bilirubin 0.6
AST 47
ALT 40
Alkaline Phosphatase 117
Vital Signs:
Vital Signs
Temp Pulse Resp BP Pulse Ox
97.5 F 74 18 92/58 96
02/08/24 07:27 02/08/24 08:33 02/08/24 07:27 02/08/24 08:33 02/08/24 07:27
I&O
02/07/24 02/08/24 02/09/24
06:59 06:59 06:59
Intake Total 2560 / 2560 1440 / 1440
Output Total 4185 / 4185 1960 / 1960
Balance -1625 / -1625 -520 / -520
Review of Systems
-
History Source: Patient
Constitutional: Reports No Symptoms
EENT: Reports No Symptoms Reported
Respiratory: Reports No Symptoms
Cardiac: Reports No Symptoms
Abdomen/GI: Reports No Symptoms
Breast: Reports No Symptoms
Genitourinary: Reports Difficulty Voiding
Musculoskeletal: Reports No Symptoms
Skin: Reports No Symptoms
Neuro: Reports No Symptoms
Endocrine: Reports No Symptoms
Hematologic / Lymphatic: Reports No Symptoms
Allergy / Immunology: Reports No Symptoms
Physical Exam
-
General: Well Developed, Well Nourished and No Apparent Distress
HEENT: Normocephalic, Atraumatic and Moist Mucous Membranes
Respiratory: Clear to Auscultation
Cardiac: Irregular Rhythm
Breast: Deferred by me
GI: Soft, Nontender, Nondistended and Normal Bowel Sounds
Rectal: Deferred by Provider
Genito-urinary: Deferred by me
Musculoskeletal: No Clubbing, No Cyanosis and No Edema
Skin: Warm and Dry
Neuro: Awake and Nonfocal/Grossly Intact
[2024-02-08] MEDS: DULCOLAX 10 MG RECTAL (09:27)
--- NOTE | 2024-02-08 10:43 | W.PN.NEPH.PH ---
Today's Communication / Plan
-
US
Assessment/Plan
-
Assessment
Prostate cancer status post radiation, hemorrhagic cystitis
Recent urinary retention
Acute kidney injury
CKD 3B, 1.7
Hyperkalemia
Hyponatremia
Atrial fibrillation
Chronic hypotension on midodrine
Plan
check renal/bladder US. If hydro may need percutaneous nephrostomies
follow BMP
check urine studies
-
-
Date of Service: February 08, 2024
CC / HPI / ROS
-
Chief Complaint:
MARIZOL
History of Present Illness:
MARIZOL/Cr up to 2.8
BP stable
PVR 375ml
K controlled
Review of Systems:
no CP/SOB
he says he feels he is not emptying bladder well
Labs
-
Labs:
WBC 9.6 10^3/uL (4.8-10.8) 02/08/24 05:34
RBC 2.40 10^6/uL (4.70-6.10) L 02/08/24 05:34
Hgb 7.5 g/dL (13.0-18.0) L 02/08/24 05:34
Hct 23.1 % (39.0-52.0) L 02/08/24 05:34
Plt Count 155 10^3/uL (130-400) 02/08/24 05:34
Sodium 132 mmol/L (135-145) L 02/08/24 05:34
Potassium 5.1 mmol/L (3.5-5.1) 02/08/24 05:34
Chloride 101 mmol/L (98-107) 02/08/24 05:34
Carbon Dioxide 25 mmol/L (22-30) 02/08/24 05:34
BUN 44 mg/dl (9-20) H 02/08/24 05:34
Creatinine 2.8 mg/dL (0.7-1.3) H 02/08/24 05:34
eGFR 20.91 02/08/24 05:34
Glucose 83 mg/dl (70-99) 02/08/24 05:34
Calcium 7.7 mg/dl (8.4-10.2) L 02/08/24 05:34
Albumin 2.6 g/dl (3.5-5.0) L 02/08/24 05:34
Physical Exam
-
Vital Signs:
Vital Signs
Temp Pulse Resp BP Pulse Ox
97.5 F 74 18 92/58 96
02/08/24 07:27 02/08/24 08:33 02/08/24 07:27 02/08/24 08:33 02/08/24 07:27
Cardiovascular:: Regular rate and rhythm
Respiratory:: Bilateral: Coarse
Lung Excursion:: Normal
Abdomen:: Nontender and Soft
Bowel Sounds:: Normal
Extremity Edema:: +1: Bilateral:
[2024-02-08 10:44] VITALS: BMI 20.4
[2024-02-08 11:03] VITALS: BP 88/53
--- NOTE | 2024-02-08 14:06 | W.PN.ID1 ---
Date of Service
Date of Service: February 08, 2024
Today's Communication
- Transition IV ampicillin to amoxicillin 500mg po q12 through 02/13/24.
Assessment / Plan
# E. faecalis bacteremia due to bladder outlet obstruction from clot retention
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
- Transition IV ampicillin to amoxicillin 500mg po q12 through 02/13/24.
# MARIZOL on CKD3 worse
#Conditions prior to admission
Permanent atrial fibrillation on Eliquis
CKD 3
Severe mitral regurgitation
Cardiomyopathy s/p ICD placement
Essential tremor
Prostate cancer status post XRT
Radiation induced hemorrhagic cystitis
Right hip replacement
Paraesophageal hernia and gastric volvulus repair
Chief Complaint
-: UTI and Bacteremia
Subjective / Review of Systems
Failed voiding trial.
Vital Signs / Physical Exam
Vital Signs
Vital Signs
Temp Pulse Resp BP Pulse Ox
98.2 F 67 18 88/53 98
02/08/24 11:03 02/08/24 11:03 02/08/24 11:03 02/08/24 11:03 02/08/24 11:03
Physical Exam
Constitutional: No Acute Distress
Genito-Urinary: Negative CVA Tenderness
Objective Data
Lab Data
Lab Results
02/08/24 05:34
02/08/24 05:34
PT 15.5 Sec (11.4-14.6) H 02/06/24 04:21
INR 1.25 02/06/24 04:21
APTT 34.5 Sec (23.4-35.0) 02/06/24 04:21
Estimated Creat Clear 16 ml/min 02/08/24 05:34
Lactic Acid 1.6 mmol/L (0.7-2.0) 02/01/24 11:03
Total Bilirubin 0.6 mg/dl (0.2-1.3) 02/08/24 05:34
AST 47 U/L (17-59) 02/08/24 05:34
ALT 40 U/L (0-50) 02/08/24 05:34
Alkaline Phosphatase 117 U/L (38-126) 02/08/24 05:34
Most recent labs reviewed.
Micro Results:
02/02/24 10:20 Blood Culture - Final
Blood/Venous No Growth - Final Report
02/01/24 04:23 Blood Culture - Final
Blood/Venous No Growth - Final Report
01/30/24 16:52 Blood Culture - Final
Blood/Venous Enterococcus faecalis
Gram Stain - Final
01/30/24 16:57 Blood Culture - Final
Blood/Venous Enterococcus faecalis
Gram Stain - Final
[2024-02-08 15:30] VITALS: BP 91/48
--- NOTE | 2024-02-08 15:44 | PTCARENOTE ---
Jones catheter 18Frwas placed as per Urology order. Patient tolerated procedure well.
--- NOTE | 2024-02-08 15:51 | CM ---
Patient seen at bedside with physicians. CM called to patient daughter and VM left regarding update, will continue to seek a bed at [facility] and will redo the authorization when patient is medically cleared for discharge. CM will continue to follow for
discharge planning needs.
Plan; SNF; needs auth to be updated
[2024-02-08] MEDS: NSS 1000 IV (16:03)
[2024-02-08] MEDS: AMPICILLIN IV (16:06)
[2024-02-08 17:27] LABS: Urine Sodium 48 mmol/L (30-90)
[2024-02-08] MEDS: AMOXIL 500 MG PO (19:20)
[2024-02-08] MEDS: COLACE PO (19:31)
[2024-02-08 19:49] VITALS: BP 102/60
[2024-02-08] MEDS: TOPROL XL PO (22:59)
[2024-02-08] MEDS: PACERONE 200 MG PO (22:59)
[2024-02-08 23:26] VITALS: BP 93/57
[2024-02-09] VITALS (7 sets, daily range): BP systolic 84–111; BP diastolic 54–65; PULSE 98; O2SAT 94
--- NOTE | 2024-02-09 08:04 | W.PN.HOSP.TC ---
Addendum entered and electronically signed by Ana Rosa Watson MD 02/09/24 13:46:
I saw and evaluated the patient independently. I reviewed the resident�s note and agree with findings and plan as documented by Dr. Boykin.
GENERAL: chronically ill appearing male in no apparent distress
HEENT: NC/AT
HEART: irreg ireg
LUNGS : clear to auscultation bilaterally
ABDOM: soft, nontender, nondistended, + bowel sounds
EXT: no cyanosis, clubbing, or edema
NEUROLOGIC: grossly intact
: greenberg removed--bladder distended--greenberg replaced and has pink urine
Acute hematuria with clot retention--apprec urology--s/p cystoscopy 02/06/24 with sclerotic prostatic fossa with friable neovascularity also involving trigone--s/p CBI--voiding trial failed x 2 with rising creat--greenberg replaced--would d/c with greenberg
Acute Blood Loss Anemia--due to Hematuria-- received 3 units pRBC in total--repeat HGB 7.2--follow--consideration for transfusion
Persistent Atrial Fibrillation - Stable--EKG continues to show atrial fibrillation that is persistent regardless of medication--holding eliquis at this time, restart as per urology
Chronic HFpEF - Stable--Cardiology consult from 12/29/2023 states that the patient has a history of chronic heart failure with preserved ejection fraction. An echo on 08/01/2023 shows an ejection fraction of 60 to 65%-- Follow Wts daily
Enterococcus bacteremia suspected urinary source: Resolving--Likely due to bladder outlet obstruction from clots--Infectious disease suspects Enterococcus--Continue Ampicillin - Enterococcus faecalis culture showed sensitivity to ampicillin--White
blood cell count is 8.1 on 02/05 and continues to show improvement--Infectious disease consult recommends transition to amoxicillin 500 mg PO q12h at the time of discharge through 02/13/2024
MARIZOL on CKD stage III: Stable and Monitoring--Possibly multifactorial - urinary retention from clot obstruction, infection, prerenal from blood loss--Continue to monitor BUN and creatinine. BUN is stable at 31 and creatinine rising to 2.8, down to
2.3--apprec renal--with lower BP--s/p IVF x 1 L--greenberg replaced
History of prostate cancer status post XRT--Advised to continue following urologist outpatient
Borderline Underweight - Stable--Patient has a BMI that has fluctuated around 19.5. His fluctuations in BMI put him approximately in the category of being borderline underweight.
Buttocks stage I pressure (decubitus) ulcer present on admission: - Improving--cont wound care--apprec wound care team
CODE: DNR
Original Note:
Today's Communication/Plan
-
Spoke to patient about his hospital course. Patient is aware that his daughter has been updated about his hospital course. Will continue to monitor the patient's hemoglobin and hematocrit to determine whether it is stable or not. Patient may need
to go home with Greenberg catheter due to repeated fails of voiding trials. Continue to monitor patient's blood pressure for hypotension. If needed we will consider IVF resuscitation.
Assessment / Plan
Assessment / Plan
- Acute hematuria with clot retention: Monitoring - Unresolved
Continuous bladder irrigation
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
CBI discontinued, voiding trial attempted
3 units of packed RBCs given during this hospital stay.
Continue to trend CBC -patient had 7.5 Hgb on 02/07 - awaiting today's lab results
Cystoscopy with clot evacuation and fulguration of bleeding showed sclerotic prostatic fossa with friable neovascularity also involving the trigone.
- Acute Blood Loss Anemia: Hematuria -unresolved
Blood transfusion given.
Continue to trend CBC -patient was 6.5 hemoglobin on 02/05 in the morning and received 1 unit PRBCs. Currently Hgb was 7.5 on 02/08
Continue to follow labs and assess whether another transfusion is indicated.
- Retention of Urine:
Patient has attempted multiple voiding trials and unfortunately failed each trial necessitating catheter reinsertion.
Patient is currently status Greenberg. Will continue to monitor for improvement of hematuria.
- Persistent Atrial Fibrillation: - Stable
EKG continues to show atrial fibrillation that is persistent regardless of medication.
Monitoring patient on telemetry.
- Chronic HFpEF: - Stable
Cardiology consult on 12/29/2023 states that the patient has a history of chronic heart failure with preserved ejection fraction. An echo on 08/01/2023 shows an ejection fraction of 60 to 65%
Monitoring patient on telemetry. Holding lasix for now. Follow Wts daily
-Enterococcus bacteremia suspected urinary source: Resolving
Likely due to bladder outlet obstruction from clots.
Infectious disease suspects Enterococcus
Continue Ampicillin - Enterococcus faecalis culture showed sensitivity to ampicillin
White blood cell count was 9.6 on 02/07
Infectious disease has transitioned antibiotic treatment to amoxicillin 500 mg PO q12h through 02/13/2024
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
Possibly multifactorial - urinary retention from clot obstruction, infection, prerenal from blood loss
Continue to monitor BUN and creatinine. BUN is 44 and creatinine was 2.8 on 02/07
Hyperkalemia: Potassium was found to be 5.5 on 02/06 -1 dose of Lokelma given -potassium was 5.1 on 02/07 -resolved
Erythropoietin levels ordered -was elevated at 79 on 02/02
Nephrology consult ordered -recommended checking a renal/bladder ultrasound. If hydroureter, may need percutaneous nephrostomies. -They recommend following BMP and continuing to check urine studies.
- History of prostate cancer status post XRT:
Advised to continue following a urologist outpatient.
- Borderline Underweight: - Stable
Patient has a BMI that has fluctuated around 19.5. His fluctuations in BMI put him approximately in the category of being borderline underweight.
Current nutrition goals have been met and dietary continues to follow the patient.
- Buttocks stage I pressure (decubitus) ulcer present on admission: - Improving
Patient presented with a buttock stage I pressure ulcer on admission. Silicone border foam placed.
Patient continues to be followed by wound care team.
Wound is healing and is Dry/Intact on 02/03.
-Lower limb weakness - Deconditioning: Monitoring
PT/OT consult ordered
Assessment from PT/OT stated that the patient required assistance for functional transfers and mobility, limited by deconditioning, decreased endurance, impaired balance, generalized weakness, fatigue. Recommended skilled rehab at discharge. They
continue to follow
- Hypotensiom: Monitoring
Patient's blood pressure was 102/61 on 02/08. IV fluids given yesterday. Continue to monitor
CODE: DNR
DW Urology and daughter.
Anticipated Discharge: 24 - 48 hours
Subjective/Interval History
-
Date of Service: February 09, 2024
Met with patient at the bedside. Overall, he feels slightly better than he did yesterday. He is disappointed that he has been unable to void on his own and the catheter was very inserted last night. Patient is aware that his daughter Kim has
been updated about his hospital course. Patient is said that he is struggling to void on his own but states 'what can I do, I have to just do my best.'
Objective Data
-
Labs:
Laboratory Results
02/09/24
06:00
WBC Pending
Hgb Pending
Hct Pending
Plt Count Pending
Sodium Pending
Potassium Pending
Chloride Pending
Carbon Dioxide Pending
BUN Pending
Creatinine Pending
Glucose Pending
Calcium Pending
Total Bilirubin Pending
AST Pending
ALT Pending
Alkaline Phosphatase Pending
Vital Signs:
Vital Signs
Temp Pulse Resp BP Pulse Ox
98.0 F 79 18 101/59 94
02/09/24 03:14 02/09/24 03:14 02/09/24 03:14 02/09/24 03:14 02/09/24 03:14
I&O
02/08/24 02/09/24 02/10/24
06:59 06:59 06:59
Intake Total 1440 / 1440 1260 / 1260
Output Total 1959 / 1959 1210 / 1210
Balance -520 / -520 50 / 50
Review of Systems
-
History Source: Patient
Constitutional: Reports No Symptoms
EENT: Reports No Symptoms Reported
Respiratory: Reports No Symptoms
Cardiac: Reports No Symptoms
Abdomen/GI: Reports No Symptoms
Breast: Reports No Symptoms
Genitourinary: Reports Difficulty Voiding
Musculoskeletal: Reports No Symptoms
Skin: Reports No Symptoms
Neuro: Reports No Symptoms
Endocrine: Reports No Symptoms
Hematologic / Lymphatic: Reports No Symptoms
Physical Exam
-
General: Well Developed, Well Nourished and No Apparent Distress
HEENT: Normocephalic, Atraumatic and Moist Mucous Membranes
Respiratory: Clear to Auscultation
Cardiac: Irregular Rhythm
Breast: Deferred by me
GI: Soft, Nontender, Nondistended and Normal Bowel Sounds
Rectal: Deferred by Provider
Genito-urinary: Bloody Urine and Greenberg
Musculoskeletal: No Clubbing, No Cyanosis and No Edema
Skin: Warm and Dry
Neuro: Nonfocal/Grossly Intact
Psych: Calm
[2024-02-09] MEDS: MIRALAX PO (08:17)
[2024-02-09] MEDS: COLACE PO ×2 (08:17→19:44)
[2024-02-09] MEDS: NON-FORMULARY ITEM 1 APPLIC TOPICAL (08:18)
[2024-02-09] MEDS: AMOXIL 500 MG PO ×2 (08:19→19:43)
[2024-02-09] MEDS: ProAmatine 5 MG PO ×3 (08:21→23:00)
[2024-02-09] MEDS: TYLENOL 650 MG PO ×2 (09:16→16:56)
--- NOTE | 2024-02-09 10:31 | W.PN.ID1 ---
Date of Service
Date of Service: February 09, 2024
Today's Communication
Continue amoxicillin 500mg po q12 through 02/13/24.
ID will sign off. Call prn.
Assessment / Plan
# E. faecalis bacteremia due to bladder outlet obstruction from clot retention
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
- s/p 7d IV ampicillin
- Continue amoxicillin 500mg po q12 through 02/13/24.
- ID will sign off.
# MARIZOL on CKD3
#Conditions prior to admission
Permanent atrial fibrillation on Eliquis
CKD 3
Severe mitral regurgitation
Cardiomyopathy s/p ICD placement
Essential tremor
Prostate cancer status post XRT
Radiation induced hemorrhagic cystitis
Right hip replacement
Paraesophageal hernia and gastric volvulus repair
Chief Complaint
-: UTI and Bacteremia
Subjective / Review of Systems
Stable.
Vital Signs / Physical Exam
Vital Signs
Vital Signs
Temp Pulse Resp BP Pulse Ox
97.7 F 74 18 111/65 95
02/09/24 07:36 02/09/24 08:21 02/09/24 07:36 02/09/24 08:21 02/09/24 08:54
Physical Exam
Constitutional: Comfortable
Genito-Urinary: Jones and Clear Urine
Objective Data
Lab Data
PT 15.5 Sec (11.4-14.6) H 02/06/24 04:21
INR 1.25 02/06/24 04:21
APTT 34.5 Sec (23.4-35.0) 02/06/24 04:21
Estimated Creat Clear 16 ml/min 02/08/24 05:34
Lactic Acid 1.6 mmol/L (0.7-2.0) 02/01/24 11:03
Total Bilirubin 0.6 mg/dl (0.2-1.3) 02/08/24 05:34
AST 47 U/L (17-59) 02/08/24 05:34
ALT 40 U/L (0-50) 02/08/24 05:34
Alkaline Phosphatase 117 U/L (38-126) 02/08/24 05:34
Most recent labs reviewed.
Micro Results:
02/02/24 10:20 Blood Culture - Final
Blood/Venous No Growth - Final Report
02/01/24 04:23 Blood Culture - Final
Blood/Venous No Growth - Final Report
01/30/24 16:52 Blood Culture - Final
Blood/Venous Enterococcus faecalis
Gram Stain - Final
01/30/24 16:57 Blood Culture - Final
Blood/Venous Enterococcus faecalis
Gram Stain - Final
[2024-02-09 10:40] LABS: Hematocrit 22.4 % (39.0-52.0); Hemoglobin 7.2 g/dL (13.0-18.0); Mean Corp Hgb Conc. 32.1 g/dL (33.0-37.0); Mean Corpuscular Hgb 31.3 pg (27.0-31.0); Mean Corpuscular Volume 97.4 fL (80.0-94.0); Mean Platelet Volume 9.3 fL (7.4-10.4); Platelet Count 147 10^3/uL (130-400); Red Cell Dist. Width 18.8 % (11.5-14.5)
[2024-02-09 11:13] LABS: ALT (SGPT) 37 U/L (0-50); AST (SGOT) 42 U/L (17-59); Albumin 2.6 g/dl (3.5-5.0); Alkaline Phosphatase 99 U/L (38-126); Blood Urea Nitrogen 42 mg/dl (9-20); Calcium 7.5 mg/dl (8.4-10.2); Carbon Dioxide 23 mmol/L (22-30); Chloride 103 mmol/L (98-107); Estimated Creatinine Clearance 20 ml/min; Glucose 146 mg/dl (70-99); Potassium 4.6 mmol/L (3.5-5.1); Sodium 132 mmol/L (135-145); Total Bilirubin 0.7 mg/dl (0.2-1.3); Total Protein 5.5 g/dl (6.3-8.2); eGFR 26.48
--- NOTE | 2024-02-09 11:47 | CM ---
Addendum entered by Latisha Telles 02/09/24 12:43:
Patient daughter updated, plan remains short term at [facility]. CM will send updated clinicals to [facility].
Original Note:
Patient seen at bedside with physicians. Patient now with greenberg and plan is for patient to go to SNF with greenberg in. CM will send updated clinicals and call back to daughter to review plan. CM will reach out to admissions at [facility], and restart auth
when patient medically appropriate. CM will continue to follow for discharge planning needs.
PLan; SNF
--- NOTE | 2024-02-09 13:02 | W.PN.NEPH.PH ---
Today's Communication / Plan
-
follow BMP
Assessment/Plan
-
Assessment
Prostate cancer status post radiation, hemorrhagic cystitis
Recent urinary retention
Acute kidney injury
CKD 3B, 1.7
Hyperkalemia
Hyponatremia
Atrial fibrillation
Chronic hypotension on midodrine
Plan
maintain greenberg
follow BMP
check urine studies
await US reading, but this was done after greenberg was already replaced
-
-
Date of Service: February 09, 2024
CC / HPI / ROS
-
Chief Complaint:
MARIZOL
History of Present Illness:
MARIZOL/Cr down to 2.3
BP stable
PVR 375ml
K controlled
Na low stable 132
Hgb low 7.2
Review of Systems:
no CP/SOB
he says he feels he is not emptying bladder well still
Labs
-
Labs:
WBC 8.0 10^3/uL (4.8-10.8) 02/09/24 09:51
RBC 2.30 10^6/uL (4.70-6.10) L 02/09/24 09:51
Hgb 7.2 g/dL (13.0-18.0) L 02/09/24 09:51
Hct 22.4 % (39.0-52.0) L 02/09/24 09:51
Plt Count 147 10^3/uL (130-400) 02/09/24 09:51
Sodium 132 mmol/L (135-145) L 02/09/24 09:51
Potassium 4.6 mmol/L (3.5-5.1) 02/09/24 09:51
Chloride 103 mmol/L (98-107) 02/09/24 09:51
Carbon Dioxide 23 mmol/L (22-30) 02/09/24 09:51
BUN 42 mg/dl (9-20) H 02/09/24 09:51
Creatinine 2.3 mg/dL (0.7-1.3) H 02/09/24 09:51
eGFR 26.48 02/09/24 09:51
Glucose 146 mg/dl (70-99) H 02/09/24 09:51
Calcium 7.5 mg/dl (8.4-10.2) L 02/09/24 09:51
Albumin 2.6 g/dl (3.5-5.0) L 02/09/24 09:51
Physical Exam
-
Vital Signs:
Vital Signs
Temp Pulse Resp BP Pulse Ox
98.1 F 68 24 102/61 95
02/09/24 10:53 02/09/24 10:53 02/09/24 10:53 02/09/24 10:53 02/09/24 10:53
Cardiovascular:: Regular rate and rhythm
Respiratory:: Bilateral: Coarse
Lung Excursion:: Normal
Abdomen:: Nontender and Soft
Bowel Sounds:: Normal
Extremity Edema:: None: Bilateral:
--- NOTE | 2024-02-09 14:21 | W.PN.URO.CBU ---
Today's Communication / Plan
-
no new input
Assessment / Plan
-
Acute urinary retention w/ clot obstruction - significant hematuria resolved w/ CBI, recurrence 02/02
Radiation cystitis
H/o prostate cancer s/p XRT
MARIZOL on CKD III - improving
hematuria has abated
urinary retention has persisted
Diagnosis
-
Date of Service: February 09, 2024
-
Post Op Day: 3 s/p cysto + fulguration
Patient Diagnosis:
Radiation-induced hemorrhagic cystitis
Acute urinary retention w/ clot obstruction
H/o prostate cancer s/p XRT
AMRIZOL on CKD III
Subjective
-
comfortable with Greenberg
Objective
-
Vital Signs
Temp Pulse Resp BP Pulse Ox
98.1 F 68 24 102/61 95
02/09/24 10:53 02/09/24 10:53 02/09/24 10:53 02/09/24 10:53 02/09/24 10:53
Intake and Output
02/08/24 02/09/24 02/10/24
06:59 06:59 06:59
Intake Total 1440 / 1440 1260 / 1260
Output Total 1960 / 1960 1210 / 1210
Balance -520 / -520 50 / 50
Intake:
Oral fluids 1440 / 1440 600 / 600
IV fluids (Total) 660 / 660
Output:
Urine, Greenberg 100 / 100 1110 / 1110
Urine, Voided 210 / 210 100 / 100
True Urine Output from CBI 1650 / 1650
Other:
How many times incontinent 1 2
MODERATE amount urine
Laboratory Results
02/09/24 09:51
02/09/24 09:51
Physical Exam
-
General - well developed, well nourished, no acute distress
Chest - clear bilaterally
Abdomen - soft, non-tender, positive bowel sounds, no distention
Genitalia - greenberg with pink, clot-free urine
[2024-02-09] MEDS: TOPROL XL PO (22:55)
[2024-02-09] MEDS: PACERONE 200 MG PO (22:55)
[2024-02-10] VITALS (8 sets, daily range): BP systolic 98–116; BP diastolic 58–72; PULSE 77–79; O2SAT 96
[2024-02-10 06:18] LABS: Hematocrit 21.9 % (39.0-52.0); Hemoglobin 7.2 g/dL (13.0-18.0); Mean Corp Hgb Conc. 32.9 g/dL (33.0-37.0); Mean Corpuscular Hgb 31.3 pg (27.0-31.0); Mean Corpuscular Volume 95.2 fL (80.0-94.0); Mean Platelet Volume 9.1 fL (7.4-10.4); Platelet Count 140 10^3/uL (130-400); Red Cell Dist. Width 18.7 % (11.5-14.5); White Blood Cell Count 7.4 10^3/uL (4.8-10.8)
[2024-02-10 06:37] LABS: ALT (SGPT) 34 U/L (0-50); AST (SGOT) 38 U/L (17-59); Albumin 2.4 g/dl (3.5-5.0); Alkaline Phosphatase 101 U/L (38-126); Blood Urea Nitrogen 39 mg/dl (9-20); Calcium 7.6 mg/dl (8.4-10.2); Carbon Dioxide 27 mmol/L (22-30); Chloride 104 mmol/L (98-107); Estimated Creatinine Clearance 22 ml/min; Glucose 90 mg/dl (70-99); Potassium 5.1 mmol/L (3.5-5.1); Sodium 134 mmol/L (135-145); Total Bilirubin 0.6 mg/dl (0.2-1.3); Total Protein 5.2 g/dl (6.3-8.2); eGFR 29.53
[2024-02-10] MEDS: ProAmatine 5 MG PO ×2 (08:41→15:53)
[2024-02-10] MEDS: AMOXIL 500 MG PO ×2 (08:41→22:04)
[2024-02-10] MEDS: FLUSH (NSS) 1 FLUSH IV (08:43)
[2024-02-10] MEDS: NON-FORMULARY ITEM 1 APPLIC TOPICAL (08:44)
[2024-02-10] MEDS: COLACE PO ×2 (08:45→22:04)
[2024-02-10] MEDS: MIRALAX PO (08:46)
--- NOTE | 2024-02-10 09:22 | W.PN.HOSP.TC ---
Addendum entered and electronically signed by Ana Rosa Watson MD 02/10/24 16:11:
I saw and evaluated the patient independently. I reviewed the resident�s note and agree with findings and plan as documented by Dr. Boykin.
GENERAL: chronically ill appearing male in no apparent distress
HEENT: NC/AT
HEART: irreg irreg
LUNGS : clear to auscultation bilaterally
ABDOM: soft, nontender, nondistended, + bowel sounds
EXT: no cyanosis, clubbing, or edema
NEUROLOGIC: grossly intact
: greenberg removed--bladder distended--greenberg replaced
Acute hematuria with clot retention--apprec urology--s/p cystoscopy 02/06/24 with sclerotic prostatic fossa with friable neovascularity also involving trigone--s/p CBI--voiding trial failed x 2 with rising creat--greenberg replaced--would d/c with greenberg
Acute Blood Loss Anemia--due to Hematuria-- received 3 units pRBC in total--repeat HGB 7.2--follow--consideration for transfusion
Persistent Atrial Fibrillation - Stable--EKG continues to show atrial fibrillation that is persistent regardless of medication--holding eliquis at this time, restart as per urology
Chronic HFpEF - Stable--Cardiology consult from 12/29/2023 states that the patient has a history of chronic heart failure with preserved ejection fraction. An echo on 08/01/2023 shows an ejection fraction of 60 to 65%-- Follow Wts daily
Enterococcus bacteremia suspected urinary source: Resolving--Likely due to bladder outlet obstruction from clots--Infectious disease suspects Enterococcus--Continue Ampicillin - Enterococcus faecalis culture showed sensitivity to ampicillin--White
blood cell count is 8.1 on 02/05 and continues to show improvement--Infectious disease consult recommends transition to amoxicillin 500 mg PO q12h at the time of discharge through 02/13/2024
MARIZOL on CKD stage III: Stable and Monitoring--Possibly multifactorial - urinary retention from clot obstruction, infection, prerenal from blood loss--Continue to monitor BUN and creatinine. BUN is stable at 31 and creatinine rising to 2.8, down to
2.1--apprec renal--with lower BP--s/p IVF x 1 L--greenberg replaced
History of prostate cancer status post XRT--Advised to continue following urologist outpatient
Borderline Underweight - Stable--Patient has a BMI that has fluctuated around 19.5. His fluctuations in BMI put him approximately in the category of being borderline underweight.
Buttocks stage I pressure (decubitus) ulcer present on admission: - Improving--cont wound care--apprec wound care team
CODE: DNR
anticipate d/c to [facility]
Original Note:
Today's Communication/Plan
-
Patient appears to be approaching near his baseline level. We will continue to monitor his creatinine and hopes of further improvement. If urology and nephrology is on board, we may move forward with discharge considerations. If it is determined to
be the best and current baseline then we will move forward with discharge planning. Patient likely to be discharged with greenberg status and recommended that adequate care be taken of cleaning and maintaining greenberg until final removal.
Assessment / Plan
Assessment / Plan
- Acute hematuria with clot retention: Monitoring - Unresolved
Continuous bladder irrigation
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
CBI discontinued, greenberg status
3 units of packed RBCs given during this hospital stay.
Continue to trend CBC -patient had 7.2 Hgb on 02/09
Cystoscopy with clot evacuation and fulguration of bleeding showed sclerotic prostatic fossa with friable neovascularity also involving the trigone.
noticeably less blood seen in catheter bag on 02/09.
- Acute Blood Loss Anemia: Hematuria -unresolved
Blood transfusion given.
Continue to trend CBC -patient was 6.5 hemoglobin on 02/05 in the morning and received 1 unit PRBCs. Currently Hgb was 7.2 on 02/09
Continue to follow labs and assess whether another transfusion is indicated.
- Retention of Urine: Monitoring
Patient has attempted multiple voiding trials and unfortunately failed each trial necessitating catheter reinsertion.
Patient is currently status Greneberg. Will continue to monitor for improvement of hematuria.
possible discharge with Greenberg
- Persistent Atrial Fibrillation: - Stable
EKG continues to show atrial fibrillation that is persistent regardless of medication.
Monitoring patient on telemetry.
Eliquis continues to be held
- Chronic HFpEF: - Stable
Cardiology consult on 12/29/2023 states that the patient has a history of chronic heart failure with preserved ejection fraction. An echo on 08/01/2023 shows an ejection fraction of 60 to 65%
Monitoring patient on telemetry. Holding lasix for now. Follow Wts daily
-Enterococcus bacteremia suspected urinary source: Resolving
Likely due to bladder outlet obstruction from clots.
Infectious disease suspects Enterococcus
Continue Ampicillin - Enterococcus faecalis culture showed sensitivity to ampicillin
White blood cell count was 9.6 on 02/07
Infectious disease has transitioned antibiotic treatment to amoxicillin 500 mg PO q12h through 02/13/2024
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
Possibly multifactorial - urinary retention from clot obstruction, infection, prerenal from blood loss
Continue to monitor BUN and creatinine. BUN is 39 and creatinine was 2.1 on 02/09
Hyperkalemia: Potassium was found to be 5.5 on 02/06 -1 dose of Lokelma given -potassium was 5.1 on 02/09 -resolved
Erythropoietin levels ordered -was elevated at 79 on 02/02
Nephrology consult ordered -recommended checking a renal/bladder ultrasound. If hydroureter, may need percutaneous nephrostomies. -They recommend following BMP and continuing to check urine studies.
greenberg catheter replaced
- History of prostate cancer status post XRT:
Advised to continue following a urologist outpatient.
- Borderline Underweight: - Stable
Patient has a BMI that has fluctuated around 19.5. His fluctuations in BMI put him approximately in the category of being borderline underweight.
Current nutrition goals have been met and dietary continues to follow the patient.
- Buttocks stage I pressure (decubitus) ulcer present on admission: - Improving
Patient presented with a buttock stage I pressure ulcer on admission. Silicone border foam placed.
Patient continues to be followed by wound care team.
Wound is healing and is Dry/Intact on 02/03.
-Lower limb weakness - Deconditioning: Monitoring
PT/OT consult ordered
Assessment from PT/OT stated that the patient required assistance for functional transfers and mobility, limited by deconditioning, decreased endurance, impaired balance, generalized weakness, fatigue. Recommended skilled rehab at discharge. They
continue to follow
- Hypotensiom: Monitoring - Resolved
Patient's blood pressure was 102/61 on 02/08. IV fluids given yesterday. Continue to monitor - patient currently normotensive
CODE: DNR
DW Urology and daughter.
Anticipated Discharge: 24 - 48 hours
Subjective/Interval History
-
Date of Service: February 10, 2024
Met with patient at the bedside. Patient is in good spirits and was seen finishing up his breakfast. He states that he feels stronger than he did yesterday and that he hopes that his hospital course is going in the right direction. He shared that he
hopes to have his daughter speak to nephrology.
Objective Data
-
Labs:
Laboratory Results
02/10/24
04:27
WBC 7.4
Hgb 7.2 L
Hct 21.9 L
Plt Count 140
Sodium 134 L
Potassium 5.1
Chloride 104
Carbon Dioxide 27
BUN 39 H
Creatinine 2.1 H
Glucose 90
Calcium 7.6 L
Total Bilirubin 0.6
AST 38
ALT 34
Alkaline Phosphatase 101
Vital Signs:
Vital Signs
Temp Pulse Resp BP Pulse Ox
97.5 F 84 16 116/67 95
02/10/24 08:16 02/10/24 08:16 02/10/24 08:16 02/10/24 08:16 02/10/24 08:16
I&O
02/09/24 02/10/24 02/11/24
06:59 06:59 06:59
Intake Total 1260 / 1260 840 / 840
Output Total 1210 / 1210 1700 / 1700
Balance 50 / 50 -860 / -860
Review of Systems
-
History Source: Patient
Constitutional: Reports No Symptoms
EENT: Reports No Symptoms Reported
Respiratory: Reports No Symptoms
Cardiac: Reports No Symptoms
Abdomen/GI: Reports No Symptoms
Breast: Reports No Symptoms
Genitourinary: Reports Difficulty Voiding and Bleeding
Musculoskeletal: Reports No Symptoms
Skin: Reports No Symptoms
Neuro: Reports No Symptoms
Endocrine: Reports No Symptoms
Hematologic / Lymphatic: Reports No Symptoms
Physical Exam
-
General: Well Developed, Well Nourished, No Apparent Distress and Comfortable
HEENT: Normocephalic, Atraumatic and Moist Mucous Membranes
Respiratory: Clear to Auscultation
Cardiac: Irregular Rhythm
Breast: Deferred by me
GI: Soft, Nontender, Nondistended and Normal Bowel Sounds
Rectal: Deferred by Provider
Genito-urinary: Bloody Urine and Greenberg
Musculoskeletal: No Clubbing, No Cyanosis and No Edema
Skin: Warm and Dry
Neuro: Nonfocal/Grossly Intact
Psych: Calm
--- NOTE | 2024-02-10 14:35 | CM ---
Addendum entered by Latisha Telles 02/10/24 15:58:
CM called to patient daughter and VM left her. CM will continue to follow for discharge planning needs.
Original Note:
Patient possible for transition to SNF over weekend. CM updated Lacie from [facility] and pending response about computer systems. CM updated nursing and will need to start auth when bed confirmed. CM will also call to patient daughter to update regarding
plan. CM will continue to follow for discharge planning needs.
Plan;SNF
--- NOTE | 2024-02-10 15:04 | W.PN.NEPH.PH ---
Today's Communication / Plan
-
- Cr downtrending
- continue with Greenberg
Assessment/Plan
-
Assessment
Prostate cancer status post radiation, hemorrhagic cystitis
Recent urinary retention
Acute kidney injury
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
Hyperkalemia
Hyponatremia
Atrial fibrillation
Chronic hypotension on midodrine
E faecalis bacteremia
Plan
maintain greenberg
Cr slowly improving. peak 2.8, current 2.1.'
continued on abx for bacteremia (stop 02/12)
follow BMP
check urine studies
US with no hydronephrosis
-
-
Date of Service: February 10, 2024
CC / HPI / ROS
-
Chief Complaint:
MARIZOL
History of Present Illness:
MARIZOL/Cr down to 2.1
BP stable
PVR 375ml
K controlled
Na low stable 134
Hgb low 7.2
Review of Systems:
no CP/SOB
he says he feels he is not emptying bladder well still
Labs
-
Labs:
WBC 7.4 10^3/uL (4.8-10.8) 02/10/24 04:27
RBC 2.30 10^6/uL (4.70-6.10) L 02/10/24 04:27
Hgb 7.2 g/dL (13.0-18.0) L 02/10/24 04:27
Hct 21.9 % (39.0-52.0) L 02/10/24 04:27
Plt Count 140 10^3/uL (130-400) 02/10/24 04:27
Sodium 134 mmol/L (135-145) L 02/10/24 04:27
Potassium 5.1 mmol/L (3.5-5.1) 02/10/24 04:27
Chloride 104 mmol/L (98-107) 02/10/24 04:27
Carbon Dioxide 27 mmol/L (22-30) 02/10/24 04:27
BUN 39 mg/dl (9-20) H 02/10/24 04:27
Creatinine 2.1 mg/dL (0.7-1.3) H 02/10/24 04:27
eGFR 29.53 02/10/24 04:27
Glucose 90 mg/dl (70-99) 02/10/24 04:27
Calcium 7.6 mg/dl (8.4-10.2) L 02/10/24 04:27
Albumin 2.4 g/dl (3.5-5.0) L 02/10/24 04:27
Physical Exam
-
Vital Signs:
Vital Signs
Temp Pulse Resp BP Pulse Ox
98.2 F 72 18 100/58 95
02/10/24 11:32 02/10/24 11:32 02/10/24 11:32 02/10/24 11:32 02/10/24 08:16
Cardiovascular:: Regular rate and rhythm
Respiratory:: Bilateral: CTA
Lung Excursion:: Normal
Abdomen:: Nontender and Soft
Bowel Sounds:: Normal
Extremity Edema:: None: Bilateral:
Greenberg Catheter: Yes
[2024-02-10] MEDS: TYLENOL 650 MG PO (15:54)
[2024-02-10] MEDS: PACERONE 200 MG PO (22:04)
[2024-02-10] MEDS: TOPROL XL PO (22:04)
[2024-02-11] MEDS: ProAmatine 5 MG PO ×4 (00:03→21:20)
[2024-02-11 04:09] VITALS: BP 106/65
[2024-02-11 07:21] VITALS: BP 109/66
[2024-02-11 07:59] LABS: ALT (SGPT) 33 U/L (0-50); AST (SGOT) 36 U/L (17-59); Albumin 2.5 g/dl (3.5-5.0); Alkaline Phosphatase 100 U/L (38-126); Blood Urea Nitrogen 34 mg/dl (9-20); Calcium 7.9 mg/dl (8.4-10.2); Carbon Dioxide 27 mmol/L (22-30); Chloride 105 mmol/L (98-107); Estimated Creatinine Clearance 23 ml/min; Glucose 84 mg/dl (70-99); Potassium 5.1 mmol/L (3.5-5.1); Sodium 135 mmol/L (135-145); Total Bilirubin 0.6 mg/dl (0.2-1.3); Total Protein 5.3 g/dl (6.3-8.2); eGFR 31.31
[2024-02-11] MEDS: AMOXIL 500 MG PO ×2 (08:41→21:18)
[2024-02-11] MEDS: COLACE 100 MG PO (08:42)
[2024-02-11] MEDS: MIRALAX 17 GRAMS PO (08:42)
[2024-02-11] MEDS: NON-FORMULARY ITEM 1 APPLIC TOPICAL (09:10)
--- NOTE | 2024-02-11 10:52 | W.PN.NEPH.PH ---
Today's Communication / Plan
-
- Cr improving slowly
Assessment/Plan
-
Assessment
Prostate cancer status post radiation, hemorrhagic cystitis
Recent urinary retention
Acute kidney injury
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
Hyperkalemia
Hyponatremia
Atrial fibrillation
Chronic hypotension on midodrine
E faecalis bacteremia
Plan
maintain greenberg
Cr slowly improving. peak 2.8, current 2.0
continued on abx for bacteremia (stop 02/12)
follow BMP
urine studies with unequivocal sodium. blood on UA.
US with no hydronephrosis
-
-
Date of Service: February 11, 2024
CC / HPI / ROS
-
Chief Complaint:
MARIZOL
History of Present Illness:
MARIZOL/Cr down to 2.0
BP stable
PVR 375ml
K controlled
Na normal at 135
Hgb low 7.2
Review of Systems:
no CP/SOB
he says he feels he is not emptying bladder well still
Labs
-
Labs:
WBC 7.4 10^3/uL (4.8-10.8) 02/10/24 04:27
RBC 2.30 10^6/uL (4.70-6.10) L 02/10/24 04:27
Hgb 7.2 g/dL (13.0-18.0) L 02/10/24 04:27
Hct 21.9 % (39.0-52.0) L 02/10/24 04:27
Plt Count 140 10^3/uL (130-400) 02/10/24 04:27
Sodium 135 mmol/L (135-145) 02/11/24 05:59
Potassium 5.1 mmol/L (3.5-5.1) 02/11/24 05:59
Chloride 105 mmol/L (98-107) 02/11/24 05:59
Carbon Dioxide 27 mmol/L (22-30) 02/11/24 05:59
BUN 34 mg/dl (9-20) H 02/11/24 05:59
Creatinine 2.0 mg/dL (0.7-1.3) H 02/11/24 05:59
eGFR 31.31 02/11/24 05:59
Glucose 84 mg/dl (70-99) 02/11/24 05:59
Calcium 7.9 mg/dl (8.4-10.2) L 02/11/24 05:59
Albumin 2.5 g/dl (3.5-5.0) L 02/11/24 05:59
Physical Exam
-
Vital Signs:
Vital Signs
Temp Pulse Resp BP Pulse Ox
97.8 F 77 16 109/66 94
02/11/24 07:21 02/11/24 07:21 02/11/24 07:21 02/11/24 07:21 02/11/24 07:21
Cardiovascular:: Regular rate and rhythm
Respiratory:: Bilateral: Coarse
Lung Excursion:: Normal
Abdomen:: Nontender and Soft
Bowel Sounds:: Normal
Extremity Edema:: None: Bilateral:
Greenberg Catheter: Yes
[2024-02-11 11:05] VITALS: BP 101/58
--- NOTE | 2024-02-11 13:50 | W.PN.HOSP.TC ---
Addendum entered and electronically signed by Ana Rosa Watson MD 02/11/24 14:23:
I saw and evaluated the patient independently. I reviewed the resident�s note and agree with findings and plan as documented by Dr. Rodriguez.
GENERAL: chronically ill appearing male in no apparent distress
HEENT: NC/AT
HEART: irreg irreg
LUNGS : clear to auscultation bilaterally
ABDOM: soft, nontender, nondistended, + bowel sounds
EXT: no cyanosis, clubbing, or edema
NEUROLOGIC: grossly intact
: greenberg replaced
Acute hematuria with clot retention--apprec urology--s/p cystoscopy 02/06/24 with sclerotic prostatic fossa with friable neovascularity also involving trigone--s/p CBI--voiding trial failed x 2 with rising creat--greenberg replaced--would d/c with greenberg
Acute Blood Loss Anemia--due to Hematuria-- received 3 units pRBC in total--repeat HGB 7.2--follow--consideration for transfusion
Persistent Atrial Fibrillation - Stable--EKG continues to show atrial fibrillation that is persistent regardless of medication--holding eliquis at this time, restart
Chronic HFpEF - Stable--Cardiology consult from 12/29/2023 states that the patient has a history of chronic heart failure with preserved ejection fraction. An echo on 08/01/2023 shows an ejection fraction of 60 to 65%-- Follow Wts daily
Enterococcus bacteremia suspected urinary source: Resolving--Likely due to bladder outlet obstruction from clots--Infectious disease suspects Enterococcus--Continue Ampicillin - Enterococcus faecalis culture showed sensitivity to ampicillin--White
blood cell count is 8.1 on 02/05 and continues to show improvement--Infectious disease consult recommends transition to amoxicillin 500 mg PO q12h at the time of discharge through 02/13/2024
MARIZOL on CKD stage III: Stable and Monitoring--Possibly multifactorial - urinary retention from clot obstruction, infection, prerenal from blood loss--Continue to monitor BUN and creatinine. BUN is stable at 31 and creatinine rising to 2.8, down to
2.1--apprec renal--with lower BP--s/p IVF x 1 L--greenberg replaced
History of prostate cancer status post XRT--Advised to continue following urologist outpatient
Borderline Underweight - Stable--Patient has a BMI that has fluctuated around 19.5. His fluctuations in BMI put him approximately in the category of being borderline underweight.
Buttocks stage I pressure (decubitus) ulcer present on admission: - Improving--cont wound care--apprec wound care team
CODE: DNR
Original Note:
Today's Communication/Plan
-
Discharge planning
Assessment / Plan
Assessment / Plan
- Acute hematuria with clot retention: Monitoring - Unresolved
Cystoscopy with clot evacuation and fulguration of bleeding showed sclerotic prostatic fossa with friable neovascularity also involving the trigone.
Continuous bladder irrigation discontinued
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
3 units of packed RBCs given during this hospital stay.
Continue to trend CBC - hemoglobin stable at 7.2 on 02/09
Urine grossly nonbloody
- Acute Blood Loss Anemia: Hematuria
Status post 3 units PRBCs
Continue to trend CBC - Hgb was 7.2 on 02/09
Continue to follow labs and assess whether another transfusion is indicated.
Urinary retention:
Status post multiple failed voiding trials. Greenberg reinserted
Patient is currently status Greenberg. Will continue to monitor for improvement of hematuria.
Likely discharge with Greenberg.
- Persistent Atrial Fibrillation: - Stable
EKG continues to show atrial fibrillation that is persistent regardless of medication.
Monitoring patient on telemetry.
Eliquis continues to be held
- Chronic HFpEF: - Stable
Cardiology consult on 12/29/2023 states that the patient has a history of chronic heart failure with preserved ejection fraction. An echo on 08/01/2023 shows an ejection fraction of 60 to 65%
Monitoring patient on telemetry. Holding lasix for now. Follow Wts daily
-Enterococcus bacteremia suspected urinary source: Resolving
Likely due to bladder outlet obstruction from clots.
Infectious disease suspects Enterococcus
Continue Ampicillin - Enterococcus faecalis culture showed sensitivity to ampicillin
White blood cell count was 9.6 on 02/07
Infectious disease has transitioned antibiotic treatment to amoxicillin 500 mg PO q12h through 02/13/2024
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
Possibly multifactorial - urinary retention from clot obstruction, infection, prerenal from blood loss
Continue to monitor BUN and creatinine. BUN is 39 and creatinine was 2.1 today
Hyperkalemia: Potassium was found to be 5.5 on 02/06 -1 dose of Lokelma given -Resolved
Erythropoietin levels ordered -was elevated at 79 on 02/02
Appreciate nephro input
greenberg catheter replaced
-Enterococcus bacteremia suspected urinary source: Resolving
Likely due to bladder outlet obstruction from clots--Infectious disease suspects Enterococcus--Continue Ampicillin - Enterococcus faecalis culture showed sensitivity to ampicillin--White blood cell count is 8.1 on 02/05 and continues to show
improvement--Infectious disease consult recommends transition to amoxicillin 500 mg PO q12h at the time of discharge through 02/13/2024
- History of prostate cancer status post XRT:
Advised to continue following urologist outpatient.
- Borderline Underweight: - Stable
Patient has a BMI that has fluctuated around 19.5. His fluctuations in BMI put him approximately in the category of being borderline underweight.
Current nutrition goals have been met and dietary continues to follow the patient.
- Buttocks stage I pressure (decubitus) ulcer present on admission: - Improving
Patient presented with a buttock stage I pressure ulcer on admission. Silicone border foam placed.
Patient continues to be followed by wound care team.
- Ambulatory dysfunction:
PT/OT consult ordered
Assessment from PT/OT stated that the patient required assistance for functional transfers and mobility, limited by deconditioning, decreased endurance, impaired balance, generalized weakness, fatigue. Recommended skilled rehab at discharge. They
continue to follow
CODE: DNR
DW Urology and daughter.
Anticipated Discharge: > 48 hours
Subjective/Interval History
-
Date of Service: February 11, 2024
Objective Data
-
Labs:
Laboratory Results
02/11/24
05:59
Sodium 135
Potassium 5.1
Chloride 105
Carbon Dioxide 27
BUN 34 H
Creatinine 2.0 H
Glucose 84
Calcium 7.9 L
Total Bilirubin 0.6
AST 36
ALT 33
Alkaline Phosphatase 100
Vital Signs:
Vital Signs
Temp Pulse Resp BP Pulse Ox
97.8 F 72 16 101/58 97
02/11/24 11:05 02/11/24 11:05 02/11/24 11:05 02/11/24 11:05 02/11/24 11:05
I&O
02/10/24 02/11/24 02/12/24
06:59 06:59 06:59
Intake Total 840 / 840 600 / 600
Output Total 1700 / 1700 1500 / 1500
Balance -860 / -860 -900 / -900
Review of Systems
-
History Source: Patient
Respiratory: Denies Cough or Trouble Breathing
Cardiac: Denies Chest Pain, Palpitations or Syncope
Abdomen/GI: Denies Abdominal Pain, Diarrhea or Constipated
Neuro: Denies Dizzy or Headache
Physical Exam
-
General: No Apparent Distress and Comfortable
Respiratory: Clear to Auscultation and Non Labored Respirations; Negative Wheezes, Rales, Rhonchi or Crackles
Cardiac: S1/S2 and Irregular Rhythm; Negative Murmur or Rub
GI: Soft, Nontender, Nondistended and Normal Bowel Sounds
Genito-urinary: Clear Urine, Greenberg and Other (mils suprapubic fullness)
Musculoskeletal: No Clubbing, No Cyanosis, Edema, Right Lower Extrem (1+) and Edema, Left Lower Extrem (1+)
Skin: Warm and Dry
Neuro: Awake, Alert and Oriented
Psych: Calm
[2024-02-11 15:15] VITALS: BP 112/61
--- NOTE | 2024-02-11 16:41 | W.PN.UPDATE ---
Update Note
Progress Note Update
no further bleeding--restarted Eliquis--family reporting that it is to be stopped indefinitely--will need to clarify with cardiology, urology on Tuesday--for now will stop until decision finalized
[2024-02-11] MEDS: TYLENOL 650 MG PO (17:53)
[2024-02-11] MEDS: COLACE PO (21:11)
[2024-02-11] MEDS: PACERONE 200 MG PO (21:18)
[2024-02-11] MEDS: TOPROL XL PO (21:18)
--- NOTE | 2024-02-11 22:00 | PTCARENOTE ---
Pt sitting in chair and requesting to get back in bed. Jones draining bloody with clots. Pt has no complaints of pain. Notified urology- will continue to monitor. If blood clots are consistent- hand irrigation will be started.
[2024-02-11 23:38] VITALS: BP 105/61
[2024-02-12 06:00] VITALS: BMI 22.3
[2024-02-12 07:55] VITALS: BP 93/65
[2024-02-12] MEDS: COLACE PO ×2 (07:59→20:45)
[2024-02-12] MEDS: MIRALAX PO (07:59)
[2024-02-12] MEDS: ProAmatine 5 MG PO ×3 (07:59→23:39)
[2024-02-12] MEDS: NON-FORMULARY ITEM 1 APPLIC TOPICAL (08:02)
[2024-02-12] MEDS: AMOXIL 500 MG PO ×2 (08:03→20:44)
[2024-02-12 08:31] LABS: Hematocrit 21.3 % (39.0-52.0); Mean Corp Hgb Conc. 32.9 g/dL (33.0-37.0); Mean Corpuscular Hgb 31.4 pg (27.0-31.0); Mean Corpuscular Volume 95.5 fL (80.0-94.0); Mean Platelet Volume 9.5 fL (7.4-10.4); Platelet Count 180 10^3/uL (130-400); Red Blood Cell Count 2.23 10^6/uL (4.70-6.10); Red Cell Dist. Width 18.8 % (11.5-14.5); White Blood Cell Count 8.4 10^3/uL (4.8-10.8)
[2024-02-12 08:40] LABS: ALT (SGPT) 32 U/L (0-50); AST (SGOT) 39 U/L (17-59); Albumin 2.5 g/dl (3.5-5.0); Alkaline Phosphatase 103 U/L (38-126); Blood Urea Nitrogen 34 mg/dl (9-20); Calcium 7.6 mg/dl (8.4-10.2); Carbon Dioxide 24 mmol/L (22-30); Chloride 105 mmol/L (98-107); Estimated Creatinine Clearance 29 ml/min; Glucose 73 mg/dl (70-99); Potassium 5.2 mmol/L (3.5-5.1); Sodium 135 mmol/L (135-145); Total Bilirubin 0.5 mg/dl (0.2-1.3); Total Protein 5.4 g/dl (6.3-8.2); eGFR 38.06
--- NOTE | 2024-02-12 08:41 | W.PN.UPDATE ---
Update Note
Progress Note Update
spoke with Kim daughter this AM 02/12/24--she was concerned re: restarting the Eliquis since the bleeding had stopped
She indicated that EXTENSIVE discussions were had with the patient and the family re: staying on Eliquis (and bleeding) vs NOT and risking a stroke--unfortunately, after extensive review of the current hospitalization notes, I see no documentation
regarding those discussions so I restarted Eliquis 02/10 at 8PM BUT then stopped after hearing about her concerns so he NEVER got any doses of Eliquis this hospitalization
MOVING FORWARD: family does NOT want to restart Eliquis at all and pt/family will take the risk of stroke over continued bleeding--ALSO spoke with her re: KEEPING the ANDREWS at discharge
--- NOTE | 2024-02-12 09:47 | W.PN.HOSP.TC ---
Addendum entered and electronically signed by Ana Rosa Watson MD 02/12/24 18:37:
I saw and evaluated the patient independently. I reviewed the resident�s note and agree with findings and plan as documented by Dr. Rodriguez.
GENERAL: chronically ill appearing male in no apparent distress
HEENT: NC/AT
HEART: irreg irreg
LUNGS : clear to auscultation bilaterally
ABDOM: soft, nontender, nondistended, + bowel sounds
EXT: no cyanosis, clubbing, or edema
NEUROLOGIC: grossly intact
: greenberg replaced
Acute hematuria with clot retention--apprec urology--s/p cystoscopy 02/06/24 with sclerotic prostatic fossa with friable neovascularity also involving trigone--s/p CBI--voiding trial failed x 2 with rising creat--greenberg replaced--would d/c with greenberg
Acute Blood Loss Anemia--due to Hematuria-- received 4 units pRBC in total---follow--consideration for transfusion
Persistent Atrial Fibrillation - Stable--EKG continues to show atrial fibrillation that is persistent regardless of medication--stopped eliquis permanently--see update notes for details
Chronic HFpEF - Stable--Cardiology consult from 12/29/2023 states that the patient has a history of chronic heart failure with preserved ejection fraction. An echo on 08/01/2023 shows an ejection fraction of 60 to 65%-- Follow Wts daily--consider
restarting lasix as pt LE edema returning--lasix was on hold due to MARIZOL
Enterococcus bacteremia suspected urinary source: Resolving--Likely due to bladder outlet obstruction from clots--Infectious disease suspects Enterococcus--Continue Ampicillin - Enterococcus faecalis culture showed sensitivity to ampicillin--White
blood cell count is 8.1 on 02/05 and continues to show improvement--Infectious disease consult recommends transition to amoxicillin 500 mg PO q12h at the time of discharge through 02/13/2024
MARIZOL on CKD stage III: Stable and Monitoring--Possibly multifactorial - urinary retention from clot obstruction, infection, prerenal from blood loss--Continue to monitor BUN and creatinine--creatinine down to 1.7, cont greenberg, lasix on hold--consider
restarting--greenberg replaced
History of prostate cancer status post XRT--Advised to continue following urologist outpatient
Borderline Underweight - Stable--Patient has a BMI that has fluctuated around 19.5. His fluctuations in BMI put him approximately in the category of being borderline underweight.
Buttocks stage I pressure (decubitus) ulcer present on admission: - Improving--cont wound care--apprec wound care team
CODE: DNR
Original Note:
Today's Communication/Plan
-
1 unit PRBCs, Greenberg cath, monitor urine for hematuria, follow CBC
Assessment / Plan
Assessment / Plan
Acute hematuria with clot retention: Monitoring - Unresolved
Cystoscopy with clot evacuation and fulguration of bleeding showed sclerotic prostatic fossa with friable neovascularity also involving the trigone.
Continuous bladder irrigation discontinued
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
3 units of packed RBCs given during this hospital stay.
Continue to trend CBC - hemoglobin stable at 7.2 on 02/09
Gross hematuria recurred overnight/this AM. No restart of Eliquis at this time. Eliquis to be permanently discontinued per discussion with family
Acute Blood Loss Anemia: Hematuria
Status post 3 units PRBCs
Continue to trend CBC - 7.0 today. Will transfuse 1 unit PRBC
Urinary retention:
Status post multiple failed voiding trials. Greenberg reinserted
Patient is currently status Greenberg. Will continue to monitor for improvement of hematuria.
Likely discharge with Greenberg.
- Persistent Atrial Fibrillation: - Stable
EKG continues to show atrial fibrillation that is persistent regardless of medication.
Monitoring patient on telemetry.
Eliquis discontinued given hematuria
- Chronic HFpEF: - Stable
Cardiology consult on 12/29/2023 states that the patient has a history of chronic heart failure with preserved ejection fraction. An echo on 08/01/2023 shows an ejection fraction of 60 to 65%
Monitoring patient on telemetry. Holding lasix for now. Follow Wts daily
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
Possibly multifactorial - FeNa 1.6% - urinary retention from clot obstruction vs infection vs prerenal from blood loss
Continue to monitor BUN and creatinine. Creatinine improved to 1.7
Appreciate nephro input
greenberg catheter replaced, continue to follow
-Enterococcus bacteremia suspected urinary source: Resolving
Likely due to bladder outlet obstruction from clots--Infectious disease suspects Enterococcus--Continue Ampicillin - Enterococcus faecalis culture showed sensitivity to ampicillin--White blood cell count is 8.1 on 02/05 and continues to show
improvement--Infectious disease consult recommends transition to amoxicillin 500 mg PO q12h at the time of discharge through 02/13/2024
- History of prostate cancer status post XRT:
Advised to continue following urologist outpatient.
- Borderline Underweight: - Stable
Patient has a BMI that has fluctuated around 19.5. His fluctuations in BMI put him approximately in the category of being borderline underweight.
Current nutrition goals have been met and dietary continues to follow the patient.
- Buttocks stage I pressure (decubitus) ulcer present on admission: - Improving
Patient presented with a buttock stage I pressure ulcer on admission. Silicone border foam placed.
Patient continues to be followed by wound care team.
- Ambulatory dysfunction:
PT/OT consult ordered
Assessment from PT/OT stated that the patient required assistance for functional transfers and mobility, limited by deconditioning, decreased endurance, impaired balance, generalized weakness, fatigue. Recommended skilled rehab at discharge. They
continue to follow
DVT prophylaxis: SCDs
CODE: DNR
Anticipated Discharge: Within 24 hours
Subjective/Interval History
-
Date of Service: February 12, 2024
Objective Data
-
Labs:
Laboratory Results
02/12/24
05:47
WBC 8.4
Hgb 7.0 L
Hct 21.3 L
Plt Count 180 D
Sodium 135
Potassium 5.2 H
Chloride 105
Carbon Dioxide 24
BUN 34 H
Creatinine 1.7 H
Glucose 73
Calcium 7.6 L
Total Bilirubin 0.5
AST 39
ALT 32
Alkaline Phosphatase 103
Vital Signs:
Vital Signs
Temp Pulse Resp BP Pulse Ox
98.3 F 60 18 93/68 93
02/12/24 07:55 02/12/24 07:59 02/12/24 07:55 02/12/24 07:59 02/12/24 07:55
I&O
02/11/24 02/12/24 02/13/24
06:59 06:59 06:59
Intake Total 600 / 600 1260 / 1260
Output Total 1500 / 1500 1200 / 1200
Balance -900 / -900 60 / 60
Review of Systems
-
History Source: Patient
Constitutional: Reports No Symptoms
Respiratory: Reports No Symptoms; Denies Cough or Trouble Breathing
Cardiac: Reports No Symptoms; Denies Chest Pain
Abdomen/GI: Reports No Symptoms; Denies Abdominal Pain, Diarrhea or Constipated
Genitourinary: Reports Bleeding
Musculoskeletal: Reports Edema
Neuro: Denies Dizzy or Headache
Physical Exam
-
Respiratory: Non Labored Respirations and Decreased Breath Sounds (Lower lung bases); Negative Wheezes, Rales, Rhonchi or Crackles
Cardiac: S1/S2 and Irregular Rhythm
GI: Soft, Nontender and Nondistended
Genito-urinary: Bloody Urine, Greenberg and Other (mild suprapubic fullness)
Musculoskeletal: No Clubbing, No Cyanosis, Edema, Right Lower Extrem (2+) and Edema, Left Lower Extrem (1+)
Skin: Warm and Dry
Neuro: Awake, Alert and Oriented
Psych: Calm
--- NOTE | 2024-02-12 11:05 | W.PN.URO.CBU ---
Today's Communication / Plan
-
Stable for discharge from standpoint
Assessment / Plan
-
Acute urinary retention w/ clot obstruction - significant hematuria resolved w/ CBI, recurrence 02/02
Radiation cystitis
H/o prostate cancer s/p XRT
MARIZOL on CKD III - improving
hematuria has abated
Recurrent brief episode overnight 02/10 which is resolved
Explained he can expect intermittent episodes of bleeding and this is okay as long as catheter is draining well
Urinary retention has persisted
Discharge with greenberg in place, outpatient follow up with Dr. Tobin for further eval
Diagnosis
-
Date of Service: February 12, 2024
-
Post Op Day: 3 s/p cysto + fulguration
Patient Diagnosis:
Radiation-induced hemorrhagic cystitis
Acute urinary retention w/ clot obstruction
H/o prostate cancer s/p XRT
MARIZOL on CKD III
Subjective
-
some hematuria last night without obstruction
Did not require flushing
Objective
-
Vital Signs
Temp Pulse Resp BP Pulse Ox
98.3 F 60 18 93/68 93
02/12/24 07:55 02/12/24 07:59 02/12/24 07:55 02/12/24 07:59 02/12/24 07:55
Intake and Output
02/11/24 02/12/24 02/13/24
06:59 06:59 06:59
Intake Total 600 / 600 1260 / 1260
Output Total 1500 / 1500 1200 / 1200
Balance -900 / -900 60 / 60
Intake:
Oral fluids 600 / 600 1260 / 1260
Output:
Urine, Greenberg 1500 / 1500 1200 / 1200
Other:
Number of approximated MODERATE 3
amounts of urine
Laboratory Results
02/12/24 05:47
02/12/24 05:47
Physical Exam
-
General - well developed, well nourished, no acute distress
Abdomen - soft, non-tender
- greenberg in place - light pink in bag, clear yellow in tube
--- NOTE | 2024-02-12 11:58 | W.PN.NEPH.PH ---
Today's Communication / Plan
-
- Cr falling
- sign off
Assessment/Plan
-
Assessment
Prostate cancer status post radiation, hemorrhagic cystitis
Recent urinary retention
Acute kidney injury
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
Hyperkalemia
Hyponatremia
Atrial fibrillation
Chronic hypotension on midodrine
E faecalis bacteremia
Plan
maintain greenberg
Cr slowly improving. peak 2.8, current 1.7
continued on abx for bacteremia (stop 02/12)
follow BMP
urine studies with unequivocal sodium. blood on UA.
US with no hydronephrosis
okay for d/c from nephrology perspective with follow up labs and office follow up in 6-8 weeks. we will sign off
-
-
Date of Service: February 12, 2024
CC / HPI / ROS
-
Chief Complaint:
MARIZOL
History of Present Illness:
MARIZOL/Cr down to 1.7
BP stable
K controlled
Na normal at 135
Hgb low 7.2
Review of Systems:
no CP/SOB
he says he feels he is not emptying bladder well still
Labs
-
Labs:
WBC 8.4 10^3/uL (4.8-10.8) 02/12/24 05:47
RBC 2.23 10^6/uL (4.70-6.10) L 02/12/24 05:47
Hgb 7.0 g/dL (13.0-18.0) L 02/12/24 05:47
Hct 21.3 % (39.0-52.0) L 02/12/24 05:47
Plt Count 180 10^3/uL (130-400) D 02/12/24 05:47
Sodium 135 mmol/L (135-145) 02/12/24 05:47
Potassium 5.2 mmol/L (3.5-5.1) H 02/12/24 05:47
Chloride 105 mmol/L (98-107) 02/12/24 05:47
Carbon Dioxide 24 mmol/L (22-30) 02/12/24 05:47
BUN 34 mg/dl (9-20) H 02/12/24 05:47
Creatinine 1.7 mg/dL (0.7-1.3) H 02/12/24 05:47
eGFR 38.06 02/12/24 05:47
Glucose 73 mg/dl (70-99) 02/12/24 05:47
Calcium 7.6 mg/dl (8.4-10.2) L 02/12/24 05:47
Albumin 2.5 g/dl (3.5-5.0) L 02/12/24 05:47
Physical Exam
-
Vital Signs:
Vital Signs
Temp Pulse Resp BP Pulse Ox
98.3 F 60 18 93/68 93
02/12/24 07:55 02/12/24 07:59 02/12/24 07:55 02/12/24 07:59 02/12/24 07:55
Cardiovascular:: Regular rate and rhythm
Respiratory:: Bilateral: Coarse
Lung Excursion:: Normal
Abdomen:: Nontender and Soft
Bowel Sounds:: Normal
Extremity Edema:: None: Bilateral:
Greenberg Catheter: Yes
--- NOTE | 2024-02-12 14:20 | CM ---
i called [facility] and spoke with nursing coal yard supervisor.no bed for patient over the weekend.i called daughter peggy and she did not want to put in another referral and her firsst choice is [facility].
[2024-02-12 15:00] VITALS: BP 114/72
[2024-02-12] MEDS: TYLENOL 650 MG PO ×2 (15:33→20:45)
[2024-02-12] MEDS: LASIX 40 MG IV (15:35)
[2024-02-12 17:09] VITALS: BP 100/63
[2024-02-12 17:33] VITALS: BP 113/67
[2024-02-12 20:30] VITALS: BP 97/59
--- NOTE | 2024-02-12 20:30 | PTCARENOTE ---
1 U. PRBC's infused w/no adverse reaction noted.
[2024-02-12] MEDS: PACERONE 200 MG PO (20:46)
[2024-02-12] MEDS: TOPROL XL PO (23:37)
--- NOTE | 2024-02-12 23:45 | PTCARENOTE ---
Pt w/redness and significant swelling into Rt elbow area. C/O discomfort in rt forearm. Erum FAULKNER notified; u/s ordered for am. Ice pack applied to rt arm.
[2024-02-12 23:57] VITALS: BP 95/64
--- NOTE | 2024-02-13 00:11 | W.PN.UPDATE ---
Update Note
Progress Note Update
PT with edema and redness to RUE. Did have iv in R forearm earlier in stay. Will order ultrasound for am. May use ice pack for edema and redness.
[2024-02-13] MEDS: TYLENOL PO (02:19)
[2024-02-13 05:10] LABS: Hematocrit 24.7 % (39.0-52.0); Hemoglobin 8.1 g/dL (13.0-18.0); Mean Corp Hgb Conc. 32.8 g/dL (33.0-37.0); Mean Corpuscular Hgb 31.9 pg (27.0-31.0); Mean Corpuscular Volume 97.2 fL (80.0-94.0); Mean Platelet Volume 9.2 fL (7.4-10.4); Platelet Count 172 10^3/uL (130-400); Red Blood Cell Count 2.54 10^6/uL (4.70-6.10); Red Cell Dist. Width 18.3 % (11.5-14.5); White Blood Cell Count 7.8 10^3/uL (4.8-10.8)
[2024-02-13 05:31] LABS: Blood Urea Nitrogen 35 mg/dl (9-20); Calcium 7.9 mg/dl (8.4-10.2); Carbon Dioxide 26 mmol/L (22-30); Chloride 104 mmol/L (98-107); Estimated Creatinine Clearance 28 ml/min; Glucose 79 mg/dl (70-99); Potassium 4.9 mmol/L (3.5-5.1); Sodium 135 mmol/L (135-145); eGFR 35.54
[2024-02-13 06:00] VITALS: BMI 22.0
--- NOTE | 2024-02-13 06:43 | PTCARENOTE ---
Sl improvement noted in swelling of Rt arm.
[2024-02-13 07:15] VITALS: BP 120/70
[2024-02-13] MEDS: AMOXIL 500 MG PO ×2 (09:18→20:28)
[2024-02-13] MEDS: TYLENOL 650 MG PO ×3 (09:18→21:24)
[2024-02-13] MEDS: ProAmatine 5 MG PO ×3 (09:19→23:57)
[2024-02-13] MEDS: NON-FORMULARY ITEM 1 APPLIC TOPICAL (09:19)
[2024-02-13] MEDS: COLACE PO ×2 (09:19→20:27)
[2024-02-13 09:35] VITALS: BP 120/70
[2024-02-13 09:40] VITALS: BP 120/70
[2024-02-13 15:09] VITALS: BP 91/55
--- NOTE | 2024-02-13 16:50 | W.PN.URO.CBU ---
Today's Communication / Plan
-
no new intervention may reove greenberg am
Assessment / Plan
-
Acute urinary retention w/ clot obstruction - significant hematuria resolved w/ CBI, recurrence 02/02
Radiation cystitis
H/o prostate cancer s/p XRT
MARIZOL on CKD III - improving
hematuria has abated
Recurrent brief episode overnight 02/10 which is resolved
Explained he can expect intermittent episodes of bleeding and this is okay as long as catheter is draining well
Urinary retention has persisted
Discharge with greenberg in place, outpatient follow up with Dr. Tobin for further eval new paraphimoss reduced r-taped will try and remove greenberg y-tuesday
Diagnosis
-
Date of Service: February 13, 2024
-
Patient Diagnosis:
Post Op Day:
Post Op Day: 3 s/p cysto + fulguration
Patient Diagnosis:
Radiation-induced hemorrhagic cystitis
Acute urinary retention w/ clot obstruction
H/o prostate cancer s/p XRT
MARIZOL on CKD III
Subjective
-
bleding stoped wswollen prpuce since greenberg insrtd
Objective
-
Vital Signs
Temp Pulse Resp BP Pulse Ox
97.8 F 78 18 91/55 96
02/13/24 15:09 02/13/24 16:26 02/13/24 15:09 02/13/24 16:26 02/13/24 15:09
Intake and Output
02/12/24 02/13/24 02/14/24
06:59 06:59 06:59
Intake Total 1260 / 1260 1570 / 1570
Output Total 1200 / 1200 2500 / 2500
Balance 60 / 60 -930 / -930
Intake:
Oral fluids 1260 / 1260 1320 / 1320
Blood Product Amount Infused ( 250 / 250
mL)
Packed Rbc Leukoreduced Unit 250 / 250
[id number]
Output:
Urine, Greenberg 1200 / 1200 1250 / 1250
Urine, Voided 1250 / 1250
Other:
Number of approximated MODERATE 3
amounts of urine
Laboratory Results
02/13/24 04:30
02/13/24 04:30
Review of Systems
-
: No Symptoms
Physical Exam
-
General - well developed, well nourished, no acute distress
Chest - clear bilaterally
Abdomen - soft, non-tender, positive bowel sounds, no CVAT, no incisional pain or distention
Genitalia - normalparaphimosis
Rectal - normal
Skin - warm & dry with no rash
Neuro - AOx3, no motor deficits
Extremities - no clubbing, no cyanosis, no edema
Incision - clean, dry
Dressing - clean, dry, intact
Care Review
Data Reviewed
Discussed with: Hospitalist and Nursing
--- NOTE | 2024-02-13 17:20 | W.PN.HOSP.TC ---
Addendum entered and electronically signed by Surinder Chen MD 02/13/24 17:47:
I saw and evaluated the patient. I reviewed the resident�s note and agree with findings and plan as documented in the resident�s note.
Mostly clear urine
HH stable
Paraphimosis noted today - discussed with uro who reviewed the pt and reduced it.Keep Greenberg in for now.
On going dispo efforts.
Original Note:
Today's Communication/Plan
-
Right cephalic vein thrombosis within the forearm was detected on peripheral vascular ultrasound. Patient has partial paraphimosis and we will continue amoxicillin for 5 more days. Currently awaiting authorization from insurance for skilled
nursing facility to move forward with discharge.
Assessment / Plan
Assessment / Plan
Acute hematuria with clot retention: Monitoring - Unresolved
Cystoscopy with clot evacuation and fulguration of bleeding showed sclerotic prostatic fossa with friable neovascularity also involving the trigone.
Continuous bladder irrigation discontinued
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
3 units of packed RBCs given during this hospital stay.
Continue to trend CBC - hemoglobin stable at 8.1 on 02/12 after 1 unit PRBC transfused
Gross hematuria continues but diminished. No restart of Eliquis at this time. Eliquis to be permanently discontinued per discussion with family
Acute Blood Loss Anemia: Hematuria
Status post 3 units PRBCs
Continue to trend CBC - Hgb 8.1 today after 1 unit PRBC transfused
Urinary retention:
Status post multiple failed voiding trials. Greenberg reinserted
Patient is currently status Greenberg. Will continue to monitor for improvement of hematuria.
Likely discharge with Greenberg.
- Persistent Atrial Fibrillation: - Stable
EKG continues to show atrial fibrillation that is persistent regardless of medication.
Monitoring patient on telemetry.
Eliquis discontinued given hematuria
- Chronic HFpEF: - Stable
Cardiology consult on 12/29/2023 states that the patient has a history of chronic heart failure with preserved ejection fraction. An echo on 08/01/2023 shows an ejection fraction of 60 to 65%
Monitoring patient on telemetry. Holding lasix for now. Follow Wts daily
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
Possibly multifactorial - FeNa 1.6% - urinary retention from clot obstruction vs infection vs prerenal from blood loss
Continue to monitor BUN and creatinine. Creatinine improved to 1.7
Appreciate nephro input
greenberg catheter replaced, continue to follow
-Enterococcus bacteremia suspected urinary source: Resolving
Likely due to bladder outlet obstruction from clots--Infectious disease suspects Enterococcus--Continue Ampicillin - Enterococcus faecalis culture showed sensitivity to ampicillin--White blood cell count is 8.1 on 02/05 and continues to show
improvement--Infectious disease consult recommends transition to amoxicillin 500 mg PO q12h at the time of discharge through 02/13/2024 - Continued for 5 additional days for partial paraphimosis
- Partial Paraphimosis: Monitoring and Treating - 02/12
Patient complains of swollen area of penis showing partial paraphimosis -possible secondary to infectious source. Continue amoxicillin for 5 additional days.
- Right cephalic vein thrombus within the forearm
Peripheral vascular ultrasound showed right cephalic vein thrombus within the forearm. Area is close to or at the site of a previous IV. Patient continued on 5 additional days of amoxicillin to cover for potential infectious process
Patient and family counseled in regards to risk of thrombosis
- History of prostate cancer status post XRT:
Advised to continue following urologist outpatient.
- Borderline Underweight: - Stable
Patient has a BMI that has fluctuated around 19.5. His fluctuations in BMI put him approximately in the category of being borderline underweight.
Current nutrition goals have been met and dietary continues to follow the patient.
- Buttocks stage I pressure (decubitus) ulcer present on admission: - Improving
Patient presented with a buttock stage I pressure ulcer on admission. Silicone border foam placed.
Patient continues to be followed by wound care team.
- Ambulatory dysfunction:
PT/OT consult ordered
Assessment from PT/OT stated that the patient required assistance for functional transfers and mobility, limited by deconditioning, decreased endurance, impaired balance, generalized weakness, fatigue. Recommended skilled rehab at discharge. They
continue to follow
DVT prophylaxis: SCDs
CODE: DNR
Anticipated Discharge: Within 24 hours
Subjective/Interval History
-
Date of Service: February 13, 2024
Met with patient at the bedside. Overall he continues to do well and his hematuria shows slight improvement. He is bothered by a right forearm lesion with edema and redness. The patient did have an IV in that forearm earlier in his hospital stay.
Objective Data
-
Labs:
Laboratory Results
02/13/24
04:30
Sodium 135
Potassium 4.9
Chloride 104
Carbon Dioxide 26
BUN 35 H
Creatinine 1.8 H
Glucose 79
Calcium 7.9 L
Vital Signs:
Vital Signs
Temp Pulse Resp BP Pulse Ox
97.8 F 78 18 91/55 96
02/13/24 15:09 02/13/24 16:26 02/13/24 15:09 02/13/24 16:26 02/13/24 15:09
I&O
02/12/24 02/13/24 02/14/24
06:59 06:59 06:59
Intake Total 1260 / 1260 1570 / 1570
Output Total 1200 / 1200 2500 / 2500
Balance 60 / 60 -930 / -930
Review of Systems
-
History Source: Patient
Constitutional: Reports No Symptoms
EENT: Reports No Symptoms Reported
Respiratory: Reports No Symptoms
Cardiac: Reports No Symptoms
Abdomen/GI: Reports No Symptoms
Breast: Reports No Symptoms
Genitourinary: Reports Bleeding
Musculoskeletal: Reports No Symptoms
Skin: Reports No Symptoms
Neuro: Reports No Symptoms
Endocrine: Reports No Symptoms
Hematologic / Lymphatic: Reports No Symptoms
Allergy / Immunology: Reports No Symptoms
Physical Exam
-
General: Well Developed, Well Nourished, No Apparent Distress and Comfortable
HEENT: Normocephalic, Atraumatic and Moist Mucous Membranes
Respiratory: Clear to Auscultation
Cardiac: Irregular Rhythm
Breast: Deferred by me
GI: Soft, Nontender, Nondistended and Normal Bowel Sounds
Rectal: Deferred by Provider
Genito-urinary: Deferred by me
Musculoskeletal: No Clubbing, No Cyanosis and No Edema
Skin: Warm and Dry
Neuro: Nonfocal/Grossly Intact
Psych: Calm
[2024-02-13] MEDS: TOPROL XL PO (20:28)
[2024-02-13] MEDS: PACERONE 200 MG PO (20:38)
[2024-02-13 23:34] VITALS: BP 100/61
[2024-02-14] MEDS: TYLENOL PO (03:06)
[2024-02-14 06:00] VITALS: BMI 21.7
[2024-02-14 06:58] VITALS: BP 98/54
[2024-02-14 07:11] LABS: % Basophils 0.7 % (0-2); % Immature Granulocytes 0.9 % (0-0.5); % Lymphocytes 8.7 % (20.5-51.1); % Monocytes 12.5 % (1.7-9.3); % Neutrophils 74.2 % (42.2-75.2); Absolute Basophils 0.1 10^3/uL (0-0.2); Absolute Eosinophils 0.2 10^3/uL (0-0.7); Absolute Immature Granulocytes 0.1 10^3/uL (0-0.05); Absolute Lymphocytes 0.6 10^3/uL (1.2-3.4); Absolute Monocytes 0.9 10^3/uL (0.1-0.6); Absolute Neutrophils 5.2 10^3/uL (1.4-6.5); Hematocrit 24.6 % (39.0-52.0); Hemoglobin 8.2 g/dL (13.0-18.0); Mean Corp Hgb Conc. 33.3 g/dL (33.0-37.0); Mean Corpuscular Volume 96.1 fL (80.0-94.0); Mean Platelet Volume 8.9 fL (7.4-10.4); Nucleated Red Blood Cells % 0 % (-); Platelet Count 179 10^3/uL (130-400); Red Blood Cell Count 2.56 10^6/uL (4.70-6.10); Red Cell Dist. Width 18.5 % (11.5-14.5)
[2024-02-14 07:32] LABS: Blood Urea Nitrogen 34 mg/dl (9-20); Carbon Dioxide 25 mmol/L (22-30); Chloride 105 mmol/L (98-107); Estimated Creatinine Clearance 29 ml/min; Glucose 85 mg/dl (70-99); Sodium 136 mmol/L (135-145); eGFR 38.06
--- NOTE | 2024-02-14 08:51 | W.PN.HOSP.TC ---
Addendum entered and electronically signed by Surinder Chen MD 02/14/24 15:21:
I saw and evaluated the patient. I reviewed the resident�s note and agree with findings and plan as documented in the resident�s note.
Patient with improved paraphimosis. The no further hematuria so Greenberg catheter was discontinued this morning. Await spontaneous urination prior to discharge to rehab. He does have a bed in the [facility].
Depending on his voiding trial will discharge to rehab with or without a Greenberg catheter.
Original Note:
Today's Communication/Plan
-
Patient will attempt 1 more voiding trial prior to his upcoming discharge. Patient hopes to be able to void without the assistance of a Greenberg catheter. If patient is unable to urinate on his own we will resume Greenberg and recommend that the patient
continue to see urology in an outpatient setting for further management.
Assessment / Plan
Assessment / Plan
Acute hematuria with clot retention: Monitoring - Unresolved
Cystoscopy with clot evacuation and fulguration of bleeding showed sclerotic prostatic fossa with friable neovascularity also involving the trigone.
Continuous bladder irrigation discontinued
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
3 units of packed RBCs given during this hospital stay.
Continue to trend CBC - hemoglobin stable at 8.2 on 02/13
Gross hematuria continues but diminished. No restart of Eliquis at this time. Eliquis to be permanently discontinued per discussion with family
Acute Blood Loss Anemia: Hematuria
Status post 4 units PRBCs
Continue to trend CBC - Hgb 8.2 today
Urinary retention:
Status post multiple failed voiding trials. Greenberg reinserted
Patient is currently attempting a voiding trial. Will resume greenberg if unable to urinate.
- Persistent Atrial Fibrillation: - Stable
EKG continues to show atrial fibrillation that is persistent regardless of medication.
Monitoring patient on telemetry.
Eliquis discontinued given hematuria
- Chronic HFpEF: - Stable
Cardiology consult on 12/29/2023 states that the patient has a history of chronic heart failure with preserved ejection fraction. An echo on 08/01/2023 shows an ejection fraction of 60 to 65%
Monitoring patient on telemetry. Holding lasix for now. Follow Wts daily
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
Possibly multifactorial - FeNa 1.6% - urinary retention from clot obstruction vs infection vs prerenal from blood loss
Continue to monitor BUN and creatinine. Creatinine improved to 1.7
Appreciate nephro input
greenberg catheter replaced, continue to follow
-Enterococcus bacteremia suspected urinary source: Resolved
Likely due to bladder outlet obstruction from clots--Infectious disease suspects Enterococcus--Continue Ampicillin - Enterococcus faecalis culture showed sensitivity to ampicillin--White blood cell count is 8.1 on 02/05 and continues to show
improvement--Infectious disease consult recommends transition to amoxicillin 500 mg PO q12h at the time of discharge through 02/13/2024 - Continued for 5 additional days for partial paraphimosis
- Partial Paraphimosis: Monitoring and Treating - 02/13
Patient complains of swollen area of penis showing partial paraphimosis -possible secondary to infectious source. Continue amoxicillin for 5 additional days.
- Right cephalic vein thrombus within the forearm
Peripheral vascular ultrasound showed right cephalic vein thrombus within the forearm. Area is close to or at the site of a previous IV. Patient continued on 5 additional days of amoxicillin to cover for potential infectious process
Patient and family counseled in regards to risk of thrombosis
- History of prostate cancer status post XRT:
Advised to continue following urologist outpatient.
- Borderline Underweight: - Stable
Patient has a BMI that has fluctuated around 19.5. His fluctuations in BMI put him approximately in the category of being borderline underweight.
Current nutrition goals have been met and dietary continues to follow the patient.
- Buttocks stage I pressure (decubitus) ulcer present on admission: - Improving
Patient presented with a buttock stage I pressure ulcer on admission. Silicone border foam placed.
Patient continues to be followed by wound care team.
- Ambulatory dysfunction:
PT/OT consult ordered
Assessment from PT/OT stated that the patient required assistance for functional transfers and mobility, limited by deconditioning, decreased endurance, impaired balance, generalized weakness, fatigue. Recommended skilled rehab at discharge. They
continue to follow
DVT prophylaxis: SCDs
CODE: DNR
Anticipated Discharge: Today
Subjective/Interval History
-
Date of Service: February 14, 2024
Met with patient at the bedside. He continues to have a positive outlook and offers no complaints at the present time. Patient is aware of possible voiding trial scheduled for today. He hopes to be discharged in the near future but is aware that
there are no beds available currently at [facility]. He spent time talking about his enjoyment of country [place]. He also shared stories about his father's time in the [employer] serving in [facility].
Objective Data
-
Labs:
Laboratory Results
02/14/24
06:44
WBC 7.0
Hgb 8.2 L
Hct 24.6 L
Plt Count 179
Sodium 136
Potassium 5.0
Chloride 105
Carbon Dioxide 25
BUN 34 H
Creatinine 1.7 H
Glucose 85
Calcium 8.0 L
Vital Signs:
Vital Signs
Temp Pulse Resp BP Pulse Ox
98.1 F 77 16 98/54 92
02/14/24 06:58 02/14/24 06:58 02/14/24 06:58 02/14/24 06:58 02/14/24 06:58
I&O
02/13/24 02/14/24 02/15/24
06:59 06:59 06:59
Intake Total 1570 / 1570 960 / 960
Output Total 2500 / 2500 1200 / 1200
Balance -930 / -930 -240 / -240
Review of Systems
-
History Source: Patient
Constitutional: Reports No Symptoms
EENT: Reports No Symptoms Reported
Respiratory: Reports No Symptoms
Cardiac: Reports No Symptoms
Abdomen/GI: Reports No Symptoms
Breast: Reports No Symptoms
Genitourinary: Reports Difficulty Voiding
Musculoskeletal: Reports No Symptoms
Skin: Reports No Symptoms
Neuro: Reports No Symptoms
Endocrine: Reports No Symptoms
Hematologic / Lymphatic: Reports No Symptoms
Allergy / Immunology: Reports No Symptoms
Physical Exam
-
General: Well Developed, Well Nourished, No Apparent Distress and Comfortable
HEENT: Normocephalic, Atraumatic and Moist Mucous Membranes
Respiratory: Clear to Auscultation
Cardiac: Irregular Rhythm
Breast: Deferred by me
GI: Soft, Nontender, Nondistended and Normal Bowel Sounds
Rectal: Deferred by Provider
Genito-urinary: Deferred by me
Musculoskeletal: No Clubbing, No Cyanosis and No Edema
Skin: Warm and Dry
Neuro: Nonfocal/Grossly Intact
Psych: Calm
--- NOTE | 2024-02-14 08:55 | W.PN.URO.CBU ---
Today's Communication / Plan
-
remve greenberg can go to [facility] as bed avaiable but pt must void prior to discharge
Assessment / Plan
-
Acute urinary retention w/ clot obstruction - significant hematuria resolved w/ CBI, recurrence 02/02
Radiation cystitis
H/o prostate cancer s/p XRT
MARIZOL on CKD III - improving
hematuria has abated
Recurrent brief episode overnight 02/10 which is resolved
Explained he can expect intermittent episodes of bleeding and this is okay as long as catheter is draining well
Discharge with greenberg in place, outpatient follow up with Dr. Tobin for further eval new paraphimoss reduced r
Diagnosis
-
Date of Service: February 14, 2024
-
Patient Diagnosis:
Post Op Day:
Patient Diagnosis:
Post Op Day:
Post Op Day: 3 s/p cysto + fulguration
Patient Diagnosis:
Radiation-induced hemorrhagic cystitis
Acute urinary retention w/ clot obstruction
H/o prostate cancer s/p XRT
MARIZOL on CKD III
Subjective
-
no hematuria
Objective
-
Vital Signs
Temp Pulse Resp BP Pulse Ox
98.1 F 77 16 98/54 92
02/14/24 06:58 02/14/24 06:58 02/14/24 06:58 02/14/24 06:58 02/14/24 06:58
Intake and Output
02/13/24 02/14/24 02/15/24
06:59 06:59 06:59
Intake Total 1570 / 1570 960 / 960
Output Total 2500 / 2500 1200 / 1200
Balance -930 / -930 -240 / -240
Intake:
Oral fluids 1320 / 1320 960 / 960
Blood Product Amount Infused ( 250 / 250
mL)
Packed Rbc Leukoreduced Unit 250 / 250
[id number]
Output:
Urine, Greenberg 1250 / 1250 1200 / 1200
Urine, Voided 1250 / 1250
Laboratory Results
02/14/24 06:44
02/14/24 06:44
Review of Systems
-
: No Symptoms
Physical Exam
-
General - well developed, well nourished, no acute distress
Chest - clear bilaterally
Abdomen - soft, non-tender, positive bowel sounds, no CVAT, no incisional pain or distention
Genitalia - normal
Rectal - normal
Skin - warm & dry with no rash
Neuro - AOx3, no motor deficits
Extremities - no clubbing, no cyanosis, no edema
Incision - clean, dry
Dressing - clean, dry, intact
[2024-02-14] MEDS: NON-FORMULARY ITEM 1 APPLIC TOPICAL (09:17)
[2024-02-14] MEDS: ProAmatine 5 MG PO ×2 (09:18→16:48)
[2024-02-14] MEDS: TYLENOL 650 MG PO ×2 (09:18→14:44)
[2024-02-14] MEDS: COLACE PO (09:18)
[2024-02-14] MEDS: FLUSH (NSS) 1 FLUSH IV (09:20)
--- NOTE | 2024-02-14 12:18 | CM ---
Addendum entered by Ruthann Tang RN 02/14/24 13:17:
Daughter Kim notified of auth and dc.She requested to call dgt Mariza [phone] . Mariza was upset that Jones was removed.
Jones removed DTV 3:15 . As per Jones may need to be replaced. notified to call dgt and answer her questions.
Family requested ambulance transport.Medical nec form completed.
Original Note:
Called [facility] spoke with Meek levi obtained for [facility] from 02/14/24 to 02/20/24 auth # [id number]. NRD call [phone] option 5 .
Lacie José given information . She will let know if bed available for today.
Obtained auth for ambulance Acute care auth # [id number] . Needs medical nec form.
[facility]
report [phone]
fax [phone]
Plan to [facility] when bed available
[2024-02-14] MEDS: AMOXIL 500 MG PO (14:44)
[2024-02-14 15:50] VITALS: BP 105/65
--- NOTE | 2024-02-14 16:06 | W.DCSUMMARY ---
Discharge Summary
Discharge Data
Date of Admission: 01/30/24
Date of Discharge: 02/14/24
-
Pending Results: No
Hospital Course
Patient is an 89-year-old male with a history of documented A-fib on Eliquis who presented to the emergency room for evaluation of hematuria and difficulty urinating. He recently had an admission in December for which she had hematuria and cystoscopy
done by Dr. Tobin. He believes that he had been doing well since his discharge until the day before he represented to the emergency department. He started to notice a small amount of blood in his urine in the morning and then said he passed
some clots and had difficulty putting out urine since then. He had increasing abdominal pain. In the emergency department bladder scan showed greater than 500 cc of retained urine. Initial attempts at placing a three-way Jones catheter were
unsuccessful and urology was consulted to assist with catheter placement and to follow the patient. His complete metabolic panel showed a creatinine of 2.4 which was increased from a baseline of 1.6 from prior labs. Patient was also given IV
Rocephin prophylaxis. Patient was admitted to [facility] ICU for hypotension and anemia secondary to hematuria.
In the ICU the patient was stable off of pressors. Eliquis was held. Hypotension remained and hemoglobin dropped to 7.4. IV fluids were administered and 1 unit of PRBCs were administered for anemia. Cardiac disease was noted, and severe
pulmonary hypertension with valvular disease was noted. Urology continue to follow the patient and ongoing continuous bladder irrigation was administered to ensure urine flow and the passing of clots. The patient required multiple manual
irrigations of the CBI to ensure flow. Urine culture grew Enterococcus which was sensitive to ampicillin. Ampicillin administered for UTI. WBCs were trended and continued to improve during antibiotic therapy. As IV ampicillin took effect the
patient noted that he no longer felt as if he had a fever. Patient showed improvement in regards to his ongoing hematuria but unfortunately his hematuria resumed again after 1 day of cessation. Patient continued to go back and forth between
durations of time where he had mild hematuria and times when he had no hematuria. Multiple voiding trials were attempted but unfortunately the patient struggled to void normally. Jones was resumed at the recommendation of urology due to frequent
blood clots obstructing his urethra. Mild paraphimosis was detected and urology assessed the patient and reduced it. After UTI resolved, one final voiding trial was attempted and the patient successfully was able to urinate on his own. Jones was
discontinued and the patient believes that he is ready for discharge at the present time. Patient's current lab values are stable including hemoglobin and hematocrit. Patient is currently at his baseline kidney function with a creatinine level
between 1.7 and 1.8.
The patient has reached maximal benefit from this hospital stay and is appropriate for discharge at the present time. The patient has been recommended to follow-up with his outpatient providers including his primary care provider, urologist,
colors custodian, and multimedia technician. Patient's hemoglobin and hematocrit should be checked in the outpatient setting. Patient was not resumed on Eliquis due to fears of recurrent bleeding at the request of the patient and his family. Patient is aware of
the risks and benefits of not resuming Eliquis and has been provided supportive counseling. Patient is slated to be discharged to [facility] nursing facility.
Discharge Plan
-
Patient Disposition: Correction/SNF
Discharge Diagnosis/Procedures: E. faecalis bacteremia due to bladder outlet obstruction from clot retention
Recurrent radiation hemorrhagic cystitis
MARIZOL on CKD3
Acute blood loss anemia status posttransfusion
Atrial fibrillation on Eliquis
Diet: 2 Gram Sodium
Activity: As tolerated
Driving Restrictions: No driving
Blood Work: CBC and BMP in one week
Other Services: PT and OT
Activity Restrictions/Additional Instructions:
Voiding trial starting of the next week if no further bleeding and more mobile.
Referrals:
Eliezer Rogers MD [Active] - in two weeks
Epi Su DO [Family Provider] - in one week
Prescriptions:
New
midodrine 5 mg Tablet
5 mg PO Q8 Qty: 1 0RF
amoxicillin 500 mg Capsule
500 mg PO Q12H Qty: 10 0RF
Rx Instructions:
Take one in the morning and one in the evening til 02/16
Continued
amiodarone [Pacerone] 200 mg tablet
200 mg PO HS
metoprolol succinate 25 mg Tablet Extended Release 24 Hr
12.5 mg PO HS Qty: 60 1RF
furosemide 40 mg Tablet
40 mg PO DAILY
Patient Comments:
01/30/24: patient's daughter states they sometimes vary the dosage depending on the patient's fluid retention.
clobetasol 0.05 % Solution
1 applic TOPICAL DAILY
furosemide 20 mg Tablet
20 mg PO MOWEFR PRN (Reason: wt gain/fluid retention)
Held
Eliquis 2.5 mg tablet
2.5 mg PO BID
Hold Instructions: Resume on 02/07/24. resume if no further hematuria
Discontinued
midodrine 2.5 mg Tablet
1.25 mg PO BID
Discharge Orders:
Discharge Patient (As Directed); Ordered 02/14/24
Ordered By: Itzel Boykin
Discharge Date and Time
Print Language: TELUGU
--- NOTE | 2024-02-14 16:52 | W.DS.TRANS ---
DC Summary - Clinical Practice Consultant
-
Discharge Instructions:
Sleep Apnea Risk Intermediate
Discharge Diagnosis/Procedures E. faecalis bacteremia due to bladder outlet
obstruction from clot retention
Recurrent radiation hemorrhagic cystitis
MARIZOL on CKD3
Acute blood loss anemia status posttransfusion
Atrial fibrillation on Eliquis
Diet 2 Gram Sodium
Activity As tolerated
Driving Restrictions No driving
Blood Work CBC and BMP in one week
Other Services PT,OT
Instructions:
Stand-Alone Forms:
Changes to Home Medications: Yes
Discharge Medications:
DC Medications w/original date entered in [facility]
amiodarone 200 mg tablet (Pacerone) 200 mg PO HS Arrhythmia 12/26/23
metoprolol succinate 25 mg tablet,extended release 24 hr 12.5 mg (1/2 x 25 mg) PO HS Blood Pressure #60 tabs 12/30/23
clobetasol 0.05 % scalp solution 1 applic topical DAILY scalp 01/30/24
furosemide 20 mg tablet 20 mg PO MOWEFR PRN wt gain/fluid retention 01/30/24
furosemide 40 mg tablet 40 mg PO DAILY Fluid Retention/Swelling 01/30/24
midodrine 5 mg tablet 5 mg PO Q8 #1 tab 02/04/24
amoxicillin 500 mg capsule 500 mg PO Q12H Urinary issue #10 caps 02/14/24
Home Medication Changes
Added:
Amoxicillin 500mg - BID until 02/16
midodrine 5 mg tablet 5 mg PO Q8 #1 tab 02/04/24
Removed:
apixaban 2.5 mg tablet (Eliquis) 2.5 mg PO BID Blood Clot Prevention/Tx 01/30/24
Pending Results: No
--- NOTE | 2024-02-14 18:30 | PTCARENOTE ---
greenberg removed this am at 0915, patient voided 100 ml of clear yellow urine at 1500, 1600 and 1730 without difficulty.plan of care on going
== END 2024-02-14 19:38 | DRG 668 ==
LOC: 4 EAST ACU 13:40
PROVIDERS: Emergency Medicine; Internal Medicine; Nurse Practitioner Family; Specialist; Student in an Organized Health Care Education/Training Program; ADMITTING PHYSICIAN Internal Medicine; CONSULT PHYSICIAN Internal Medicine Infectious Disease; CONSULT PHYSICIAN Surgery; EMERGENCY PHYSICIAN Emergency Medicine; FAMILY PHYSICIAN Internal Medicine; OTHER PHYSICIAN Internal Medicine Critical Care Medicine; OTHER PHYSICIAN Specialist
PROC: 30233N1 Transfusion of Nonautologous Red Blood Cells into Peripheral Vein, Percutaneous Approach (ICD-10-PCS; 2024-01-30)
PROC: 0TCB8ZZ Extirpation of Matter from Bladder, Via Natural or Artificial Opening Endoscopic (ICD-10-PCS; 2024-02-06)
PROC: 0T5B8ZZ Destruction of Bladder, Via Natural or Artificial Opening Endoscopic (ICD-10-PCS; 2024-02-06)
DX: N30.41 Irradiation cystitis with hematuria (principal); R57.1 Hypovolemic shock; D62 Acute posthemorrhagic anemia; I48.19 Other persistent atrial fibrillation; N17.9 Acute kidney failure, unspecified; R78.81 Bacteremia; E87.1 Hypo-osmolality and hyponatremia; I42.9 Cardiomyopathy, unspecified; I13.0 Hypertensive heart and chronic kidney disease with heart failure and stage 1 through stage 4 chronic kidney disease, or unspecified chronic kidney disease; I50.32 Chronic diastolic (congestive) heart failure; Z68.1 Body mass index [BMI] 19.9 or less, adult; Z66 Do not resuscitate; I27.20 Pulmonary hypertension, unspecified; N18.32 Chronic kidney disease, stage 3b; I34.0 Nonrheumatic mitral (valve) insufficiency; L89.321 Pressure ulcer of left buttock, stage 1; L89.311 Pressure ulcer of right buttock, stage 1; I95.9 Hypotension, unspecified; N39.0 Urinary tract infection, site not specified; B95.2 Enterococcus as the cause of diseases classified elsewhere; N32.0 Bladder-neck obstruction; R63.6 Underweight; G25.0 Essential tremor; N47.2 Paraphimosis; Y84.2 Radiological procedure and radiotherapy as the cause of abnormal reaction of the patient, or of later complication, without mention of misadventure at the time of the procedure; E87.5 Hyperkalemia; Z96.641 Presence of right artificial hip joint; Z79.01 Long term (current) use of anticoagulants; Z79.899 Other long term (current) drug therapy; Z87.19 Personal history of other diseases of the digestive system; Z86.79 Personal history of other diseases of the circulatory system; Z85.46 Personal history of malignant neoplasm of prostate; Z92.3 Personal history of irradiation
CPT/HCPCS: 71045; 76770; 80048; 80053; 80202; 81003; 81015; 81099; 82533; 82570; 82668; 83605; 83735; 84300; 84443; 85014; 85018; 85025; 85027; 85610; 85730; 86850; 86900; 86901; 86920; 87040; 87077; 87186; 87205; 93005; 93306; 93971; 96374; 97116; 97162; 97167; 97535; 99285; P9016

== ENCOUNTER → 2024-02-17 10:35 | Outpatient (REF) | payer OTHER, SELFPAY ==
[2024-02-17 11:21] LABS: % Basophils 0.7 % (0-2); % Eosinophils 1.8 % (0-6); % Immature Granulocytes 0.6 % (0-0.5); % Lymphocytes 8.4 % (20.5-51.1); % Monocytes 13.3 % (1.7-9.3); % Neutrophils 75.2 % (42.2-75.2); Absolute Basophils 0.1 10^3/uL (0-0.2); Absolute Eosinophils 0.1 10^3/uL (0-0.7); Absolute Lymphocytes 0.6 10^3/uL (1.2-3.4); Absolute Neutrophils 5.4 10^3/uL (1.4-6.5); Hematocrit 24.5 % (39.0-52.0); Hemoglobin 8.1 g/dL (13.0-18.0); Mean Corp Hgb Conc. 33.1 g/dL (33.0-37.0); Mean Corpuscular Volume 96.8 fL (80.0-94.0); Mean Platelet Volume 9.6 fL (7.4-10.4); Nucleated Red Blood Cells % 0 % (-); Platelet Count 179 10^3/uL (130-400); Red Blood Cell Count 2.53 10^6/uL (4.70-6.10); Red Cell Dist. Width 18.6 % (11.5-14.5); White Blood Cell Count 7.2 10^3/uL (4.8-10.8)
[2024-02-17 12:46] LABS: Blood Urea Nitrogen 43 mg/dl (9-20); Carbon Dioxide 26 mmol/L (22-30); Chloride 105 mmol/L (98-107); Glucose 93 mg/dl (70-99); Potassium 4.9 mmol/L (3.5-5.1); Sodium 133 mmol/L (135-145); eGFR 29.53
[2024-02-17 12:56] LABS: Calcium 8.1 mg/dl (8.4-10.2)
== END ==
LOC: OLABP 10:35
PROVIDERS: ATTENDING PHYSICIAN Family Medicine
DX: N18.30 Chronic kidney disease, stage 3 unspecified (principal); I25.10 Atherosclerotic heart disease of native coronary artery without angina pectoris; D64.9 Anemia, unspecified; I13.0 Hypertensive heart and chronic kidney disease with heart failure and stage 1 through stage 4 chronic kidney disease, or unspecified chronic kidney disease; M62.59 Muscle wasting and atrophy, not elsewhere classified, multiple sites; Z85.46 Personal history of malignant neoplasm of prostate; R31.9 Hematuria, unspecified; R78.81 Bacteremia; B95.2 Enterococcus as the cause of diseases classified elsewhere; N30.41 Irradiation cystitis with hematuria; I34.0 Nonrheumatic mitral (valve) insufficiency; I50.9 Heart failure, unspecified; N17.9 Acute kidney failure, unspecified
CPT/HCPCS: 80048; 85025

== ENCOUNTER → 2024-02-20 09:25 | Outpatient (REF) | payer OTHER, SELFPAY ==
[2024-02-20 11:25] LABS: % Basophils 0.9 % (0-2); % Immature Granulocytes 0.5 % (0-0.5); % Lymphocytes 9.9 % (20.5-51.1); % Monocytes 14.6 % (1.7-9.3); % Neutrophils 70.1 % (42.2-75.2); Absolute Basophils 0.1 10^3/uL (0-0.2); Absolute Eosinophils 0.2 10^3/uL (0-0.7); Absolute Lymphocytes 0.6 10^3/uL (1.2-3.4); Absolute Monocytes 0.8 10^3/uL (0.1-0.6); Blood Urea Nitrogen 43 mg/dl (9-20); Carbon Dioxide 23 mmol/L (22-30); Chloride 105 mmol/L (98-107); Glucose 88 mg/dl (70-99); Hematocrit 23.9 % (39.0-52.0); Hemoglobin 7.5 g/dL (13.0-18.0); Mean Corp Hgb Conc. 31.4 g/dL (33.0-37.0); Mean Corpuscular Hgb 30.9 pg (27.0-31.0); Mean Corpuscular Volume 98.4 fL (80.0-94.0); Mean Platelet Volume 9.3 fL (7.4-10.4); Nucleated Red Blood Cells % 0 % (-); Platelet Count 181 10^3/uL (130-400); Potassium 4.5 mmol/L (3.5-5.1); Red Blood Cell Count 2.43 10^6/uL (4.70-6.10); Red Cell Dist. Width 18.7 % (11.5-14.5); Sodium 135 mmol/L (135-145); White Blood Cell Count 5.8 10^3/uL (4.8-10.8); eGFR 26.48
== END ==
LOC: OLABP 09:25
PROVIDERS: ATTENDING PHYSICIAN Family Medicine
DX: D64.9 Anemia, unspecified (principal); I13.0 Hypertensive heart and chronic kidney disease with heart failure and stage 1 through stage 4 chronic kidney disease, or unspecified chronic kidney disease; N18.30 Chronic kidney disease, stage 3 unspecified; M62.59 Muscle wasting and atrophy, not elsewhere classified, multiple sites; R31.9 Hematuria, unspecified; R78.81 Bacteremia; B95.2 Enterococcus as the cause of diseases classified elsewhere; N17.9 Acute kidney failure, unspecified; N30.41 Irradiation cystitis with hematuria; D69.6 Thrombocytopenia, unspecified; Z95.810 Presence of automatic (implantable) cardiac defibrillator; D62 Acute posthemorrhagic anemia; I48.19 Other persistent atrial fibrillation; I34.0 Nonrheumatic mitral (valve) insufficiency; I36.1 Nonrheumatic tricuspid (valve) insufficiency; I50.9 Heart failure, unspecified; G25.0 Essential tremor; I25.10 Atherosclerotic heart disease of native coronary artery without angina pectoris
CPT/HCPCS: 36415; 80048; 85025

== ENCOUNTER → 2024-02-21 10:31 | Outpatient (REF) | payer OTHER, SELFPAY ==
[2024-02-21 11:36] LABS: % Immature Granulocytes 0.3 % (0-0.5); % Lymphocytes 11.5 % (20.5-51.1); % Monocytes 14.3 % (1.7-9.3); % Neutrophils 68.9 % (42.2-75.2); Absolute Basophils 0.1 10^3/uL (0-0.2); Absolute Eosinophils 0.2 10^3/uL (0-0.7); Absolute Lymphocytes 0.7 10^3/uL (1.2-3.4); Absolute Monocytes 0.8 10^3/uL (0.1-0.6); Absolute Neutrophils 3.9 10^3/uL (1.4-6.5); Hematocrit 24.7 % (39.0-52.0); Hemoglobin 7.8 g/dL (13.0-18.0); Mean Corp Hgb Conc. 31.6 g/dL (33.0-37.0); Mean Corpuscular Hgb 31.1 pg (27.0-31.0); Mean Corpuscular Volume 98.4 fL (80.0-94.0); Mean Platelet Volume 9.6 fL (7.4-10.4); Nucleated Red Blood Cells % 0 % (-); Platelet Count 176 10^3/uL (130-400); Red Blood Cell Count 2.51 10^6/uL (4.70-6.10); Red Cell Dist. Width 18.5 % (11.5-14.5); White Blood Cell Count 5.7 10^3/uL (4.8-10.8)
[2024-02-21 11:37] LABS: Blood Urea Nitrogen 42 mg/dl (9-20); Calcium 8.2 mg/dl (8.4-10.2); Carbon Dioxide 25 mmol/L (22-30); Chloride 106 mmol/L (98-107); Glucose 85 mg/dl (70-99); Potassium 4.4 mmol/L (3.5-5.1); Sodium 135 mmol/L (135-145); eGFR 26.48
== END ==
LOC: OLABP 10:31
PROVIDERS: ATTENDING PHYSICIAN Family Medicine
DX: N18.30 Chronic kidney disease, stage 3 unspecified (principal); D64.9 Anemia, unspecified; I13.0 Hypertensive heart and chronic kidney disease with heart failure and stage 1 through stage 4 chronic kidney disease, or unspecified chronic kidney disease; R78.81 Bacteremia; R31.9 Hematuria, unspecified
CPT/HCPCS: 36415; 80048; 85025

== ENCOUNTER → 2024-02-23 10:17 | Outpatient (REF) | payer OTHER, SELFPAY ==
[2024-02-23 11:52] LABS: Blood Urea Nitrogen 43 mg/dl (9-20); Calcium 8.2 mg/dl (8.4-10.2); Carbon Dioxide 25 mmol/L (22-30); Chloride 105 mmol/L (98-107); Glucose 101 mg/dl (70-99); Potassium 4.9 mmol/L (3.5-5.1); Sodium 135 mmol/L (135-145); eGFR 27.93
== END ==
LOC: OLABP 10:17
PROVIDERS: ATTENDING PHYSICIAN Family Medicine
DX: D64.9 Anemia, unspecified (principal); I13.0 Hypertensive heart and chronic kidney disease with heart failure and stage 1 through stage 4 chronic kidney disease, or unspecified chronic kidney disease; M62.59 Muscle wasting and atrophy, not elsewhere classified, multiple sites; R31.9 Hematuria, unspecified; R78.81 Bacteremia; B95.2 Enterococcus as the cause of diseases classified elsewhere; N18.30 Chronic kidney disease, stage 3 unspecified; N17.9 Acute kidney failure, unspecified; D69.6 Thrombocytopenia, unspecified; Z95.810 Presence of automatic (implantable) cardiac defibrillator; N30.41 Irradiation cystitis with hematuria; D62 Acute posthemorrhagic anemia; I48.19 Other persistent atrial fibrillation; I34.0 Nonrheumatic mitral (valve) insufficiency; I50.9 Heart failure, unspecified; I25.10 Atherosclerotic heart disease of native coronary artery without angina pectoris; I36.1 Nonrheumatic tricuspid (valve) insufficiency
CPT/HCPCS: 80048

== ENCOUNTER → 2024-02-24 11:10 | Outpatient (REF) | payer OTHER, SELFPAY ==
[2024-02-24 12:28] LABS: Blood Urea Nitrogen 49 mg/dl (9-20); Carbon Dioxide 24 mmol/L (22-30); Chloride 104 mmol/L (98-107); Glucose 84 mg/dl (70-99); Potassium 4.6 mmol/L (3.5-5.1); Sodium 134 mmol/L (135-145); eGFR 26.48
== END ==
LOC: OLABP 11:10
PROVIDERS: ATTENDING PHYSICIAN Family Medicine
DX: N18.30 Chronic kidney disease, stage 3 unspecified (principal); I25.10 Atherosclerotic heart disease of native coronary artery without angina pectoris; D64.9 Anemia, unspecified; I13.0 Hypertensive heart and chronic kidney disease with heart failure and stage 1 through stage 4 chronic kidney disease, or unspecified chronic kidney disease; I36.1 Nonrheumatic tricuspid (valve) insufficiency; G25.0 Essential tremor; M62.59 Muscle wasting and atrophy, not elsewhere classified, multiple sites; R31.9 Hematuria, unspecified; R78.81 Bacteremia; B95.2 Enterococcus as the cause of diseases classified elsewhere; N30.41 Irradiation cystitis with hematuria; D62 Acute posthemorrhagic anemia; I48.19 Other persistent atrial fibrillation; I34.0 Nonrheumatic mitral (valve) insufficiency; I50.9 Heart failure, unspecified; N17.9 Acute kidney failure, unspecified; D69.6 Thrombocytopenia, unspecified; Z95.810 Presence of automatic (implantable) cardiac defibrillator
CPT/HCPCS: 36415; 80048

== ENCOUNTER → 2024-02-27 12:35 | Outpatient (REF) | payer OTHER, SELFPAY ==
[2024-02-27 14:56] LABS: % Basophils 0.7 % (0-2); % Eosinophils 5.8 % (0-6); % Immature Granulocytes 0.5 % (0-0.5); % Monocytes 15.5 % (1.7-9.3); % Neutrophils 65.5 % (42.2-75.2); Absolute Eosinophils 0.4 10^3/uL (0-0.7); Absolute Lymphocytes 0.7 10^3/uL (1.2-3.4); Absolute Monocytes 0.9 10^3/uL (0.1-0.6); Absolute Neutrophils 3.9 10^3/uL (1.4-6.5); Hematocrit 24.3 % (39.0-52.0); Hemoglobin 7.7 g/dL (13.0-18.0); Mean Corp Hgb Conc. 31.7 g/dL (33.0-37.0); Mean Corpuscular Hgb 30.6 pg (27.0-31.0); Mean Corpuscular Volume 96.4 fL (80.0-94.0); Mean Platelet Volume 9.9 fL (7.4-10.4); Nucleated Red Blood Cells % 0 % (-); Platelet Count 187 10^3/uL (130-400); Red Blood Cell Count 2.52 10^6/uL (4.70-6.10); Red Cell Dist. Width 17.9 % (11.5-14.5)
[2024-02-27 15:15] LABS: Blood Urea Nitrogen 51 mg/dl (9-20); Carbon Dioxide 29 mmol/L (22-30); Chloride 101 mmol/L (98-107); Glucose 88 mg/dl (70-99); Potassium 4.1 mmol/L (3.5-5.1); Sodium 135 mmol/L (135-145); eGFR 26.48
== END ==
LOC: OLABP 12:35
PROVIDERS: ATTENDING PHYSICIAN Family Medicine
DX: N18.30 Chronic kidney disease, stage 3 unspecified (principal); I25.10 Atherosclerotic heart disease of native coronary artery without angina pectoris; D64.9 Anemia, unspecified; I13.0 Hypertensive heart and chronic kidney disease with heart failure and stage 1 through stage 4 chronic kidney disease, or unspecified chronic kidney disease; I36.1 Nonrheumatic tricuspid (valve) insufficiency; G25.0 Essential tremor; M62.59 Muscle wasting and atrophy, not elsewhere classified, multiple sites; R31.9 Hematuria, unspecified; R78.81 Bacteremia; B95.2 Enterococcus as the cause of diseases classified elsewhere; N30.41 Irradiation cystitis with hematuria; D62 Acute posthemorrhagic anemia; I48.19 Other persistent atrial fibrillation; I34.0 Nonrheumatic mitral (valve) insufficiency; I50.9 Heart failure, unspecified; N17.9 Acute kidney failure, unspecified; D69.6 Thrombocytopenia, unspecified; Z95.810 Presence of automatic (implantable) cardiac defibrillator
CPT/HCPCS: 80048; 85025

== ENCOUNTER → 2024-03-10 11:00 | Outpatient (REF) | payer OTHER, SELFPAY ==
[2024-03-10 11:44] LABS: Hemoglobin 8.5 g/dL (13.0-18.0); Mean Corp Hgb Conc. 32.7 g/dL (33.0-37.0); Mean Corpuscular Hgb 30.8 pg (27.0-31.0); Mean Corpuscular Volume 94.2 fL (80.0-94.0); Mean Platelet Volume 9.8 fL (7.4-10.4); Platelet Count 175 10^3/uL (130-400); Red Blood Cell Count 2.76 10^6/uL (4.70-6.10); Red Cell Dist. Width 17.4 % (11.5-14.5); White Blood Cell Count 6.5 10^3/uL (4.8-10.8)
[2024-03-10 11:46] LABS: Blood Urea Nitrogen 48 mg/dl (9-20); Calcium 8.5 mg/dl (8.4-10.2); Carbon Dioxide 26 mmol/L (22-30); Chloride 100 mmol/L (98-107); Glucose 87 mg/dl (70-99); Potassium 5.4 mmol/L (3.5-5.1); Sodium 133 mmol/L (135-145); eGFR 38.06
== END ==
LOC: OLABP 11:00
PROVIDERS: ATTENDING PHYSICIAN Family Medicine
DX: I25.10 Atherosclerotic heart disease of native coronary artery without angina pectoris (principal); Z85.46 Personal history of malignant neoplasm of prostate; M62.81 Muscle weakness (generalized); N30.41 Irradiation cystitis with hematuria; N18.30 Chronic kidney disease, stage 3 unspecified; M62.59 Muscle wasting and atrophy, not elsewhere classified, multiple sites; K21.9 Gastro-esophageal reflux disease without esophagitis
CPT/HCPCS: 36415; 80048; 85027

== ENCOUNTER → 2024-03-19 10:41 | Outpatient (REF) | payer OTHER, SELFPAY ==
[2024-03-19 11:47] LABS: % Basophils 0.5 % (0-2); % Eosinophils 6.9 % (0-6); % Immature Granulocytes 0.8 % (0-0.5); % Monocytes 14.9 % (1.7-9.3); % Neutrophils 65.9 % (42.2-75.2); Absolute Eosinophils 0.4 10^3/uL (0-0.7); Absolute Immature Granulocytes 0.1 10^3/uL (0-0.05); Absolute Lymphocytes 0.7 10^3/uL (1.2-3.4); Absolute Monocytes 0.9 10^3/uL (0.1-0.6); Hematocrit 25.5 % (39.0-52.0); Mean Corp Hgb Conc. 31.4 g/dL (33.0-37.0); Mean Corpuscular Hgb 30.2 pg (27.0-31.0); Mean Corpuscular Volume 96.2 fL (80.0-94.0); Mean Platelet Volume 9.2 fL (7.4-10.4); Nucleated Red Blood Cells % 0 % (-); Platelet Count 206 10^3/uL (130-400); Red Blood Cell Count 2.65 10^6/uL (4.70-6.10); Red Cell Dist. Width 17.4 % (11.5-14.5); White Blood Cell Count 6.1 10^3/uL (4.8-10.8)
[2024-03-19 14:01] LABS: Blood Urea Nitrogen 50 mg/dl (9-20); Calcium 8.4 mg/dl (8.4-10.2); Carbon Dioxide 31 mmol/L (22-30); Chloride 99 mmol/L (98-107); Glucose 87 mg/dl (70-99); Potassium 4.5 mmol/L (3.5-5.1); Sodium 137 mmol/L (135-145)
== END ==
LOC: OLABP 10:41
PROVIDERS: ATTENDING PHYSICIAN Family Medicine
DX: I50.9 Heart failure, unspecified (principal); I13.0 Hypertensive heart and chronic kidney disease with heart failure and stage 1 through stage 4 chronic kidney disease, or unspecified chronic kidney disease; R31.9 Hematuria, unspecified; R78.81 Bacteremia; B95.2 Enterococcus as the cause of diseases classified elsewhere; N30.41 Irradiation cystitis with hematuria; D62 Acute posthemorrhagic anemia; N17.9 Acute kidney failure, unspecified; D69.6 Thrombocytopenia, unspecified; I48.19 Other persistent atrial fibrillation; N18.30 Chronic kidney disease, stage 3 unspecified; Z85.46 Personal history of malignant neoplasm of prostate; D64.9 Anemia, unspecified; I25.10 Atherosclerotic heart disease of native coronary artery without angina pectoris
CPT/HCPCS: 36415; 80048; 85025

== ENCOUNTER → 2024-05-21 12:31 | Outpatient (REF) | payer OTHER, SELFPAY ==
[2024-05-21 13:33] LABS: Blood Urea Nitrogen 44 mg/dl (9-20); Calcium 8.2 mg/dl (8.4-10.2); Carbon Dioxide 28 mmol/L (22-30); Chloride 100 mmol/L (98-107); Glucose 74 mg/dl (70-99); Potassium 5.2 mmol/L (3.5-5.1); Sodium 138 mmol/L (135-145); eGFR 31.31
== END ==
LOC: OLABP 12:31
PROVIDERS: ATTENDING PHYSICIAN Family Medicine
DX: I25.10 Atherosclerotic heart disease of native coronary artery without angina pectoris (principal); M62.59 Muscle wasting and atrophy, not elsewhere classified, multiple sites; R31.9 Hematuria, unspecified; R78.81 Bacteremia; N17.9 Acute kidney failure, unspecified; I34.0 Nonrheumatic mitral (valve) insufficiency; I48.19 Other persistent atrial fibrillation
CPT/HCPCS: 36415; 80048

== ENCOUNTER → 2024-05-28 10:43 | Outpatient (REF) | payer OTHER, SELFPAY ==
[2024-05-28 11:23] LABS: Blood Urea Nitrogen 37 mg/dl (9-20); Calcium 8.6 mg/dl (8.4-10.2); Carbon Dioxide 29 mmol/L (22-30); Chloride 100 mmol/L (98-107); Glucose 84 mg/dl (70-99); Potassium 4.8 mmol/L (3.5-5.1); Sodium 139 mmol/L (135-145)
== END ==
LOC: OLABP 10:43
PROVIDERS: ATTENDING PHYSICIAN Family Medicine
DX: I25.10 Atherosclerotic heart disease of native coronary artery without angina pectoris (principal); I13.0 Hypertensive heart and chronic kidney disease with heart failure and stage 1 through stage 4 chronic kidney disease, or unspecified chronic kidney disease; N18.30 Chronic kidney disease, stage 3 unspecified; G25.0 Essential tremor; M62.59 Muscle wasting and atrophy, not elsewhere classified, multiple sites; R31.9 Hematuria, unspecified; R78.81 Bacteremia; B95.2 Enterococcus as the cause of diseases classified elsewhere; N30.41 Irradiation cystitis with hematuria; D62 Acute posthemorrhagic anemia; I34.0 Nonrheumatic mitral (valve) insufficiency; I36.1 Nonrheumatic tricuspid (valve) insufficiency; I50.9 Heart failure, unspecified; D64.9 Anemia, unspecified; M62.81 Muscle weakness (generalized); R26.2 Difficulty in walking, not elsewhere classified; Z85.46 Personal history of malignant neoplasm of prostate; L40.8 Other psoriasis; B17.9 Acute viral hepatitis, unspecified; D69.6 Thrombocytopenia, unspecified; Z95.810 Presence of automatic (implantable) cardiac defibrillator; I48.19 Other persistent atrial fibrillation
CPT/HCPCS: 36415; 80048

== ENCOUNTER → 2024-06-15 09:49 | Outpatient (REF) | payer OTHER, SELFPAY ==
[2024-06-15 10:07] LABS: % Basophils 0.8 % (0-2); % Immature Granulocytes 0.6 % (0-0.5); % Lymphocytes 13.2 % (20.5-51.1); % Monocytes 17.9 % (1.7-9.3); % Neutrophils 66.5 % (42.2-75.2); Absolute Eosinophils 0.1 10^3/uL (0-0.7); Absolute Lymphocytes 0.7 10^3/uL (1.2-3.4); Absolute Monocytes 0.9 10^3/uL (0.1-0.6); Absolute Neutrophils 3.3 10^3/uL (1.4-6.5); Hematocrit 26.8 % (39.0-52.0); Hemoglobin 8.7 g/dL (13.0-18.0); Mean Corp Hgb Conc. 32.5 g/dL (33.0-37.0); Mean Corpuscular Hgb 31.4 pg (27.0-31.0); Mean Corpuscular Volume 96.8 fL (80.0-94.0); Mean Platelet Volume 9.6 fL (7.4-10.4); Nucleated Red Blood Cells % 0 % (-); Platelet Count 134 10^3/uL (130-400); Red Blood Cell Count 2.77 10^6/uL (4.70-6.10); White Blood Cell Count 4.9 10^3/uL (4.8-10.8)
[2024-06-15 10:54] LABS: Blood Urea Nitrogen 36 mg/dl (9-20); Calcium 8.2 mg/dl (8.4-10.2); Carbon Dioxide 30 mmol/L (22-30); Chloride 98 mmol/L (98-107); Glucose 84 mg/dl (70-99); Potassium 4.5 mmol/L (3.5-5.1); Sodium 135 mmol/L (135-145); eGFR 35.54
== END ==
LOC: OLABP 09:49
PROVIDERS: ATTENDING PHYSICIAN Family Medicine
DX: I25.10 Atherosclerotic heart disease of native coronary artery without angina pectoris (principal); I13.0 Hypertensive heart and chronic kidney disease with heart failure and stage 1 through stage 4 chronic kidney disease, or unspecified chronic kidney disease; N18.30 Chronic kidney disease, stage 3 unspecified; G25.0 Essential tremor; M62.59 Muscle wasting and atrophy, not elsewhere classified, multiple sites; R31.9 Hematuria, unspecified; R78.81 Bacteremia; B95.2 Enterococcus as the cause of diseases classified elsewhere; N30.41 Irradiation cystitis with hematuria; D62 Acute posthemorrhagic anemia; N17.9 Acute kidney failure, unspecified; I34.0 Nonrheumatic mitral (valve) insufficiency; D69.6 Thrombocytopenia, unspecified; I36.1 Nonrheumatic tricuspid (valve) insufficiency; Z95.810 Presence of automatic (implantable) cardiac defibrillator; I50.9 Heart failure, unspecified; I48.19 Other persistent atrial fibrillation; D64.9 Anemia, unspecified; M62.81 Muscle weakness (generalized); R26.2 Difficulty in walking, not elsewhere classified; Z85.46 Personal history of malignant neoplasm of prostate; L40.8 Other psoriasis; K21.9 Gastro-esophageal reflux disease without esophagitis
CPT/HCPCS: 36415; 80048; 85025

== ENCOUNTER → 2024-06-19 10:21 | Outpatient (REF) | payer OTHER, SELFPAY ==
[2024-06-19 12:43] LABS: Hematocrit 27.6 % (39.0-52.0); Hemoglobin 8.6 g/dL (13.0-18.0); Mean Corp Hgb Conc. 31.2 g/dL (33.0-37.0); Mean Corpuscular Volume 96.2 fL (80.0-94.0); Platelet Count 158 10^3/uL (130-400); Red Blood Cell Count 2.87 10^6/uL (4.70-6.10); Red Cell Dist. Width 16.3 % (11.5-14.5); White Blood Cell Count 8.2 10^3/uL (4.8-10.8)
[2024-06-19 13:15] LABS: ALT (SGPT) 587 U/L (0-50); AST (SGOT) 744 U/L (17-59); Alkaline Phosphatase 93 U/L (38-126); Blood Urea Nitrogen 45 mg/dl (9-20); Carbon Dioxide 28 mmol/L (22-30); Chloride 97 mmol/L (98-107); Glucose 70 mg/dl (70-99); Potassium 4.2 mmol/L (3.5-5.1); Sodium 135 mmol/L (135-145); Total Bilirubin 1.7 mg/dl (0.2-1.3); Total Protein 6.3 g/dl (6.3-8.2)
== END ==
LOC: OLABP 10:21
PROVIDERS: ATTENDING PHYSICIAN Family Medicine
DX: I25.10 Atherosclerotic heart disease of native coronary artery without angina pectoris (principal); I13.0 Hypertensive heart and chronic kidney disease with heart failure and stage 1 through stage 4 chronic kidney disease, or unspecified chronic kidney disease; N18.30 Chronic kidney disease, stage 3 unspecified; G25.0 Essential tremor; M62.59 Muscle wasting and atrophy, not elsewhere classified, multiple sites; R31.9 Hematuria, unspecified; R78.81 Bacteremia; B95.2 Enterococcus as the cause of diseases classified elsewhere; N30.41 Irradiation cystitis with hematuria; D62 Acute posthemorrhagic anemia; N17.9 Acute kidney failure, unspecified; I34.0 Nonrheumatic mitral (valve) insufficiency; D69.6 Thrombocytopenia, unspecified; I36.1 Nonrheumatic tricuspid (valve) insufficiency; Z95.810 Presence of automatic (implantable) cardiac defibrillator; I50.9 Heart failure, unspecified; I48.19 Other persistent atrial fibrillation; D64.9 Anemia, unspecified; M62.81 Muscle weakness (generalized); Z85.46 Personal history of malignant neoplasm of prostate; R26.2 Difficulty in walking, not elsewhere classified; L40.8 Other psoriasis; R21 Rash and other nonspecific skin eruption
CPT/HCPCS: 36415; 80053; 85027

== ENCOUNTER → 2024-07-24 10:28 | Outpatient (REF) | payer OTHER, SELFPAY ==
[2024-07-24 16:54] LABS: % Basophils 0.8 % (0-2); % Eosinophils 8.8 % (0-6); % Immature Granulocytes 0.2 % (0-0.5); % Lymphocytes 16.5 % (20.5-51.1); % Monocytes 16.7 % (1.7-9.3); Absolute Eosinophils 0.4 10^3/uL (0-0.7); Absolute Lymphocytes 0.8 10^3/uL (1.2-3.4); Absolute Monocytes 0.8 10^3/uL (0.1-0.6); Absolute Neutrophils 2.8 10^3/uL (1.4-6.5); Hematocrit 29.4 % (39.0-52.0); Hemoglobin 8.9 g/dL (13.0-18.0); Mean Corp Hgb Conc. 30.3 g/dL (33.0-37.0); Mean Corpuscular Hgb 29.9 pg (27.0-31.0); Mean Corpuscular Volume 98.7 fL (80.0-94.0); Mean Platelet Volume 9.4 fL (7.4-10.4); Nucleated Red Blood Cells % 0 % (-); Platelet Count 169 10^3/uL (130-400); Red Blood Cell Count 2.98 10^6/uL (4.70-6.10); Red Cell Dist. Width 17.2 % (11.5-14.5); White Blood Cell Count 4.9 10^3/uL (4.8-10.8)
[2024-07-24 16:59] LABS: Blood Urea Nitrogen 39 mg/dl (9-20); Calcium 8.3 mg/dl (8.4-10.2); Carbon Dioxide 34 mmol/L (22-30); Chloride 94 mmol/L (98-107); Glucose 79 mg/dl (70-99); Potassium 4.9 mmol/L (3.5-5.1); Sodium 130 mmol/L (135-145); eGFR 35.54
== END ==
LOC: OLABP 10:28
PROVIDERS: ATTENDING PHYSICIAN Family Medicine
DX: I25.10 Atherosclerotic heart disease of native coronary artery without angina pectoris (principal); M62.59 Muscle wasting and atrophy, not elsewhere classified, multiple sites; R31.9 Hematuria, unspecified; R78.81 Bacteremia; N30.41 Irradiation cystitis with hematuria
CPT/HCPCS: 36415; 80048; 85025